=== PATIENT | female | born 1935 ===

== ENCOUNTER 2017-02-12 06:34 | Day surgery (SDC) | payer MEDICARE, BC ==
[2017-02-07 07:17] VITALS: BMI 22.8
[2017-02-12] MEDS ORDERED: Lidocaine 2% Inj (20ml) ONE (06:42)
[2017-02-12] MEDS ORDERED: Phenylephrine 10 mg/ml Inj ONE (06:43)
[2017-02-12] MEDS ORDERED: Iohexol 350mgl/ml 50 ML ONE (06:43)
[2017-02-12] MEDS ORDERED: Iodixanol 320 MG/ML 100 ML BOTTLE IV ONE (06:43)
[2017-02-12] MEDS ORDERED: Iodixanol 320 MG/ML 200 ML BOTTLE IV ONE (06:43)
[2017-02-12] MEDS ORDERED: Nitroglycerin 50mg in D5W 0 MG/0 ML BOTTLE IV ONE (06:44)
[2017-02-12] MEDS ORDERED: DiphenhydrAMINE 50 mg/ml Inj ONE (07:05)
[2017-02-12] MEDS ORDERED: Famotidine 20mg/50ml 20 MG/50 ML BAG IVPB ONE (07:05)
[2017-02-12] MEDS ORDERED: Midazolam 2 MG/2 ML VIAL ONE (07:13)
[2017-02-12 07:42] LABS: BASO # 0.03 K/mm3 (0.0-2.0); BASO % 0.3 % (0.0-3.0); EOS # 0.2 (0.0-0.7); EOS % 2.5 % (1.5-5.0); GRAN # 6.09 (1.4-6.5); GRAN % 68.8 % (50.0-68.0); HEMATOCRIT 46.9 % (36.0-48.0); LYMPH # 1.7 (1.2-3.4); MEAN CELL VOLUME 86.4 fl (80.0-105.0); MEAN CORPUSCULAR HEMOGLOBIN 28.4 pg (25.0-35.0); MEAN CORPUSCULAR HGB CONC 32.8 g/dl (31.0-37.0); MEAN PLATELET VOLUME 11.8 fl (7.0-11.0); MONO # 0.8 (0.1-0.6); MONO % 9.4 % (1.0-6.0); RED CELL DISTRIBUTION WIDTH 15.3 % (11.5-14.5); WHITE BLOOD COUNT 8.9 10^3/ul (4.5-11.0)
[2017-02-12 07:51] LABS: INR 1.02 (0.93-1.08); PARTIAL THROMBOPLASTIN TIME 27.1 Seconds (23.7-30.8)
[2017-02-12 07:53] LABS: CALCIUM 10.1 mg/dL (8.4-10.5); POTASSIUM 3.8 mmol/L (3.6-5.0)
[2017-02-12 08:03] VITALS: O2SAT 98
--- NOTE | 2017-02-12 08:28 | HP ---
REASON FOR ADMISSION: Left heart catheterization, possible angioplasty, and abnormal stress test. BRIEF CLINICAL HISTORY: An 81-year-old female with past medical history significant for coronary artery disease, hypertension, hyperlipidemia, history of lymphocytic leukemia, pulmonary embolism in the past, history of DVT, was on Coumadin in 2016, and had a recent stress test abnormal suggestive of ischemia. The patient is scheduled for elective cardiac cath possible angioplasty. PAST MEDICAL HISTORY: Significant for lymphocytic leukemia, anemia, hypertension, hyperlipidemia, diabetes, pulmonary embolism, and history of DVT in the past. SOCIAL HISTORY: Denies any history of alcohol abuse. PREVIOUS CARDIAC WORKUP: As follows; the patient had echocardiography on 12/14/2015 that showed ejection fraction of 55% to 60%, mitral regurgitation, mild tricuspid regurgitation, and small pericardial effusion. The patient had pacemaker placed on 01/20/2016 and a single-chamber VVI pacemaker was placed with multiple pauses. Recently, the patient had a stress test done on 01/29/2017 that showed abnormal myocardial perfusion study, partially reversible inferolateral defect suspicious for ischemia. So, the patient is scheduled for elective cardiac cath possible angioplasty. CURRENT MEDICATIONS: The patient is taking valsartan one tablet daily, hydrochlorothiazide 25 mg daily, metformin, and glipizide. ALLERGIES: ALLERGY TO IODINE AND AMBIEN. REVIEW OF SYSTEMS: As per HPI. PHYSICAL EXAMINATION: As follows: VITAL SIGNS: Temperature afebrile, heart rate 64, and blood pressure 140/62. Height of the patient is 5 feet. Weight of the patient is 125 pounds. HEENT: PERRLA. Extraocular muscles intact. NECK: Supple. No carotid bruits. No thyromegaly. CHEST: Clear to auscultation. HEART: S1 and S2 regular. ABDOMEN: Soft. EXTREMITIES: Clubbing and cyanosis negative. LABORATORY DATA: Blood workup pending. IMPRESSION: Abnormal stress test suspicious for ischemia, ejection fraction of 56%, partial reversible inferolateral defect suspicious for ischemia, diabetes, hypertension, hyperlipidemia, history of pacemaker, and single-chamber VVI on 01/20/2016. RECOMMENDATIONS: We will order for the Plavix and aspirin. Find the blood workup and If the blood workup is within normal limits, we will pursue for cardiac catheterization. Further recommendation after cardiac catheterization. We will follow with you. Thank you Dr. Yeh for providing me the opportunity in taking care of the patient, [place]. James Man MD cc: William Yeh MD [facility] # [id number]
[2017-02-12] MEDS ORDERED: Eptifibatide 20 mg/10mL Inj IVP ONE (08:36)
[2017-02-12] MEDS ORDERED: Sodium Chloride 0.9% 1,000 ML IV SCH (09:15)
[2017-02-12 10:42] VITALS: RESP 20
[2017-02-12] MEDS ORDERED: Insulin Reg-MEDIUM-Coverage SC SCH (11:45)
--- NOTE | 2017-02-12 12:12 | CON ---
HISTORY OF PRESENT ILLNESS: An 81-year-old female with a history of hypertension, , hypothyroidism, CAD. The patient was most recently found to have a positive stress test and history of CAD. 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 Man, had a cardiac catheterization, was found to have an 80% blockage which was treated with a stent. The patient had been on Plavix in the past, however, developed a GI bleed and was taken off Plavix, but remained on aspirin. The patient will be put back on Plavix, but have her stool checked weekly for occult blood. The patient is seen with her daughter at the bedside, post catheterization and post stent. PHYSICAL EXAMINATION VITAL SIGNS: Stable. Blood pressure 162/94, temperature is 98.1. Blood sugar is 179, BUN and creatinine are stable at 24 and 1.1. H and H are within normal limits. GENERAL: She is a well-developed, well-nourished, female with a history of CVA with some right hemiparesis persistent. HEART EXAMINATION: Regular sinus rhythm. CHEST: Clear to auscultation. ABDOMEN: Obese, but benign. EXTREMITIES: Without cyanosis, clubbing, or edema. NEUROLOGIC EXAMINATION: Grossly intact. IMPRESSION: This is an 81-year-old female with a history of cerebrovascular accident, coronary artery disease, status post recent 80% blockage treated with stent, history of gastrointestinal bleed in the past. William Yeh MD
[2017-02-12 12:16] VITALS: TEMP 98.2
[2017-02-12] MEDS ORDERED: Potassium Chloride 20 mEq ER Tab PO ONE (13:00)
[2017-02-12 14:09] LABS: BASO # 0.02 K/mm3 (0.0-2.0); BASO % 0.2 % (0.0-3.0); GRAN # 8.27 (1.4-6.5); GRAN % 90.3 % (50.0-68.0); HEMATOCRIT 41.7 % (36.0-48.0); LYMPH # 0.8 (1.2-3.4); LYMPH % 9.1 % (22.0-35.0); MEAN CELL VOLUME 85.8 fl (80.0-105.0); MEAN CORPUSCULAR HEMOGLOBIN 28.2 pg (25.0-35.0); MEAN CORPUSCULAR HGB CONC 32.9 g/dl (31.0-37.0); MEAN PLATELET VOLUME 11.8 fl (7.0-11.0); MONO % 0.4 % (1.0-6.0); PLATELET COUNT 177 10^3/uL (120.0-450.0); RED CELL DISTRIBUTION WIDTH 15.2 % (11.5-14.5); WHITE BLOOD COUNT 9.2 10^3/ul (4.5-11.0)
[2017-02-12 14:16] LABS: CALCIUM 9.1 mg/dL (8.4-10.5); POTASSIUM 4.1 mmol/L (3.6-5.0)
[2017-02-12 14:28] LABS: BAND 2 % (0-2); NEUTROPHIL 94 % (50.0-70.0); PLATELET ESTIMATE NORMAL (NORMAL)
[2017-02-12 15:36] VITALS: BP 109/54; PULSE 69
--- NOTE | 2017-02-12 22:29 | CARD ---
APPROVED REPORT Procedure(s) performed: Left Heart Catheterization PTCA with Stenting of Proximal LAD HISTORY The patient is a 81 year-old female with a history of : most recent EF: 56%. (EF Method: RADIONUCLIDE), previous CVA remote >= 2 weeks, diabetes mellitus with oral treatment , hypertension , dyslipidemia , cerebrovascular disease , Hx. of lymphocytic leukemia,DVT,PE,S/p PPM on 01/20/2016 who has recent abnormal stress test , reversible infero-lateral ischemia.. INDICATION The indication(s) include : positive stress test. CASE TECHNIQUE The patient was brought electively to the Cardiac Catheterization Laboratory in a fasting state and was prepped and draped in a sterile manner. The right femoral groin was infiltrated with 2% Lidocaine subcutaneous anesthesia. A 6 Fr x 11 cm Edel sheath was inserted into the right femoral artery without difficulty. Coronary angiography was performed using coronary diagnostic catheters. The left coronary system was accessed and visualized with a Diagnostic ,5 Fr JL 3.5 catheter. The right coronary system was accessed and visualized with a Diagnostic ,5 Fr JR 3.5 catheter. The left ventricle was accessed and visualized with a 5 Fr Pigtail 145 (Angled) catheter. Left ventricular/Aortic Valve gradient assessed on pullback. Left ventriculogram was performed in CHURCH projection. Closure device was deployed with a 6 Fr Angio-Seal without any complications. The patient tolerated the procedure well and there were no complications associated with the procedure. Vessel Analysis The patient's coronary anatomy is right dominant. The left main coronary artery is a medium size vessel with diffuse calcification noted throughout this vessel and without significant stenosis. The left main bifurcates to the left anterior descending and circumflex. The left anterior descending artery is a large size vessel with diffuse calcification noted throughout this vessel and with significant stenosis. There is a 80% stenosis in the proximal segment. long tubular stenosis The first diagonal branch is a medium size vessel with diffuse calcification noted throughout this vessel and without significant stenosis. The second diagonal branch is a medium size vessel with diffuse calcification noted throughout this vessel and without significant stenosis. The third diagonal branch is a medium size vessel with diffuse calcification noted throughout this vessel and without significant stenosis. The circumflex artery is a medium size vessel with diffuse calcification noted throughout this vessel and without significant stenosis. The first obtuse marginal branch is a large size vessel with diffuse calcification noted throughout this vessel and with significant stenosis. There is a 60% stenosis in the proximal segment. long tubular stenosis The right coronary artery is a large size vessel with diffuse calcification noted throughout this vessel and without significant stenosis. There is a 40% stenosis in the mid segment. The right posterior descending artery is a large size vessel with diffuse calcification noted throughout this vessel and with significant stenosis. There is a 100% stenosis in the mid segment. multiple stenoses The right posterolateral branch is a large size vessel with diffuse calcification noted throughout this vessel and without significant stenosis. R PDA iswell collateralized from LAD Left Ventricle The left ventricle is normal in size with normal contractility. There was no cardiomyopathy. The left ventricular ejection fraction is estimated to be 55%. The left ventricular end diastolic pressure is 25 mmHg. There was no gradient across the aortic valve upon pullback. PCI Technique Lesion Anticoagulation was achieved with Heparin. Percutaneous coronary intervention was performed on the proximal left anterior descending artery segment. The lesion stenosis prior to intervention was 80-90% with KEYANNA 2 flow. A 6 Fr XB 3 Guide Catheter was used to engage the ostium. A 0.014 x 182 cm Luge Interventional Guidewire was used to cross the lesion. BALLOON DILATION A Balloon catheter 2.5 x 10 mm Sprinter RX was inserted and inflated up to 8.00atm for 22seconds. STENT DEPLOYMENT A drug-eluting stent 3.0 x 15 mm Resolute JUAN was inserted and inflated up to 12.00atm for 15seconds. Final angiography reveals 0 % stenosis with KEYANNA 3 flow. 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 High grade Stenosis in proximal LAD Moderate diz in Cx( OM1). Preserved lv Fx,EF-55,EDP-25 mm of Hg Successful PTCA with JUAN of proximal LAD. Recommendations Daily ASA with Plavix for at least one year Aggressive Medical TherapyCardiac Risk Reduction Program CC;Shahzad / Yelena
--- NOTE | 2017-02-13 09:44 | CARD ---
APPROVED REPORT EKG Measurement Heart [id number] <Conclusion> Electronic ventricular pacemaker
--- NOTE | 2017-02-13 09:44 | CARD ---
APPROVED REPORT EKG Measurement Heart [id number] <Conclusion> Electronic ventricular pacemaker
[2017-02-13] MEDS ORDERED: Non Formulary Medication (Valsartan/Hydrochlorothiazide [Valsartan-Hctz 320-25 Mg Tab] 1 T PO SCH (10:00)
== END 2017-02-12 18:03 | disposition home or self-care (01) ==
LOC: CATH 06:34 → 2RSO 09:00 → CATH 18:03
PROVIDERS: ATTEND Internal Medicine Cardiovascular Disease
DX: I25.10 Atherosclerotic heart disease of native coronary artery without angina pectoris (principal); I10 Essential (primary) hypertension; I69.351 Hemiplegia and hemiparesis following cerebral infarction affecting right dominant side; E78.5 Hyperlipidemia, unspecified; C91.90 Lymphoid leukemia, unspecified not having achieved remission; E11.9 Type 2 diabetes mellitus without complications; I08.1 Rheumatic disorders of both mitral and tricuspid valves; E03.9 Hypothyroidism, unspecified; Z86.711 Personal history of pulmonary embolism; Z86.718 Personal history of other venous thrombosis and embolism; Z95.0 Presence of cardiac pacemaker
CPT/HCPCS: 36415; 80048; 80061; 82948; 85025; 85175; 85610; 85730; 86850; 86900; 93005; 93458; 99152; C1725; C1760; C1769 ×2; C1874; C1887 ×2; C2629; C9600; J1200; J1327; J1644; J1940; J2250; J2930; J3010; J7040 ×2; Q9967

== ENCOUNTER 2018-05-27 09:00 | Outpatient (CLI) | payer MEDICARE, BC | END 2018-05-27 09:15 | disposition home or self-care (01) | LOC: CARDIO 09:00 ==

== ENCOUNTER 2018-06-20 13:26 | Inpatient (IN) | payer MEDICARE, BC ==
[2018-06-20 13:26] VITALS: BMI 22.1
--- NOTE | 2018-06-20 13:39 | ED PDOC ---
Arrival/HPI - General Time Seen by Provider: 06/20/18 13:27 Historian: Patient, Spouse - History of Present Illness Narrative History of Present Illness (Text): 06/20/18 13:53 82 year old female, whose past medical history includes CVA, hypertension, NIDD M, chronic lymphocytic leukemia, and anemia, who presents to the emergency department complaining of ulcer on the left foot for the past 2 weeks. Patient states the ulcer is between the 4th and 5th digit on the left foot. She saw her clay house worker for the presenting complaint and he sent her to the emergency department for further evaluation with rx saying "painful ischemic ulcer left 4th digit. Please admit patient and consult Dr. Okeefe. Needs vascular consult." She denies any injury to the area, fevers, chills, headache, dizziness, chest pain, shortness of breath, dyspnea on exertion, cough, abdominal pain, nausea, vomiting, diarrhea, back pain, neck pain, or any other complaint. PMD: Dr. Dalton Yeh Sprayer Hand: Dr. Paz 06/20/18 15:07 Time/Duration: < month (2 weeks) Symptom Onset: Gradual Symptom Course: Unchanged Activities at Onset: Light Context: Home Past Medical History - Provider Review Nursing Documentation Reviewed: Yes - Infectious Disease Hx of Infectious Diseases: None - Tetanus Immunization Tetanus Immunization: Up to Date - Cardiac Hx Pacemaker: Yes - Pulmonary Hx Asthma: No (family denies) - Neurological Hx Paralysis: No - HEENT Hx Cataracts: Yes (left eye) Hx Glaucoma: Yes (left eye had sx. right eye needs sx) - Renal Hx Renal Disorder: No - Endocrine/Metabolic Hx Diabetes Mellitus Type 1: Yes - Hematological/Oncological Hx Blood Transfusions: No Hx Blood Transfusion Reaction: No - Integumentary Other/Comment: shingle - Musculoskeletal/Rheumatological Hx Arthritis: Yes - Gastrointestinal Hx Gastroesophageal Reflux: Yes - Genitourinary/Gynecological Hx Genitourinary Disorders: No Hx Reproductive Disorders: No - Psychiatric Hx Emotional Abuse: No Hx Physical Abuse: No Hx Substance Use: No - Surgical History Hx Cardiac Catheterization: Yes (stent x1) - Anesthesia Hx Anesthesia Reactions: No Hx Malignant Hyperthermia: No - Suicidal Assessment Feels Threatened In Home Enviroment: No Family/Social History - Physician Review Nursing Documentation Reviewed: Yes Family/Social History: No Known Family HX Smoking Status: Never Smoked Hx Alcohol Use: No Hx Substance Use: No Hx Substance Use Treatment: No Allergies/Home Meds Allergies/Adverse Reactions: Allergies iodine Allergy (Verified 05/22/16 16:53) ANAPHYLAXIS zolpidem tartrate [From Ambien] Adverse Reaction (Verified 05/22/16 16:53) DIZZINESS Home Medications: Home Meds Medication Instructions Recorded Confirmed RX: Glipizide 10 mg PO BID 08/20/14 02/25/18 Linagliptin/Metformin HCl 1 tab PO BID 12/13/15 02/25/18 [Jentadueto 2.5 mg-500 mg] Valsartan/Hydrochlorothiazide 1 tab PO DAILY 12/13/15 02/25/18 [Valsartan and Hydrochlorothiazide 25 mg-320 M] Dorzolamide 2%/Timolol 0.5% 1 uci BOTHEYES DAILY 02/12/17 02/25/18 [Cosopt Ocumeter Plus 2%-0.5% 10 Ml] Aspirin [Adult Aspirin] 81 mg PO DAILY 02/25/18 02/25/18 Clopidogrel [Plavix] 75 mg PO DAILY 02/25/18 02/25/18 Review of Systems - Review of Systems Constitutional: absent: Fevers Eyes: absent: Vision Changes Respiratory: absent: SOB, Cough Cardiovascular: absent: Chest Pain Gastrointestinal: absent: Abdominal Pain, Diarrhea, Nausea, Vomiting Genitourinary Female: absent: Dysuria Musculoskeletal: absent: Back Pain, Neck Pain Skin: Ulcer (to the left foot between the 4th and 5th digit). absent: Rash Neurological: absent: Headache, Dizziness Endocrine: absent: Diaphoresis Physical Exam Vital Signs Reviewed: Yes Temperature: Afebrile Blood Pressure: Normal Pulse: Regular Respiratory Rate: Normal Appearance: Positive for: Well-Appearing, Non-Toxic, Comfortable Pain Distress: None Mental Status: Positive for: Alert and Oriented X 3 - Systems Exam Head: Present: Atraumatic, Normocephalic Pupils: Present: PERRL Extroacular Muscles: Present: EOMI Conjunctiva: Present: Normal Mouth: Present: Moist Mucous Membranes Neck: Present: Normal Range of Motion Respiratory/Chest: Present: Clear to Auscultation, Good Air Exchange. No: Respiratory Distress, Accessory Muscle Use Cardiovascular: Present: Regular Rate and Rhythm, Normal S1, S2. No: Murmurs Abdomen: No: Tenderness, Distention, Peritoneal Signs Back: Present: Normal Inspection Upper Extremity: Present: Normal Inspection. No: Cyanosis, Edema Lower Extremity: Present: NORMAL PULSES (positive doppler pulses to the left foot ), Other (dime size lesion to the lateral side of the 4th toe, small amount of erythema around the lesion. ). No: Edema Neurological: Present: GCS=15, CN II-XII Intact, Speech Normal Skin: Present: Warm, Dry, Normal Color. No: Rashes Psychiatric: Present: Alert, Oriented x 3, Normal Insight, Normal Concentration Medical Decision Making ED Course and Treatment: 06/20/18 14:01 Impression: 82 year old female who presents to the complaining of ulcer to the left foot. Plan: -- Labs -- Blood Culture -- Left lower extremity ultra sound -- Reassess and disposition Prior Visits: Notes and results from previous visits were reviewed. Progress Notes: 06/20/18 15:07 Podiatry resident aware of patient 06/20/18 15:19 Ultra Sound reviewed by radiologist, shows: IMPRESSION: 1. limited study due to calcified vessels. 2. Possible right SFA occlusive disease. 3. bilateral tibial disease. 06/20/18 15:50 Foot X-ray reviewed by radiologist, shows: IMPRESSION: No acute findings 06/20/18 17:15 evaluated and recommends admission for diabetic foot wound. Spoke to CEM[employer]ULT INSTALLER covering for Dr. Yeh who accepts patient. Wound cultures sent. - Lab Interpretations I have reviewed the lab results: Yes - Scribe Statement The provider has reviewed the documentation as recorded by the Scribe Ny Olver[place] Provider Scribe Attestation: All medical record entries made by the Scribe were at my direction and personally dictated by me. I have reviewed the chart and agree that the record accurately reflects my personal performance of the history, physical exam, medical decision making, and the department course for this patient. I have also personally directed, reviewed, and agree with the discharge instructions and disposition. Disposition/Present on Arrival - Present on Arrival Any Indicators Present on Arrival: No History of DVT/PE: Yes History of Uncontrolled Diabetes: No Urinary Catheter: No History Surgical Site Infection Following: None - Disposition Have Diagnosis and Disposition been Completed?: Yes Diagnosis: Wound, open, foot Disposition: HOSPITALIZED Disposition Time: 13:52 Patient Plan: Admission Condition: FAIR Referrals: William Yeh MD [Primary Care Provider] - Follow up with primary
[2018-06-20 14:59] LABS: BASO # 0.04 K/mm3 (0.0-2.0); BASO % 0.4 % (0.0-3.0); EOS # 0.3 (0.0-0.7); EOS % 2.8 % (1.5-5.0); HEMOGLOBIN 14.8 g/dL (12.0-16.0); LYMPH # 2.2 (1.2-3.4); LYMPH % 22.9 % (22.0-35.0); MEAN CELL VOLUME 86.6 fl (80.0-105.0); MEAN CORPUSCULAR HEMOGLOBIN 28.4 pg (25.0-35.0); MEAN CORPUSCULAR HGB CONC 32.7 g/dl (31.0-37.0); MEAN PLATELET VOLUME 11.4 fl (7.0-11.0); MONO % 10.6 % (1.0-6.0); RBC 5.22 10^6/uL (3.5-6.1); RED CELL DISTRIBUTION WIDTH 14.6 % (11.5-14.5); WHITE BLOOD COUNT 9.4 10^3/uL (4.5-11.0)
[2018-06-20 15:08] LABS: ALB/GLOB RATIO 1.6 (1.1-1.8); ALBUMIN 4.8 g/dL (3.0-4.8); ALT/SGPT 15 U/L (7-56); AST/SGOT 31 U/L (14-36); BLOOD UREA NITROGEN 32 mg/dL (7-21); GFR NON-AFRICAN AMERICAN 53
--- NOTE | 2018-06-20 15:17 | US ---
PROCEDURE: Lower extremity VERONICA exam HISTORY: Peripheral vascular disease with pain and ulceration. Diabetes.. PHYSICIAN(S): Manolo Armendariz MD. FINDINGS: The exam is very limited by calcified noncompressible vessels at all levels. The resting ABIs are not obtainable The brachial systolic pressures are symmetric. The high and low thigh PVR waveforms are relatively normal and symmetric. The left calf PVR waveform is normal and augments normally. The right calf PVR waveform does not augment. This could represent subtle right SFA occlusive disease. The ankle and metatarsal waveforms are severely blunted bilaterally and symmetric. This is consistent with bilateral tibial disease. IMPRESSION: 1. Limited study due to calcified vessels. 2. Possible right SFA occlusive disease. 3. Bilateral tibial disease.
--- NOTE | 2018-06-20 15:46 | RAD ---
Date of service: 06/20/2018 PROCEDURE: Left Foot Radiographs. HISTORY: lesion btw 4th and 5th toe COMPARISON: None. FINDINGS: BONES: Bone alignment is normal. There is diffuse bone demineralization. There is mild periarticular calcification in the 5th proximal interphalangeal joint and at the 4th meta tarsal phalangeal joint. No acute fracture or bone destruction JOINTS: Normal. SOFT TISSUES: Normal. OTHER FINDINGS: There are atherosclerotic vascular calcifications with. IMPRESSION: No acute findings.
--- NOTE | 2018-06-20 17:28 | CP.PCM.CON ---
<Harry Pickens - Last Filed: 06/21/18 07:55> History of Present Illness - History of Present Illness History of Present Illness: Podiatry consult note for Dr. Paz/Dr. Rice 82 year old female with PMHx of CVA, hypertension, NIDDM, chronic lymphocytic leukemia, and anemia presented to the emergency department complaining of ulcer on the left foot for the past 2 weeks. Patient saw her distance learning administrator who sent her to the emergency department for further evaluation with with vascular consult. [facility] present at bedside who denies any injury to the area, fevers, chills, headache, dizziness, chest pain, shortness of breath, dyspnea on exertion, cough, abdominal pain, nausea, vomiting, diarrhea, back pain, neck pain, or any other complaint. PMD: Dr. Dalton Yeh Emergency Management Director: Dr. Paz Review of Systems - Review of Systems All systems: reviewed and no additional remarkable complaints except Review of Systems: As per HPI Past Patient History - Infectious Disease Hx of Infectious Diseases: None - Tetanus Immunizations Tetanus Immunization: Up to Date - Past Medical History & Family History Past Medical History?: Yes - Past Social History Smoking Status: Never Smoked - CARDIAC Hx Pacemaker: Yes - PULMONARY Hx Asthma: No (family denies) - NEUROLOGICAL Hx Paralysis: No - HEENT Hx Cataracts: Yes (left eye) Hx Glaucoma: Yes (left eye had sx. right eye needs sx) - RENAL Hx Chronic Kidney Disease: No - ENDOCRINE/METABOLIC Hx Diabetes Mellitus Type 1: Yes - HEMATOLOGICAL/ONCOLOGICAL Hx Blood Transfusions: No Hx Blood Transfusion Reaction: No - INTEGUMENTARY Other/Comment: shingle - MUSCULOSKELETAL/RHEUMATOLOGICAL Hx Arthritis: Yes - GASTROINTESTINAL Hx Gastroesophageal Reflux: Yes - GENITOURINARY/GYNECOLOGICAL Hx Genitourinary Disorders: No Hx Reproductive Disorders: No - PSYCHIATRIC Hx Emotional Abuse: No Hx Physical Abuse: No Hx Substance Use: No - SURGICAL HISTORY Hx Cardiac Catheterization: Yes (stent x1) - ANESTHESIA Hx Anesthesia Reactions: No Hx Malignant Hyperthermia: No Meds Allergies/Adverse Reactions: Allergies Allergy/AdvReac Type Severity Reaction Status Date / Time iodine Allergy ANAPHYLAXIS Verified 06/20/18 20:40 zolpidem tartrate AdvReac DIZZINESS Verified 06/20/18 20:40 [From Ambien] Physical Exam - Constitutional Appears: Well, Non-toxic, No Acute Distress - Head Exam Head Exam: ATRAUMATIC, NORMOCEPHALIC - Extremities Exam Additional comments: Bilateral Lower Extremity Exam VASC: DP and PT non-palpable bilaterally, CFT delayed, TG warm to cool, no edema noted NEURO: grossly intact DERM: 1 cm X 1 cm wound noted to the lateral aspect of the right 4th digit with 80% fibrotic base with a 20% necrotic eschar, no drainage, no probe to bone, no malodor, no tunneling or tracking ORTHO: significant pain on palpation to the wound, and pain with 4th and 5th digit ranges of motion - Neurological Exam Neurological exam: Alert, Oriented x3 - Psychiatric Exam Psychiatric exam: Normal Affect, Normal Mood Results - Vital Signs Recent Vital Signs: Last Vital Signs Temp 98.1 F 06/20/18 16:51 Pulse 52 L 06/20/18 16:51 Resp 18 06/20/18 16:51 BP 112/54 L 06/20/18 16:51 Pulse Ox 97 06/20/18 16:51 - Labs Result Diagrams: 06/20/18 14:30 06/20/18 14:30 Labs: Laboratory Results - last 24 hr 06/20/18 06/20/18 14:30 14:30 WBC 9.4 RBC 5.22 Hgb 14.8 Hct 45.2 MCV 86.6 MCH 28.4 MCHC 32.7 RDW 14.6 H Plt Count 231 MPV 11.4 H Neut % (Auto) 63.3 Lymph % (Auto) 22.9 [place] % (Auto) 10.6 H Eos % (Auto) 2.8 Baso % (Auto) 0.4 Lymph # (Auto) 2.2 [place] # (Auto) 1.0 H Eos # (Auto) 0.3 Baso # (Auto) 0.04 Absolute Neuts (auto) 5.93 Sodium 143 Potassium 3.9 Chloride 105 Carbon Dioxide 28 Anion Gap 14 BUN 32 H Creatinine 1.0 Est GFR ( Amer) > 60 Est GFR (Non-Af Amer) 53 Random Glucose 85 Calcium 11.0 H Total Bilirubin 0.5 AST 31 ALT 15 Alkaline Phosphatase 68 Total Protein 7.8 Albumin 4.8 Globulin 3.0 Albumin/Globulin Ratio 1.6 Assessment & Plan - Assessment and Plan (Free Text) Assessment: 82 y/o female patient was seen and evaluated for right 4th digit wound Plan: Patient seen and evaluated at bedside with Dr. Rice Plan discussed with attending Chart, labs and vitals reviewed Vascular placed on consult, recommendations appreciated VEROINCA/PVR ordered Wound dressed with betadine, DSD Podiatry will continue to follow patient - Date & Time Date: 06/21/18 Time: 08:13 <Too Rice - Last Filed: 06/21/18 14:37> Meds - Medications Medications: Current Medications Acetaminophen (Tylenol 325mg Tab) 650 mg PO Q4H PRN PRN Reason: Pain, moderate (4-7) Last Admin: 06/21/18 12:32 Dose: 650 mg Aspirin (Ecotrin) 81 mg PO DAILY [facility] Last Admin: 06/21/18 10:27 Dose: 81 mg Clopidogrel Bisulfate (Plavix) 75 mg PO DAILY [facility] Last Admin: 06/21/18 10:27 Dose: 75 mg Dorzolamide/Timolol (Cosopt 2%-0.5% Opht) 1 drop OU DAILY [facility] Glipizide (Glucotrol) 10 mg PO BID [facility] Last Admin: 06/21/18 10:27 Dose: 10 mg Home Med (Home Med) 1 unit PO HS [facility] Hydrochlorothiazide (Hydrodiuril) 25 mg PO DAILY [facility] Last Admin: 06/21/18 10:26 Dose: 25 mg Ampicillin Sodium/Sulbactam Sodium (Unasyn) 1 gm in 100 mls @ 100 mls/hr IVPB Q8 [facility]; Protocol Last Admin: 06/21/18 06:38 Dose: 100 mls/hr Linagliptin/Metformin Hcl [ Jentadueto 2.5 Mg- 500 Mg Tab] (Home Med) 1 tab PO BID [facility] Last Admin: 06/21/18 10:27 Dose: Not Given Valsartan (Diovan) 320 mg PO DAILY [facility] Last Admin: 06/21/18 10:27 Dose: 320 mg Results - Vital Signs Recent Vital Signs: Last Vital Signs Temp 98 F 06/21/18 06:00 Pulse 64 06/21/18 06:00 Resp 18 06/21/18 06:00 BP 137/72 06/21/18 06:00 Pulse Ox 97 06/21/18 06:00 - Labs Result Diagrams: 06/20/18 14:30 06/20/18 14:30 Labs: Laboratory Results - last 24 hr 02/07/19 02/07/19 02/07/19 14:30 14:30 18:42 WBC 9.4 RBC 5.22 Hgb 14.8 Hct 45.2 MCV 86.6 MCH 28.4 MCHC 32.7 RDW 14.6 H Plt Count 231 MPV 11.4 H Neut % (Auto) 63.3 Lymph % (Auto) 22.9 [place] % (Auto) 10.6 H Eos % (Auto) 2.8 Baso % (Auto) 0.4 Lymph # (Auto) 2.2 [place] # (Auto) 1.0 H Eos # (Auto) 0.3 Baso # (Auto) 0.04 Absolute Neuts (auto) 5.93 Sodium 143 Potassium 3.9 Chloride 105 Carbon Dioxide 28 Anion Gap 14 BUN 32 H Creatinine 1.0 Est GFR ( Amer) > 60 Est GFR (Non-Af Amer) 53 POC Glucose (mg/dL) 175 H Random Glucose 85 Calcium 11.0 H Total Bilirubin 0.5 AST 31 ALT 15 Alkaline Phosphatase 68 Total Protein 7.8 Albumin 4.8 Globulin 3.0 Albumin/Globulin Ratio 1.6 PTH Intact Whole Molec 06/20/18 06/20/18 06/21/18 20:57 21:00 07:06 WBC RBC Hgb Hct MCV MCH MCHC RDW Plt Count MPV Neut % (Auto) Lymph % (Auto) [place] % (Auto) Eos % (Auto) Baso % (Auto) Lymph # (Auto) [place] # (Auto) Eos # (Auto) Baso # (Auto) Absolute Neuts (auto) Sodium Potassium Chloride Carbon Dioxide Anion Gap BUN Creatinine Est GFR ( Amer) Est GFR (Non-Af Amer) POC Glucose (mg/dL) 281 H 72 Random Glucose Calcium Total Bilirubin AST ALT Alkaline Phosphatase Total Protein Albumin Globulin Albumin/Globulin Ratio PTH Intact Whole Molec 14 Attending/Attestation - Attestation I have personally seen and examined this patient.: Yes I have fully participated in the care of the patient.: Yes I have reviewed all pertinent clinical information: Yes
[2018-06-20] MEDS ORDERED: Morphine 2 mg/ml ISec IVP STA (18:56)
[2018-06-20] MEDS ORDERED: Influenza Vaccine 60 mcg/0.5 mL SYR (4YR UP) IM ONE (21:53)
[2018-06-20] MEDS ORDERED: Pneumococcal 23-Valent Vaccine IM ONE (21:53)
[2018-06-20] MEDS: AMPicillin/Sulbactam 1.5gm 1 GM/100 ML BAG IVPB SCH (22:56)
--- NOTE | 2018-06-21 02:16 | CP.PCM.PN ---
Subjective - Date & Time of Evaluation Date of Evaluation: 06/21/18 Time of Evaluation: 02:16 - Subjective Subjective: Patient was seen because she had requested pain medicine for pain left 4th toe. Has no other complaints. Medical record was reviewed. This 82 year old woman was admitted with ulcer on left foot for 2 weeks. Has PMH of NIDDM,HTN, CVA,CLL,anemia. Objective - Vital Signs/Intake and Output Vital Signs (last 24 hours): Temp Pulse Resp BP Pulse Ox 98 F 81 20 159/82 H 99 06/20/18 21:48 06/20/18 21:48 06/20/18 21:48 06/20/18 21:48 06/20/18 21:48 - Medications Medications: Current Medications Aspirin (Ecotrin) 81 mg PO DAILY [facility] Clopidogrel Bisulfate (Plavix) 75 mg PO DAILY [facility] Dorzolamide/Timolol (Cosopt 2%-0.5% Opht) 1 drop OU DAILY [facility] Glipizide (Glucotrol) 10 mg PO BID [facility] Hydrochlorothiazide (Hydrodiuril) 25 mg PO DAILY [facility] Ampicillin Sodium/Sulbactam Sodium (Unasyn) 1 gm in 100 mls @ 100 mls/hr IVPB Q8 [facility]; Protocol Last Admin: 06/20/18 22:56 Dose: 100 mls/hr Linagliptin/Metformin Hcl [ Jentadueto 2.5 Mg- 500 Mg Tab] (Home Med) 1 tab PO BID [facility] Valsartan (Diovan) 320 mg PO DAILY [facility] - Labs Labs: 06/20/18 14:30 06/20/18 14:30 - Constitutional Appears: Well, No Acute Distress - Head Exam Head Exam: ATRAUMATIC, NORMAL INSPECTION, NORMOCEPHALIC - Eye Exam Eye Exam: Normal appearance - ENT Exam ENT Exam: Normal External Ear Exam - Neck Exam Neck Exam: Normal Inspection - Respiratory Exam Respiratory Exam: NORMAL BREATHING PATTERN - Cardiovascular Exam Cardiovascular Exam: absent: JVD - GI/Abdominal Exam GI & Abdominal Exam: absent: Distended - Rectal Exam Rectal Exam: Deferred - Exam Additional comments: Deferred. - Extremities Exam Additional comments: Left 4th toe infection+ - Back Exam Back Exam: NORMAL INSPECTION - Neurological Exam Neurological Exam: Alert, Awake - Psychiatric Exam Psychiatric exam: Normal Affect, Normal Mood - Skin Skin Exam: Normal Color Assessment and Plan - Assessment and Plan (Free Text) Assessment: Left foot infection. NIDDM. HTN. Anemia. Chronic CLL. Plan: Tylenol 650 mg PO x 1. Continue present management.
[2018-06-21] MEDS: AMPicillin/Sulbactam 1.5gm 1 GM/100 ML BAG IVPB SCH ×3 (06:38→22:36)
[2018-06-21] MEDS ORDERED: Non Formulary Medication (Valsartan/Hydrochlorothiazide [Valsartan-Hctz 320-25 Mg Tab] 1 T PO SCH (10:00)
[2018-06-21] MEDS: LINAGLIPTIN PO SCH ×2 (10:27→19:34)
[2018-06-21] MEDS: METFORMIN HCL PO SCH ×2 (10:27→19:34)
--- NOTE | 2018-06-21 13:20 | CP.PCM.PN ---
<Harry Pickens - Last Filed: 06/21/18 13:16> Subjective - Date & Time of Evaluation Date of Evaluation: 06/21/18 Time of Evaluation: 13:16 - Subjective Subjective: Podiatry consult note for Dr. Paz/Dr. Rice 82 year old female seen and evaluated at bedside for left foot 4th digit wound. Patient's daughter is present at bedside. Patient and daughter both state patient is in pain to her left foot. Patient otherwise reports no acute events overnight. Objective - Vital Signs/Intake and Output Vital Signs (last 24 hours): Temp Pulse Resp BP Pulse Ox 98 F 64 18 137/72 97 06/21/18 06:00 06/21/18 06:00 06/21/18 06:00 06/21/18 06:00 06/21/18 06:00 Intake and Output: 06/21/18 06/21/18 06:59 18:59 Intake Total 120 Balance 120 - Medications Medications: Current Medications Acetaminophen (Tylenol 325mg Tab) 650 mg PO Q4H PRN PRN Reason: Pain, moderate (4-7) Last Admin: 06/21/18 12:32 Dose: 650 mg Aspirin (Ecotrin) 81 mg PO DAILY [facility] Last Admin: 06/21/18 10:27 Dose: 81 mg Clopidogrel Bisulfate (Plavix) 75 mg PO DAILY [facility] Last Admin: 06/21/18 10:27 Dose: 75 mg Dorzolamide/Timolol (Cosopt 2%-0.5% Opht) 1 drop OU DAILY [facility] Glipizide (Glucotrol) 10 mg PO BID [facility] Last Admin: 06/21/18 10:27 Dose: 10 mg Home Med (Home Med) 1 unit PO [facility] Hydrochlorothiazide (Hydrodiuril) 25 mg PO DAILY [facility] Last Admin: 06/21/18 10:26 Dose: 25 mg Ampicillin Sodium/Sulbactam Sodium (Unasyn) 1 gm in 100 mls @ 100 mls/hr IVPB Q8 [facility]; Protocol Last Admin: 06/21/18 06:38 Dose: 100 mls/hr Linagliptin/Metformin Hcl [ Jentadueto 2.5 Mg- 500 Mg Tab] (Home Med) 1 tab PO BID [facility] Last Admin: 06/21/18 10:27 Dose: Not Given Valsartan (Diovan) 320 mg PO DAILY [facility] Last Admin: 06/21/18 10:27 Dose: 320 mg - Labs Labs: 06/20/18 14:30 06/20/18 14:30 - Constitutional Appears: Well, Non-toxic, No Acute Distress - Head Exam Head Exam: ATRAUMATIC, NORMOCEPHALIC - Extremities Exam Additional comments: Bilateral Lower Extremity Exam VASC: DP and PT non-palpable bilaterally, CFT delayed, TG warm to cool, no edema noted NEURO: grossly intact DERM: 1 cm X 1 cm wound noted to the lateral aspect of the right 4th digit with 80% fibrotic base with a 20% necrotic eschar, no drainage, no probe to bone, no malodor, no tunneling or tracking ORTHO: significant pain on palpation to the wound, and pain with 4th and 5th digit ranges of motion - Neurological Exam Neurological Exam: Alert, Awake, Oriented x3 - Psychiatric Exam Psychiatric exam: Normal Affect, Normal Mood Assessment and Plan - Assessment and Plan (Free Text) Assessment: 82 y/o female patient was seen and evaluated for right 4th digit wound Plan: Patient seen and evaluated at bedside with Dr. Rice Plan discussed with attending Chart, labs and vitals reviewed Left foot X-ray: no acute findings on X-ray VERONICA/PVR: limited study, calcified vessels, possible right SFA occlusive disease Vascular placed on consult, recommendations appreciated Pending Vascular follow-up Wound Culture Pending Wound dressed with betadine, DSD Podiatry will continue to follow patient <Too Rice - Last Filed: 06/21/18 14:37> Objective - Vital Signs/Intake and Output Vital Signs (last 24 hours): Temp Pulse Resp BP Pulse Ox 98 F 64 18 137/72 97 06/21/18 06:00 06/21/18 06:00 06/21/18 06:00 06/21/18 06:00 06/21/18 06:00 Intake and Output: 06/21/18 06/21/18 06:59 18:59 Intake Total 120 Balance 120 - Medications Medications: Current Medications Acetaminophen (Tylenol 325mg Tab) 650 mg PO Q4H PRN PRN Reason: Pain, moderate (4-7) Last Admin: 06/21/18 12:32 Dose: 650 mg Aspirin (Ecotrin) 81 mg PO DAILY [facility] Last Admin: 02/08/19 10:27 Dose: 81 mg Clopidogrel Bisulfate (Plavix) 75 mg PO DAILY [facility] Last Admin: 06/21/18 10:27 Dose: 75 mg Dorzolamide/Timolol (Cosopt 2%-0.5% Opht) 1 drop OU DAILY [facility] Glipizide (Glucotrol) 10 mg PO BID [facility] Last Admin: 06/21/18 10:27 Dose: 10 mg Home Med (Home Med) 1 unit PO [facility] Hydrochlorothiazide (Hydrodiuril) 25 mg PO DAILY [facility] Last Admin: 06/21/18 10:26 Dose: 25 mg Ampicillin Sodium/Sulbactam Sodium (Unasyn) 1 gm in 100 mls @ 100 mls/hr IVPB Q8 [facility]; Protocol Last Admin: 06/21/18 06:38 Dose: 100 mls/hr Linagliptin/Metformin Hcl [ Jentadueto 2.5 Mg- 500 Mg Tab] (Home Med) 1 tab PO BID [facility] Last Admin: 06/21/18 10:27 Dose: Not Given Valsartan (Diovan) 320 mg PO DAILY [facility] Last Admin: 06/21/18 10:27 Dose: 320 mg - Labs Labs: 06/20/18 14:30 06/20/18 14:30 Attending/Attestation - Attestation I have personally seen and examined this patient.: Yes I have fully participated in the care of the patient.: Yes I have reviewed all pertinent clinical information, including history, physical exam and plan: Yes
--- NOTE | 2018-06-21 15:03 | PN ---
DATE: 06/21/2018 SUBJECTIVE: The patient has no complaints of any chest pain. No shortness of breath. No headaches or dizziness. PHYSICAL EXAMINATION: VITAL SIGNS: Temperature 98, pulse 64, blood pressure 137/72, respirations 18 and O2 saturation 97%. GENERAL: The patient is lying in bed, flat, comfortable. HEENT: No oral lesion. Anicteric sclerae. Moist mucosa. NECK: No JVD, adenopathy, or thyromegaly. CARDIOVASCULAR: S1 and S2, regular. No murmurs, rubs, or gallops. LUNGS: Clear to auscultation bilaterally. No wheeze, rales, or rhonchi. ABDOMEN: Bowel sounds are positive, soft, nontender and nondistended. EXTREMITIES: No cyanosis, clubbing or edema. ASSESSMENT: 1. Hypertension. 2. Diabetes type 2. 3. Chronic lymphocytic leukemia. 4. Left fourth digit wound. 5. Diabetes type 2. PLAN: The patient is currently on valsartan for blood pressure control. The patient is on Glucotrol for her diabetes type 2. The patient is on hydrochlorothiazide for hypertension as well she is receiving IV antibiotics. She is being seen by Dr. Manolo Armendariz and also by Dr. Rice. Wilmar Roca MD
[2018-06-21] MEDS: Dorzolamide 2%/Timolol 0.5% 100 DROP/10 ML BOTTLE OU SCH (17:21)
[2018-06-21] MEDS ORDERED: Oxycodone/Acetaminophen 5/325 mg Tab PO PRN (18:26)
[2018-06-21] MEDS: POLYETHYLENE GLYCOL 3350 17 GM/Dose PACKET PO SCH (18:39)
[2018-06-21] MEDS: METANX PO SCH (22:36)
[2018-06-22] MEDS: AMPicillin/Sulbactam 1.5gm 1 GM/100 ML BAG IVPB SCH ×3 (05:38→21:36)
[2018-06-22] MEDS: Dorzolamide 2%/Timolol 0.5% 100 DROP/10 ML BOTTLE OU SCH (09:25)
[2018-06-22] MEDS: POLYETHYLENE GLYCOL 3350 17 GM/Dose PACKET PO SCH (11:00)
--- NOTE | 2018-06-22 11:44 | CP.PCM.PN ---
<Harry Pickens - Last Filed: 06/22/18 11:42> Subjective - Date & Time of Evaluation Date of Evaluation: 06/22/18 Time of Evaluation: 11:42 - Subjective Subjective: Podiatry consult note for Dr. Paz/Dr. Rice 82 year old female seen and evaluated at bedside for left foot 4th digit wound. Patient seen to be sitting in chair at bedside and denies any complaints at this time. Patient denies any acute symptoms overnight as well. Objective - Vital Signs/Intake and Output Vital Signs (last 24 hours): Temp Pulse Resp BP Pulse Ox 98.2 F 63 20 128/65 98 06/22/18 08:07 06/22/18 08:07 06/22/18 08:07 06/22/18 08:07 06/22/18 08:07 Intake and Output: 06/22/18 06/22/18 06:59 18:59 Intake Total 640 Balance 640 - Medications Medications: Current Medications Acetaminophen (Tylenol 325mg Tab) 650 mg PO Q4H PRN PRN Reason: Pain, moderate (4-7) Last Admin: 06/21/18 17:20 Dose: 650 mg Aspirin (Ecotrin) 81 mg PO DAILY [facility] Last Admin: 06/22/18 09:24 Dose: 81 mg Clopidogrel Bisulfate (Plavix) 75 mg PO DAILY [facility] Last Admin: 06/22/18 09:23 Dose: 75 mg Dorzolamide/Timolol (Cosopt 2%-0.5% Opht) 1 drop OU DAILY [facility] Last Admin: 06/22/18 09:25 Dose: 1 drop Glipizide (Glucotrol) 10 mg PO BID [facility] Last Admin: 06/22/18 09:24 Dose: 10 mg Home Med (Home Med) 1 unit PO HS [facility] Last Admin: 06/21/18 22:36 Dose: 1 unit Hydrochlorothiazide (Hydrodiuril) 25 mg PO DAILY [facility] Last Admin: 06/22/18 09:24 Dose: 25 mg Ampicillin Sodium/Sulbactam Sodium (Unasyn) 1 gm in 100 mls @ 100 mls/hr IVPB Q8 [facility]; Protocol Last Admin: 06/22/18 05:38 Dose: 100 mls/hr Linagliptin/Metformin Hcl [ Jentadueto 2.5 Mg- 500 Mg Tab] (Home Med) 1 tab PO BID [facility] Last Admin: 06/21/18 19:34 Dose: Not Given Oxycodone/Acetaminophen (Percocet 5/325 Mg Tab) 1 tab PO Q6H PRN PRN Reason: Pain, severe (8-10) Stop: 06/24/18 18:27 Polyethylene Glycol (Miralax) 17 gm PO BID [facility] Last Admin: 06/21/18 18:39 Dose: 17 gm Valsartan (Diovan) 320 mg PO DAILY [facility] Last Admin: 06/22/18 09:24 Dose: 320 mg - Labs Labs: 06/20/18 14:30 06/20/18 14:30 - Constitutional Appears: Well, Non-toxic, No Acute Distress - Head Exam Head Exam: ATRAUMATIC, NORMOCEPHALIC - Extremities Exam Additional comments: Bilateral Lower Extremity Exam VASC: DP and PT non-palpable bilaterally, CFT delayed, TG warm to cool, no edema noted NEURO: grossly intact DERM: 1 cm X 1 cm wound noted to the lateral aspect of the right 4th digit with 60% fibrotic base, 10 % granular, and 20% necrotic eschar, no drainage, no probe to bone, no malodor, no tunneling or tracking ORTHO: significant pain on palpation to the wound, and pain with 4th and 5th digit ranges of motion - Neurological Exam Neurological Exam: Alert, Awake, Oriented x3 - Psychiatric Exam Psychiatric exam: Normal Affect, Normal Mood Assessment and Plan - Assessment and Plan (Free Text) Assessment: 82 y/o female patient was seen and evaluated for right 4th digit wound Plan: Patient seen and evaluated at bedside with Dr. Rice Plan discussed with attending Chart, labs and vitals reviewed Left foot X-ray: no acute findings on X-ray VERONICA/PVR: limited study, calcified vessels, possible right SFA occlusive disease Vascular placed on consult, recommendations appreciated Ordered MRI of the Left foot to r/o osteo Wound Culture: Staph A. Wound dressed with betadine, DSD Podiatry will continue to follow patient <Too Rice - Last Filed: 06/24/18 09:28> Objective - Vital Signs/Intake and Output Vital Signs (last 24 hours): Temp Pulse Resp BP Pulse Ox 98 F 67 17 148/81 98 06/24/18 06:00 06/24/18 06:00 06/24/18 06:00 06/24/18 06:00 06/24/18 06:00 Intake and Output: 06/24/18 06/24/18 06:59 18:59 Intake Total 660 Balance 660 - Medications Medications: Current Medications Acetaminophen (Tylenol 325mg Tab) 650 mg PO Q4H PRN PRN Reason: Pain, moderate (4-7) Last Admin: 06/22/18 12:22 Dose: 650 mg Aspirin (Ecotrin) 81 mg PO DAILY [facility] Last Admin: 06/23/18 10:20 Dose: 81 mg Clopidogrel Bisulfate (Plavix) 75 mg PO DAILY [facility] Last Admin: 06/23/18 10:20 Dose: 75 mg Dorzolamide/Timolol (Cosopt 2%-0.5% Opht) 1 drop OU DAILY [facility] Last Admin: 06/23/18 10:21 Dose: 1 drop Glipizide (Glucotrol) 10 mg PO BID [facility] Last Admin: 06/23/18 18:05 Dose: 10 mg Home Med (Home Med) 1 unit PO HS [facility] Last Admin: 06/23/18 21:46 Dose: 1 unit Hydrochlorothiazide (Hydrodiuril) 25 mg PO DAILY [facility] Last Admin: 06/23/18 10:21 Dose: 25 mg Lactic Acid (Lac-Hydrin 12% Cream (140 G)) 10 ea TOP DAILY [facility] Last Admin: 06/23/18 18:06 Dose: 1 applic Linagliptin/Metformin Hcl [ Jentadueto 2.5 Mg- 500 Mg Tab] (Home Med) 1 tab PO BIDWM [facility] Last Admin: 06/24/18 08:16 Dose: 1 tab Polyethylene Glycol (Miralax) 17 gm PO BID [facility] Last Admin: 06/23/18 18:05 Dose: 17 gm Trimethoprim/Sulfamethoxazole (Bactrim Ds Tab) 1 tab PO BID [facility]; Protocol Valsartan (Diovan) 320 mg PO DAILY [facility] Last Admin: 06/23/18 10:20 Dose: 320 mg - Labs Labs: 06/20/18 14:30 06/20/18 14:30 Attending/Attestation - Attestation I have personally seen and examined this patient.: Yes I have fully participated in the care of the patient.: Yes I have reviewed all pertinent clinical information, including history, physical exam and plan: Yes
--- NOTE | 2018-06-22 11:52 | CP.PCM.PN ---
Subjective - Date & Time of Evaluation Date of Evaluation: 06/22/18 Time of Evaluation: 11:30 - Subjective Subjective: Code Star Code star called on Chinese-speaking patient, translation provided by family at bedside. The patient went to use the restroom, and despite being instructed to use the call gonzales for assistance in and out of the restroom and bed, the patient did not call for help. She usually ambulates with a walker for balance. She did not use any assistive devices in going to the restroom and lost her balance, leading her to fall onto the floor behind her making contact with her hip with the floor. She denied trauma to the head. No obvious signs of trauma noted upon examination. Will obtain CTH and Hip Xray to evaluate for any fall associated pathologies. Patient is AAOx3. Her vital signs were stable, except her BP. Will reassess shortly and treat accordingly. Objective - Vital Signs/Intake and Output Vital Signs (last 24 hours): Temp Pulse Resp BP Pulse Ox 98.2 F 63 20 128/65 98 06/22/18 08:07 06/22/18 08:07 06/22/18 08:07 06/22/18 08:07 06/22/18 08:07 Intake and Output: 06/22/18 06/22/18 06:59 18:59 Intake Total 640 Balance 640 - Medications Medications: Current Medications Acetaminophen (Tylenol 325mg Tab) 650 mg PO Q4H PRN PRN Reason: Pain, moderate (4-7) Last Admin: 06/21/18 17:20 Dose: 650 mg Aspirin (Ecotrin) 81 mg PO DAILY [facility] Last Admin: 06/22/18 09:24 Dose: 81 mg Clopidogrel Bisulfate (Plavix) 75 mg PO DAILY [facility] Last Admin: 06/22/18 09:23 Dose: 75 mg Dorzolamide/Timolol (Cosopt 2%-0.5% Opht) 1 drop OU DAILY [facility] Last Admin: 06/22/18 09:25 Dose: 1 drop Glipizide (Glucotrol) 10 mg PO BID [facility] Last Admin: 06/22/18 09:24 Dose: 10 mg Home Med (Home Med) 1 unit PO HS [facility] Last Admin: 06/21/18 22:36 Dose: 1 unit Hydrochlorothiazide (Hydrodiuril) 25 mg PO DAILY [facility] Last Admin: 06/22/18 09:24 Dose: 25 mg Ampicillin Sodium/Sulbactam Sodium (Unasyn) 1 gm in 100 mls @ 100 mls/hr IVPB Q8 [facility]; Protocol Last Admin: 06/22/18 05:38 Dose: 100 mls/hr Linagliptin/Metformin Hcl [ Jentadueto 2.5 Mg- 500 Mg Tab] (Home Med) 1 tab PO BID [facility] Last Admin: 06/21/18 19:34 Dose: Not Given Oxycodone/Acetaminophen (Percocet 5/325 Mg Tab) 1 tab PO Q6H PRN PRN Reason: Pain, severe (8-10) Stop: 06/24/18 18:27 Polyethylene Glycol (Miralax) 17 gm PO BID [facility] Last Admin: 06/21/18 18:39 Dose: 17 gm Valsartan (Diovan) 320 mg PO DAILY [facility] Last Admin: 06/22/18 09:24 Dose: 320 mg - Labs Labs: 06/20/18 14:30 06/20/18 14:30 - Constitutional Appears: No Acute Distress - Head Exam Head Exam: ATRAUMATIC, NORMAL INSPECTION, NORMOCEPHALIC - Eye Exam Eye Exam: EOMI, Normal appearance, PERRL Pupil Exam: NORMAL ACCOMODATION, PERRL - ENT Exam ENT Exam: Mucous Membranes Moist, Normal Exam - Neck Exam Neck Exam: Full ROM, Normal Inspection. absent: Lymphadenopathy - Cardiovascular Exam Cardiovascular Exam: REGULAR RHYTHM, +S1, +S2 - GI/Abdominal Exam GI & Abdominal Exam: Soft, Normal Bowel Sounds. absent: Tenderness - Back Exam Back Exam: NORMAL INSPECTION - Neurological Exam Neurological Exam: Alert, Awake, CN II-XII Intact, Oriented x3. absent: Normal Gait - Psychiatric Exam Psychiatric exam: Normal Affect, Normal Mood - Skin Skin Exam: Dry, Intact, Normal Color, Warm
[2018-06-22] MEDS: LINAGLIPTIN PO SCH (17:26)
[2018-06-22] MEDS: METFORMIN HCL PO SCH (17:26)
[2018-06-22] MEDS: METANX PO SCH (21:38)
--- NOTE | 2018-06-23 00:41 | PN ---
DATE: 06/22/2018 SUBJECTIVE: The patient has no complaints of any chest pain. No shortness of breath. No headaches. PHYSICAL EXAMINATION: VITAL SIGNS: Temperature is 97.8, pulse is 64, blood pressure is 111/65, respirations 18. GENERAL: The patient is lying in bed, flat, comfortable. HEENT: No oral lesion. Anicteric sclerae. Moist mucosa. NECK: No JVD, adenopathy, or thyromegaly. CARDIOVASCULAR: S1 and S2, regular. No murmurs, rubs, or gallops. LUNGS: Clear to auscultation bilaterally. No wheeze, rales, or rhonchi. ABDOMEN: Bowel sounds are positive, soft, nontender and nondistended. EXTREMITIES: No cyanosis, clubbing, or edema. ASSESSMENT: 1. Hypertension. 2. Diabetes type 2. 3. Chronic lymphocytic leukemia. 4. Left fourth digit wound. PLAN: The patient is currently on valsartan for hypertension. Going to continue with glipizide for diabetes. The patient is on hydrochlorothiazide. Going to continue on Miralax for constipation. She is on Plavix daily. The patient is on antibiotics. CT of the head was ordered because she had a fall. I did speak to the patient's nurse. She was assessed by residential. She also has a hip x-ray that has been ordered and is pending. Wilmar Roca MD
[2018-06-23] MEDS: AMPicillin/Sulbactam 1.5gm 1 GM/100 ML BAG IVPB SCH ×3 (05:47→21:44)
[2018-06-23] MEDS: LINAGLIPTIN PO SCH ×2 (08:17→18:05)
[2018-06-23] MEDS: METFORMIN HCL PO SCH ×2 (08:17→18:05)
--- NOTE | 2018-06-23 09:42 | CT ---
Date of service: 06/22/2018 PROCEDURE: CT HEAD WITHOUT CONTRAST. HISTORY: s/p mechanical fall COMPARISON: 09/06/2013 TECHNIQUE: Axial computed tomography images were obtained through the head/brain without intravenous contrast. Radiation dose: Total exam DLP = 845.64 mGy-cm. This CT exam was performed using one or more of the following dose reduction techniques: Automated exposure control, adjustment of the mA and/or kV according to patient size, and/or use of iterative reconstruction technique. FINDINGS: HEMORRHAGE: No intracranial hemorrhage. BRAIN: No mass effect or edema. There is a large area of encephalomalacia in the left frontal lobe. This is unchanged VENTRICLES: Unremarkable. No hydrocephalus. CALVARIUM: Unremarkable. PARANASAL SINUSES: Unremarkable as visualized. No significant inflammatory changes. MASTOID AIR CELLS: Unremarkable as visualized. No inflammatory changes. OTHER FINDINGS: The report concurs with the preliminary [facility] report IMPRESSION: There is a large area of encephalomalacia in the left frontal lobe. This is unchanged No acute intracranial findings
[2018-06-23] MEDS: POLYETHYLENE GLYCOL 3350 17 GM/Dose PACKET PO SCH ×2 (10:20→18:05)
[2018-06-23] MEDS: Dorzolamide 2%/Timolol 0.5% 100 DROP/10 ML BOTTLE OU SCH (10:21)
--- NOTE | 2018-06-23 12:55 | CP.PCM.PN ---
<Harry Pickens - Last Filed: 06/23/18 12:53> Subjective - Date & Time of Evaluation Date of Evaluation: 06/23/18 Time of Evaluation: 12:53 - Subjective Subjective: Podiatry consult note for Dr. Paz/Dr. Rice 82 year old female seen and evaluated at bedside for left foot 4th digit wound. Patient seen to be sitting in chair at bedside and denies any complaints at this time. Patient family is present at bedside. As per nursing, and patient she fell while in the bathroom. Patient denies any other complaints, however. Objective - Vital Signs/Intake and Output Vital Signs (last 24 hours): Temp Pulse Resp BP Pulse Ox 97.7 F 60 20 131/61 97 06/23/18 06:00 06/23/18 06:00 06/23/18 06:00 06/23/18 06:00 06/23/18 06:00 Intake and Output: 06/23/18 06/23/18 06:59 18:59 Intake Total 540 Balance 540 - Medications Medications: Current Medications Acetaminophen (Tylenol 325mg Tab) 650 mg PO Q4H PRN PRN Reason: Pain, moderate (4-7) Last Admin: 06/22/18 12:22 Dose: 650 mg Aspirin (Ecotrin) 81 mg PO DAILY [facility] Last Admin: 06/23/18 10:20 Dose: 81 mg Clopidogrel Bisulfate (Plavix) 75 mg PO DAILY [facility] Last Admin: 06/23/18 10:20 Dose: 75 mg Dorzolamide/Timolol (Cosopt 2%-0.5% Opht) 1 drop OU DAILY [facility] Last Admin: 06/23/18 10:21 Dose: 1 drop Glipizide (Glucotrol) 10 mg PO BID [facility] Last Admin: 06/23/18 10:20 Dose: 10 mg Home Med (Home Med) 1 unit PO HS [facility] Last Admin: 06/22/18 21:38 Dose: 1 unit Hydrochlorothiazide (Hydrodiuril) 25 mg PO DAILY [facility] Last Admin: 06/23/18 10:21 Dose: 25 mg Ampicillin Sodium/Sulbactam Sodium (Unasyn) 1 gm in 100 mls @ 100 mls/hr IVPB Q8 [facility]; Protocol Last Admin: 06/23/18 05:47 Dose: 100 mls/hr Linagliptin/Metformin Hcl [ Jentadueto 2.5 Mg- 500 Mg Tab] (Home Med) 1 tab PO BIDWM [facility] Last Admin: 06/23/18 08:17 Dose: 1 tab Oxycodone/Acetaminophen (Percocet 5/325 Mg Tab) 1 tab PO Q6H PRN PRN Reason: Pain, severe (8-10) Stop: 06/24/18 18:27 Polyethylene Glycol (Miralax) 17 gm PO BID [facility] Last Admin: 06/23/18 10:20 Dose: 17 gm Valsartan (Diovan) 320 mg PO DAILY [facility] Last Admin: 06/23/18 10:20 Dose: 320 mg - Labs Labs: 06/20/18 14:30 06/20/18 14:30 - Constitutional Appears: Well, Non-toxic, No Acute Distress - Head Exam Head Exam: ATRAUMATIC, NORMOCEPHALIC - Extremities Exam Additional comments: Bilateral Lower Extremity Exam VASC: DP and PT non-palpable bilaterally, CFT delayed, TG warm to cool, no edema noted NEURO: grossly intact DERM: 1 cm X 1 cm wound noted to the lateral aspect of the right 4th digit with 60% fibrotic base, 10 % granular, and 20% necrotic eschar, no drainage, no probe to bone, no malodor, no tunneling or tracking ORTHO: significant pain on palpation to the wound, and pain with 4th and 5th digit ranges of motion - Neurological Exam Neurological Exam: Alert, Awake, Oriented x3 - Psychiatric Exam Psychiatric exam: Normal Affect, Normal Mood Assessment and Plan - Assessment and Plan (Free Text) Assessment: 82 y/o female patient was seen and evaluated for right 4th digit wound Plan: Patient seen and evaluated at bedside with Dr. Rice Plan discussed with attending Chart, labs and vitals reviewed Left foot X-ray: no acute findings on X-ray VERONICA/PVR: limited study, calcified vessels, possible right SFA occlusive disease Vascular placed on consult, recommendations appreciated MRI cancelled as patient has pacemaker Wound Culture: Staph A. Wound dressed with betadine, DSD Podiatry will continue to follow patient <Too Rice - Last Filed: 06/24/18 09:25> Objective - Vital Signs/Intake and Output Vital Signs (last 24 hours): Temp Pulse Resp BP Pulse Ox 98 F 67 17 148/81 98 06/24/18 06:00 02/11/19 06:00 06/24/18 06:00 06/24/18 06:00 06/24/18 06:00 Intake and Output: 06/24/18 06/24/18 06:59 18:59 Intake Total 660 Balance 660 - Medications Medications: Current Medications Acetaminophen (Tylenol 325mg Tab) 650 mg PO Q4H PRN PRN Reason: Pain, moderate (4-7) Last Admin: 06/22/18 12:22 Dose: 650 mg Aspirin (Ecotrin) 81 mg PO DAILY [facility] Last Admin: 06/23/18 10:20 Dose: 81 mg Clopidogrel Bisulfate (Plavix) 75 mg PO DAILY [facility] Last Admin: 06/23/18 10:20 Dose: 75 mg Dorzolamide/Timolol (Cosopt 2%-0.5% Opht) 1 drop OU DAILY [facility] Last Admin: 06/23/18 10:21 Dose: 1 drop Glipizide (Glucotrol) 10 mg PO BID [facility] Last Admin: 06/23/18 18:05 Dose: 10 mg Home Med (Home Med) 1 unit PO HS [facility] Last Admin: 06/23/18 21:46 Dose: 1 unit Hydrochlorothiazide (Hydrodiuril) 25 mg PO DAILY [facility] Last Admin: 06/23/18 10:21 Dose: 25 mg Lactic Acid (Lac-Hydrin 12% Cream (140 G)) 10 ea TOP DAILY [facility] Last Admin: 06/23/18 18:06 Dose: 1 applic Linagliptin/Metformin Hcl [ Jentadueto 2.5 Mg- 500 Mg Tab] (Home Med) 1 tab PO BIDWM [facility] Last Admin: 06/24/18 08:16 Dose: 1 tab Polyethylene Glycol (Miralax) 17 gm PO BID [facility] Last Admin: 06/23/18 18:05 Dose: 17 gm Trimethoprim/Sulfamethoxazole (Bactrim Ds Tab) 1 tab PO BID [facility]; Protocol Valsartan (Diovan) 320 mg PO DAILY [facility] Last Admin: 06/23/18 10:20 Dose: 320 mg - Labs Labs: 06/20/18 14:30 06/20/18 14:30 Attending/Attestation - Attestation I have personally seen and examined this patient.: Yes I have fully participated in the care of the patient.: Yes I have reviewed all pertinent clinical information, including history, physical exam and plan: Yes
[2018-06-23 15:31] VITALS: O2SAT 98
[2018-06-23] MEDS: Ammonium Lactate 12% Cream (140 g) TOP SCH (18:06)
--- NOTE | 2018-06-23 19:57 | PN ---
DATE: 06/23/2018 SUBJECTIVE: An 82-year-old female with history of CVA, hypertension, CAD, non-insulin diabetes mellitus, peripheral vascular disease seen in hospital with left third toe infection. The patient was seen as an outpatient by Dr. Rice, being treated, however, developed worsening infection possible cellulitis. Patient is being hospitalized for IV antibiotics. She is doing well. Vital signs are stable. She is afebrile. X-ray did not show any osteomyelitis. She has calcification possible peripheral vascular disease, but nonobstructive. LABORATORY DATA: Her white count is normal. Laboratory data is unremarkable. Her sugar is 85. Her blood pressure is 145/65. Her chest is clear to auscultation . There is no cellulitis. There is a healing ulceration of the third toe left foot. PLAN: Continue IV antibiotics. Discussed with vascular. Possible discharge home in the morning. William Yeh MD
[2018-06-23] MEDS: METANX PO SCH (21:46)
[2018-06-24 07:59] VITALS: BP 148/81; PULSE 67; RESP 17; TEMP 98
[2018-06-24] MEDS: METFORMIN HCL PO SCH (08:16)
[2018-06-24] MEDS: LINAGLIPTIN PO SCH (08:16)
[2018-06-24] MEDS ORDERED: Tmp-Smz 800 mg-160 mg DS Tab PO SCH (10:00)
[2018-06-24] MEDS: POLYETHYLENE GLYCOL 3350 17 GM/Dose PACKET PO SCH (10:32)
[2018-06-24] MEDS: Dorzolamide 2%/Timolol 0.5% 100 DROP/10 ML BOTTLE OU SCH (10:35)
[2018-06-24] MEDS: Ammonium Lactate 12% Cream (140 g) TOP SCH (10:48)
--- NOTE | 2018-06-24 12:35 | PN ---
DATE: 06/24/2018 SUBJECTIVE: An 82-year-old female admitted to the hospital with left third toe diabetic foot infection which grew Staph aureus, sensitive to oral penicillin, non-MRSA. The patient is on Bactrim. She was seen by Dr. Rice, seen Dr. Manolo Armendariz. PHYSICAL EXAMINATION: VITAL SIGNS: Stable. CHEST: Clear to auscultation. The patient there is no active cellulitis. Most likely, the patient will be discharged home after being seen by Manolo Armendariz. William Yeh MD
== END 2018-06-24 13:16 | disposition home or self-care (01) | DRG 638 ==
LOC: ED 13:26 → ERH 17:13 → 5RNO 20:04
PROVIDERS: ADMIT Internal Medicine; ATTEND Internal Medicine
DX: E11.621 Type 2 diabetes mellitus with foot ulcer (principal); C91.10 Chronic lymphocytic leukemia of B-cell type not having achieved remission; E11.51 Type 2 diabetes mellitus with diabetic peripheral angiopathy without gangrene; I10 Essential (primary) hypertension; L97.529 Non-pressure chronic ulcer of other part of left foot with unspecified severity; H40.9 Unspecified glaucoma; Z95.0 Presence of cardiac pacemaker; Z86.73 Personal history of transient ischemic attack (TIA), and cerebral infarction without residual deficits; Z79.84 Long term (current) use of oral hypoglycemic drugs

== ENCOUNTER 2018-07-04 12:30 | Day surgery (SDC) | payer MEDICARE, BC ==
[2018-07-04 13:11] LABS: BASO # 0.04 K/mm3 (0.0-2.0); BASO % 0.4 % (0.0-3.0); EOS # 0.4 (0.0-0.7); EOS % 3.8 % (1.5-5.0); HEMOGLOBIN 14.6 g/dL (12.0-16.0); LYMPH # 2.2 (1.2-3.4); LYMPH % 23.7 % (22.0-35.0); MEAN CELL VOLUME 87.3 fl (80.0-105.0); MEAN CORPUSCULAR HEMOGLOBIN 28.6 pg (25.0-35.0); MEAN CORPUSCULAR HGB CONC 32.7 g/dl (31.0-37.0); MONO # 0.7 (0.1-0.6); MONO % 7.5 % (1.0-6.0); RBC 5.11 10^6/uL (3.5-6.1); RED CELL DISTRIBUTION WIDTH 15.2 % (11.5-14.5); WHITE BLOOD COUNT 9.3 10^3/uL (4.5-11.0)
[2018-07-04 13:20] LABS: INR 1.06; PARTIAL THROMBOPLASTIN TIME 29.7 Seconds (26.9-38.3)
[2018-07-04 13:22] LABS: CALCIUM 10.6 mg/dL (8.4-10.5)
[2018-07-04] MEDS ORDERED: Lidocaine 2% Inj (20ml) ONE (13:57)
[2018-07-04] MEDS ORDERED: Iodixanol 320 MG/ML 200 ML BOTTLE IV ONE (13:58)
[2018-07-04] MEDS ORDERED: Iodixanol 320 mg/ml 150 ml Bottle IV ONE (13:58)
[2018-07-04] MEDS ORDERED: Nitroglycerin 50mg in D5W 50 MG/250 ML BOTTLE IV ONE (13:59)
[2018-07-04] MEDS ORDERED: DiphenhydrAMINE 50 mg/ml Inj ONE (16:07)
[2018-07-04] MEDS ORDERED: Midazolam 2 MG/2 ML VIAL ONE (16:11)
[2018-07-04] MEDS ORDERED: Iodixanol 320 MG/ML 100 ML BOTTLE IV ONE (17:20)
[2018-07-04] MEDS ORDERED: Sodium Chloride 0.45% 1,000 ML IV SCH (18:00)
[2018-07-04] MEDS ORDERED: LINAGLIPTIN PO SCH (18:00)
[2018-07-04] MEDS ORDERED: [UNRECOGNIZED DRUG - OTHER] PO SCH (18:00)
[2018-07-04] MEDS ORDERED: METFORMIN HCL PO SCH (18:00)
--- NOTE | 2018-07-04 19:06 | VASCULAR ---
Date of service: 07/04/2018 PROCEDURE: 1. Abdominal aortogram and bilateral lower extremity runoff with left selective views. 2. Distal left SFA and above knee popliteal artery jet stream atherectomy and drug-eluting balloon angioplasty 3. Left peroneal artery angioplasty 4. Left common iliac artery angioplasty and stent placement HISTORY: Severe peripheral vascular disease. Ischemic ulceration left 4th toe with severe rest pain PHYSICIAN(S): Manolo Armendariz M.D. TECHNIQUE: The relative risks and indications of the procedure were explained to the patient's daughter and consent obtained. The patient was hydrated prior to the procedure and the appropriate labs drawn. The patient was placed supine on the arteriogram table and the right groin prepped and draped in the usual sterile fashion. Conscious sedation and monitoring were provided throughout the procedure by a nurse. Via a right common femoral artery approach, a 5 Lithuanian sheath was placed in the right groin. Through the sheath and over a guidewire, a 5 Lithuanian flush catheter was placed in the abdominal aorta at the level of the renal arteries and a PA DSA abdominal aortogram performed. The catheter was pulled down to the aortic bifurcation and bilateral oblique DSA pelvic arteriograms performed. Overlapping bilateral lower extremity DSA arteriograms were obtained from the inguinal ligaments to the ankles. A 0.035 angled Glidewire was advanced over the bifurcation and placed in the mid left SFA. A 7 Lithuanian 65 cm destination sheath was placed in the mid left SFA. Heparin 5000 units IV and nitroglycerin in 250 mcg aliquots were given. The multifocal disease in the distal left SFA, popliteal, and peroneal arteries were crossed with a 5 Lithuanian catheter and angled Glidewire. Exchange is made for a 0.014 support wire. Jet stream atherectomy of the distal left SFA and left popliteal artery above the knee was performed with a 2.4/3.4 catheter. Three passes were performed. An improved but suboptimal result was obtained. The left popliteal artery was dilated with a 5 mm x 150 mm drug-eluting balloon. The distal left SFA was dilated with a 6 mm x 120 drug-eluting balloon. A good angiographic result was obtained and no stent was required. The left proximal to mid peroneal artery was dilated with a 2.5 x 200 balloon. A good angiographic result was obtained. Finally a 10 mm x 6 cm self expanding stent was deployed in the proximal left common iliac artery. This was dilated with a 9 mm balloon. Completion angiograms were obtained. The sheath was removed hemostasis obtained. The patient tolerated the procedure well. FINDINGS: Diffuse vascular calcification is noted. There are single renal arteries bilaterally which are widely patent and normal in appearance. The nephrograms are symmetric in appearance. The infrarenal abdominal aorta is smoothly calcified and patent.. The aortic bifurcation is patent.. There an eccentric severe stenosis of the proximal left common iliac artery. Mild disease of the right common iliac artery is noted. There is a high-grade stenosis of the left internal iliac artery origin. The right internal iliac artery is patent. External iliac arteries are patent bilaterally Right lower extremity: The right common femoral artery is patent. The right profunda femoral artery is patent. The right superficial femoral artery is diffusely diseased and calcified with multiple mild to moderate stenoses. There is severe disease throughout the right popliteal artery. There is severe right trifurcation and tibial occlusive disease. Two vessel runoff is seen with calcified diseased right peroneal and anterior tibial arteries. The right posterior tibial artery is occluded.. Left lower extremity: Left common femoral artery is patent. The left profunda femoral artery is patent. The left superficial femoral artery is diffusely diseased and calcified. There is a polypoid severe stenosis of the left SFA in the adductor canal. There are multifocal stenoses in the terminal left SFA and popliteal arteries. Once again there is severe left trifurcation and tibial occlusive disease. There single vessel runoff via left peroneal artery with multiple stenoses. The left anterior tibial and posterior tibial arteries are occluded. IMPRESSION: 1.Successful distal left SFA and popliteal artery jet stream atherectomy and drug-eluting balloon angioplasty 2. Successful proximal to mid left peroneal artery angioplasty 3. Left common iliac artery angioplasty and stent placement. 4. 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
[2018-07-05 07:03] VITALS: RESP 18; TEMP 98.4; O2SAT 96
[2018-07-05 07:14] LABS: MEAN CELL VOLUME 87.2 fl (80.0-105.0); MEAN CORPUSCULAR HEMOGLOBIN 27.5 pg (25.0-35.0); MEAN CORPUSCULAR HGB CONC 31.5 g/dl (31.0-37.0); MEAN PLATELET VOLUME 10.9 fl (7.0-11.0); RBC 4.37 10^6/uL (3.5-6.1); RED CELL DISTRIBUTION WIDTH 15.1 % (11.5-14.5); WHITE BLOOD COUNT 8.4 10^3/uL (4.5-11.0)
[2018-07-05 07:35] LABS: CALCIUM 9.5 mg/dL (8.4-10.5)
[2018-07-05 09:57] VITALS: BP 109/53; PULSE 64
--- NOTE | 2018-07-05 13:01 | CP.PCM.HP ---
<Tyree Camara - Last Filed: 07/05/18 12:56> History of Present Illness - History of Present Illness History of Present Illness: PGY-2 H&P for Dr Roca Mrs Bay is a 82 year old female with a PMhx of severe peripheral disease, ischemic ulceration of left 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 She was seen after the procedure and appeared to be doing well. She denied any pain or discomfort and denied any urinary, GI issues, fever, chills, nausea. She was again seen with family at bedside - family stated she appeared to be doing well. An mild ecchymosis was seen at surgical entry site near right flank. PMHx: severe peripheral disease, ischemic ulceration of left 4th digit toe, CVA with residual right-sided weakness, HTN, NIDDM, CLL, anemia PSHx Hysterectomy, tonsillectomy, carpal tunnel surgery, cataracts FamHx: Mother - heart disease SocialHx: Remote history of tobacco use. No EtOH. Lives with daughter. 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 ALLERGIES: No antibiotic allergies Present on Admission - Present on Admission Any Indicators Present on Admission: No Review of Systems - Review of Systems All systems: reviewed and no additional remarkable complaints except (as stated in HPI) Past Patient History - Infectious Disease Hx of Infectious Diseases: None - Tetanus Immunizations Tetanus Immunization: Up to Date - Past Medical History & Family History Past Medical History?: Yes - Past Social History Smoking Status: Never Smoked - CARDIAC Hx Pacemaker: Yes - PULMONARY Hx Asthma: No (family denies) - NEUROLOGICAL Hx Paralysis: No - HEENT Hx Cataracts: Yes (left eye) Hx Glaucoma: Yes (left eye had sx. right eye needs sx) - RENAL Hx Chronic Kidney Disease: No - ENDOCRINE/METABOLIC Hx Diabetes Mellitus Type 2: Yes - HEMATOLOGICAL/ONCOLOGICAL Hx Blood Transfusions: No - INTEGUMENTARY Other/Comment: shingle - MUSCULOSKELETAL/RHEUMATOLOGICAL Hx Musculoskeletal Disorders: Yes (LUMBAR RADICULOPATHY,ROTATOR CUFF DAMAGE,) - GASTROINTESTINAL Hx Gastroesophageal Reflux: Yes - GENITOURINARY/GYNECOLOGICAL Hx Genitourinary Disorders: No Hx Reproductive Disorders: No - PSYCHIATRIC Hx Emotional Abuse: No Hx Physical Abuse: No Hx Substance Use: No - SURGICAL HISTORY Hx Surgeries: Yes (LEFT EYE SX, CARD.CATH WITH STENT X 1,) - ANESTHESIA Hx Anesthesia Reactions: No Hx Malignant Hyperthermia: No Meds Allergies/Adverse Reactions: Allergies Allergy/AdvReac Type Severity Reaction Status Date / Time iodine Allergy ANAPHYLAXIS Verified 06/20/18 20:40 zolpidem tartrate AdvReac DIZZINESS Verified 06/20/18 20:40 [From Ambien] Physical Exam - Constitutional Appears: Well, Non-toxic, No Acute Distress - Head Exam Head Exam: ATRAUMATIC, NORMAL INSPECTION - Eye Exam Eye Exam: EOMI, Normal appearance, PERRL. absent: Scleral icterus - ENT Exam ENT Exam: Mucous Membranes Moist - Neck Exam Neck exam: Positive for: Normal Inspection - Respiratory Exam Respiratory Exam: Clear to Auscultation Bilateral, NORMAL BREATHING PATTERN. absent: Rales, Rhonchi, Wheezes - Cardiovascular Exam Cardiovascular Exam: REGULAR RHYTHM, +S1, +S2. absent: Tachycardia, Gallop, JVD, Systolic Murmur - GI/Abdominal Exam GI & Abdominal Exam: Normal Bowel Sounds, Soft. absent: Distended, Firm, Guarding, Hernia, Tenderness - Neurological Exam Neurological exam: Alert, Oriented x3 - Psychiatric Exam Psychiatric exam: Normal Affect, Normal Mood - Skin Skin Exam: Intact, Warm Additional comments: mild ecchymosis at right flank near catheter surgical site that appears to be a small hematoma - no tenderness Results - Vital Signs Recent Vital Signs: Last Vital Signs Temp 98.4 F 07/05/18 06:00 Pulse 64 07/05/18 09:56 Resp 18 07/05/18 09:00 BP 109/53 L 07/05/18 09:56 Pulse Ox 96 07/05/18 09:00 - Labs Result Diagrams: 07/05/18 06:50 07/05/18 06:50 Labs: Laboratory Results - last 24 hr 07/04/18 07/04/18 07/04/18 13:00 13:00 13:00 WBC 9.3 RBC 5.11 Hgb 14.6 Hct 44.6 MCV 87.3 MCH 28.6 MCHC 32.7 RDW 15.2 H Plt Count 252 MPV 11.0 Neut % (Auto) 64.6 Lymph % (Auto) 23.7 Ida % (Auto) 7.5 H Eos % (Auto) 3.8 Baso % (Auto) 0.4 Lymph # (Auto) 2.2 Ida # (Auto) 0.7 H Eos # (Auto) 0.4 Baso # (Auto) 0.04 Absolute Neuts (auto) 5.99 PT 12.0 INR 1.06 APTT 29.7 Sodium 138 Potassium 4.3 Chloride 101 Carbon Dioxide 27 Anion Gap 15 BUN 29 H Creatinine 1.1 Est GFR ( Amer) 57 Est GFR (Non-Af Amer) 47 POC Glucose (mg/dL) Random Glucose 146 H Calcium 10.6 H 07/04/18 07/04/18 07/05/18 18:06 21:38 06:50 WBC 8.4 RBC 4.37 Hgb 12.0 D Hct 38.1 MCV 87.2 MCH 27.5 MCHC 31.5 RDW 15.1 H Plt Count 201 MPV 10.9 Neut % (Auto) Lymph % (Auto) Ida % (Auto) Eos % (Auto) Baso % (Auto) Lymph # (Auto) Ida # (Auto) Eos # (Auto) Baso # (Auto) Absolute Neuts (auto) PT INR APTT Sodium Potassium Chloride Carbon Dioxide Anion Gap BUN Creatinine Est GFR ( Amer) Est GFR (Non-Af Amer) POC Glucose (mg/dL) 100 196 H Random Glucose Calcium 07/05/18 07/05/18 06:50 07:26 WBC RBC Hgb Hct MCV MCH MCHC RDW Plt Count MPV Neut % (Auto) Lymph % (Auto) Ida % (Auto) Eos % (Auto) Baso % (Auto) Lymph # (Auto) Ida # (Auto) Eos # (Auto) Baso # (Auto) Absolute Neuts (auto) PT INR APTT Sodium 139 Potassium 5.0 Chloride 105 Carbon Dioxide 28 Anion Gap 11 BUN 24 H Creatinine 1.1 Est GFR ( Amer) 57 Est GFR (Non-Af Amer) 47 POC Glucose (mg/dL) 132 H Random Glucose 131 H Calcium 9.5 Assessment & Plan - Assessment and Plan (Free Text) Plan: Mrs Bay is a 82 year old female with a PMhx of severe peripheral disease, ischemic ulceration of left 4th digit toe, CVA with residual right-sided weakness, HTN, NIDDM, CLL, anemia who presented for a planned lower extremity vascular procedure with Dr Manolo Armendariz: #Severe Peripheral Vascular Disease #NIDDM2 #CVA with residual right sided weakness #HTN Mrs Bay had a successful vascular interventional procedure with Dr Manolo Armendariz. She had a left SFA and popliteal artery atherectomy and drug-eluting angioplasty, a left peroneal artery antioplasty, a left common iliac artery angioplasty and stent placement (see full operative report from Dr Armendariz). 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 She was continued on her normal home medications to treat her chronic conditions including aspiring 81mg and plavix 75mg for her CVA, atenelol for her HTN, juentadueta and glipizide for her diabetes and her pain was controlled with tylenol. She had minimal pain after procedure. Case discussed with Dr Roca <Wilmar Roca S - Last Filed: 07/05/18 17:09> Results - Vital Signs Recent Vital Signs: Last Vital Signs Temp 98.4 F 07/05/18 06:00 Pulse 64 07/05/18 09:56 Resp 18 07/05/18 09:00 BP 109/53 L 07/05/18 09:56 Pulse Ox 96 07/05/18 09:00 - Labs Result Diagrams: 07/05/18 06:50 07/05/18 06:50 Labs: Laboratory Results - last 24 hr 07/04/18 07/04/18 07/05/18 18:06 21:38 06:50 WBC 8.4 RBC 4.37 Hgb 12.0 D Hct 38.1 MCV 87.2 MCH 27.5 MCHC 31.5 RDW 15.1 H Plt Count 201 MPV 10.9 Sodium Potassium Chloride Carbon Dioxide Anion Gap BUN Creatinine Est GFR ( Amer) Est GFR (Non-Af Amer) POC Glucose (mg/dL) 100 196 H Random Glucose Calcium 07/05/18 07/05/18 07/05/18 06:50 07:26 11:40 WBC RBC Hgb Hct MCV MCH MCHC RDW Plt Count MPV Sodium 139 Potassium 5.0 Chloride 105 Carbon Dioxide 28 Anion Gap 11 BUN 24 H Creatinine 1.1 Est GFR ( Amer) 57 Est GFR (Non-Af Amer) 47 POC Glucose (mg/dL) 132 H 243 H Random Glucose 131 H Calcium 9.5 Assessment & Plan - Assessment and Plan (Free Text) Plan: Pt seen and examined by me. I have reviewed the note of the medical translator and I agree with it. I have discussed the assessment and plan with the resident. I have reviewed the medications and the last labs. Pt with L PAD and had a angioplasty and stent placed. She is on Plavix and ASA. She has improvement of her symptoms. I saw the pt today and spoke to the family at bedside. She is on her DM-2 medications. Reviewed the IR note. She will go home today and continue her medications and f/u with Dr Yeh.
--- NOTE | 2018-07-05 13:10 | CP.PCM.DIS ---
<Tyree Camara - Last Filed: 07/05/18 13:08> Provider - Provider Attending physician: Manolo Armendariz MD Primary care physician: William Yeh MD Time Spent in preparation of Discharge (in minutes): 30 Diagnosis - Discharge Diagnosis (1) Severe peripheral arterial disease Status: Chronic Priority: High (2) History of CVA (cerebrovascular accident) Status: Chronic Priority: Medium (3) Diabetes mellitus Status: Chronic Priority: Medium Hospital Course - Lab Results Lab Results: Most Recent Lab Values WBC 8.4 10^3/uL (4.5-11.0) 07/05/18 06:50 RBC 4.37 10^6/uL (3.5-6.1) 07/05/18 06:50 Hgb 12.0 g/dL (12.0-16.0) D 07/05/18 06:50 Hct 38.1 % (36.0-48.0) 07/05/18 06:50 MCV 87.2 fl (80.0-105.0) 07/05/18 06:50 MCH 27.5 pg (25.0-35.0) 07/05/18 06:50 MCHC 31.5 g/dl (31.0-37.0) 07/05/18 06:50 RDW 15.1 % (11.5-14.5) H 07/05/18 06:50 Plt Count 201 10^3/uL (120.0-450.0) 07/05/18 06:50 MPV 10.9 fl (7.0-11.0) 07/05/18 06:50 Neut % (Auto) 64.6 % (50.0-68.0) 07/04/18 13:00 Lymph % (Auto) 23.7 % (22.0-35.0) 07/04/18 13:00 Andrews % (Auto) 7.5 % (1.0-6.0) H 07/04/18 13:00 Eos % (Auto) 3.8 % (1.5-5.0) 07/04/18 13:00 Baso % (Auto) 0.4 % (0.0-3.0) 07/04/18 13:00 Lymph # (Auto) 2.2 (1.2-3.4) 07/04/18 13:00 Andrews # (Auto) 0.7 (0.1-0.6) H 07/04/18 13:00 Eos # (Auto) 0.4 (0.0-0.7) 07/04/18 13:00 Baso # (Auto) 0.04 K/mm3 (0.0-2.0) 07/04/18 13:00 Absolute Neuts (auto) 5.99 (1.4-6.5) 07/04/18 13:00 PT 12.0 SECONDS (9.4-12.5) 07/04/18 13:00 INR 1.06 07/04/18 13:00 APTT 29.7 Seconds (26.9-38.3) 07/04/18 13:00 Sodium 139 mmol/L (132-148) 07/05/18 06:50 Potassium 5.0 mmol/L (3.6-5.0) 07/05/18 06:50 Chloride 105 mmol/L (98-107) 07/05/18 06:50 Carbon Dioxide 28 mmol/L (21-33) 07/05/18 06:50 Anion Gap 11 (10-20) 07/05/18 06:50 BUN 24 mg/dL (7-21) H 07/05/18 06:50 Creatinine 1.1 mg/dl (0.7-1.2) 07/05/18 06:50 Est GFR ( Amer) 57 07/05/18 06:50 Est GFR (Non-Af Amer) 47 07/05/18 06:50 POC Glucose (mg/dL) 132 mg/dL (65-110) H 07/05/18 07:26 Random Glucose 131 mg/dL (70-110) H 07/05/18 06:50 Calcium 9.5 mg/dL (8.4-10.5) 07/05/18 06:50 - Hospital Course Hospital Course: Mrs Bya is a 82 year old female with a PMhx of severe peripheral disease, ischemic ulceration of left 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 She was seen after the procedure and appeared to be doing well. She denied any pain or discomfort and denied any urinary, GI issues, fever, chills, nausea. She was again seen with family at bed side - family stated she appeared to be doing well. An mild ecchymosis was seen at surgical entry site near right flank. PMHx: severe peripheral disease, ischemic ulceration of left 4th digit toe, CVA with residual right-sided weakness, HTN, NIDDM, CLL, anemia PSHx Hysterectomy, tonsillectomy, carpal tunnel surgery, cataracts FamHx: Mother - heart disease SocialHx: Remote history of tobacco use. No EtOH. Lives with daughter. 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 ALLERGIES: No antibiotic allergies HOSPITAL COURSE: Mrs Bay had a successful vascular interventional procedure with Dr Manolo Armendariz. She had a left SFA and popliteal artery atherectomy and drug-eluting angioplasty, a left peroneal artery antioplasty, a left common iliac artery angioplasty and stent placement (see full operative report from Dr Armendariz). 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 She was continued on her normal home medications to treat her chronic conditions including aspiring 81mg and plavix 75mg for her CVA, atenelol for her HTN, juentadueta and glipizide for her diabetes and her pain was controlled with tylenol. She had minimal pain after procedure. Discharge Exam - Head Exam Head Exam: ATRAUMATIC, NORMAL INSPECTION - Additional Findings Additional findings: - Constitutional Appears: Well, Non-toxic, No Acute Distress - Head Exam Head Exam: ATRAUMATIC, NORMAL INSPECTION - Eye Exam Eye Exam: EOMI, Normal appearance, PERRL. absent: Scleral icterus - ENT Exam ENT Exam: Mucous Membranes Moist - Neck Exam Neck exam: Positive for: Normal Inspection - Respiratory Exam Respiratory Exam: Clear to Auscultation Bilateral, NORMAL BREATHING PATTERN. absent: Rales, Rhonchi, Wheezes - Cardiovascular Exam Cardiovascular Exam: REGULAR RHYTHM, +S1, +S2. absent: Tachycardia, Gallop, JVD, Systolic Murmur - GI/Abdominal Exam GI & Abdominal Exam: Normal Bowel Sounds, Soft. absent: Distended, Firm, Guarding, Hernia, Tenderness - Neurological Exam Neurological exam: Alert, Oriented x3 - Psychiatric Exam Psychiatric exam: Normal Affect, Normal Mood - Skin Skin Exam: Intact, Warm Additional comments: mild ecchymosis at right flank near catheter surgical site that appears to be a small hematoma - no tenderness Discharge Plan - Follow Up Plan Condition: GOOD Disposition: HOME/ ROUTINE Instructions: Femoropopliteal Bypass Surgery, Heart Healthy Diet, Diabetes Exchange Diet, Peripheral Vascular Stenting Additional Instructions: Please follow-up with your primary medical doctor, Dr Yeh, within 7 days. Please follow-up with your surgical services asst for continued foot care within 7 days. Please continue your plavix and aspirin. Please continue all your other normal home medications as usual. If symptoms return, please go to your nearest emergency department. If bleeding occurs from right lower abdominal area; go to the nearest emergency room. Diet: Heart Healthy; diabetic exchange menu Patient states she is up to date with regards to the flu vaccine and the pneumococcal vaccines. Referrals: Too Rice DPM [Staff Provider] - William Yeh MD [Primary Care Provider] - <Wilmar Roca S - Last Filed: 07/05/18 17:03> Provider - Provider Attending physician: Manolo Armendariz MD Primary care physician: William Yeh MD Hospital Course - Lab Results Lab Results: Most Recent Lab Values WBC 8.4 10^3/uL (4.5-11.0) 07/05/18 06:50 RBC 4.37 10^6/uL (3.5-6.1) 07/05/18 06:50 Hgb 12.0 g/dL (12.0-16.0) D 07/05/18 06:50 Hct 38.1 % (36.0-48.0) 07/05/18 06:50 MCV 87.2 fl (80.0-105.0) 07/05/18 06:50 MCH 27.5 pg (25.0-35.0) 07/05/18 06:50 MCHC 31.5 g/dl (31.0-37.0) 07/05/18 06:50 RDW 15.1 % (11.5-14.5) H 07/05/18 06:50 Plt Count 201 10^3/uL (120.0-450.0) 07/05/18 06:50 MPV 10.9 fl (7.0-11.0) 07/05/18 06:50 Neut % (Auto) 64.6 % (50.0-68.0) 07/04/18 13:00 Lymph % (Auto) 23.7 % (22.0-35.0) 07/04/18 13:00 Andrews % (Auto) 7.5 % (1.0-6.0) H 07/04/18 13:00 Eos % (Auto) 3.8 % (1.5-5.0) 07/04/18 13:00 Baso % (Auto) 0.4 % (0.0-3.0) 07/04/18 13:00 Lymph # (Auto) 2.2 (1.2-3.4) 07/04/18 13:00 Andrews # (Auto) 0.7 (0.1-0.6) H 07/04/18 13:00 Eos # (Auto) 0.4 (0.0-0.7) 07/04/18 13:00 Baso # (Auto) 0.04 K/mm3 (0.0-2.0) 07/04/18 13:00 Absolute Neuts (auto) 5.99 (1.4-6.5) 07/04/18 13:00 PT 12.0 SECONDS (9.4-12.5) 07/04/18 13:00 INR 1.06 07/04/18 13:00 APTT 29.7 Seconds (26.9-38.3) 07/04/18 13:00 Sodium 139 mmol/L (132-148) 07/05/18 06:50 Potassium 5.0 mmol/L (3.6-5.0) 07/05/18 06:50 Chloride 105 mmol/L (98-107) 07/05/18 06:50 Carbon Dioxide 28 mmol/L (21-33) 07/05/18 06:50 Anion Gap 11 (10-20) 07/05/18 06:50 BUN 24 mg/dL (7-21) H 07/05/18 06:50 Creatinine 1.1 mg/dl (0.7-1.2) 07/05/18 06:50 Est GFR ( Amer) 57 07/05/18 06:50 Est GFR (Non-Af Amer) 47 07/05/18 06:50 POC Glucose (mg/dL) 243 mg/dL (65-110) H 07/05/18 11:40 Random Glucose 131 mg/dL (70-110) H 07/05/18 06:50 Calcium 9.5 mg/dL (8.4-10.5) 07/05/18 06:50 - Hospital Course Hospital Course: Pt seen and examined by me. I have reviewed the note of the medical service representative and I agree with it. I have discussed the assessment and plan with the resident. I have reviewed the medications and the last labs. Please see H and P note.
== END 2018-07-05 13:50 | disposition home or self-care (01) ==
LOC: SDSVAS 12:30 → 2RSO 19:15 → SDSVAS 07-05 13:50
PROVIDERS: ATTEND Radiology Vascular & Interventional Radiology
DX: E11.51 Type 2 diabetes mellitus with diabetic peripheral angiopathy without gangrene (principal); E11.621 Type 2 diabetes mellitus with foot ulcer; L97.529 Non-pressure chronic ulcer of other part of left foot with unspecified severity; I10 Essential (primary) hypertension; I69.351 Hemiplegia and hemiparesis following cerebral infarction affecting right dominant side; D64.9 Anemia, unspecified; Z79.02 Long term (current) use of antithrombotics/antiplatelets; Z79.82 Long term (current) use of aspirin; Z88.8 Allergy status to other drugs, medicaments and biological substances; Z95.0 Presence of cardiac pacemaker; Z82.49 Family history of ischemic heart disease and other diseases of the circulatory system
CPT/HCPCS: 36415 ×2; 37221; 37225; 37228; 75625; 75716; 80048 ×2; 82948 ×2; 85025; 85027; 85610; 85730; 99152; 99153; C1725 ×7; C1760; C1769 ×4; C1876; C1887 ×2; C1894; J1200; J1644 ×2; J2250; J2405; J3010; J7030; Q9966; Q9967 ×2

== ENCOUNTER 2018-07-20 16:32 | Inpatient (IN) | payer MEDICARE, BC ==
[2018-07-20 16:38] VITALS: BMI 22.8
--- NOTE | 2018-07-20 17:25 | ED PDOC ---
Arrival/HPI - General Chief Complaint: Lower Extremity Problem/Injury Historian: Patient, Family (daughter (who translates for patient)) - History of Present Illness Narrative History of Present Illness (Text): 07/20/18 17:35 A 83 year old female, whose past medical history includes diabetes and pacemaker, presents to the emergency department complaining of 4th digit left foot pain for 3 days, worse day. Translated by daughter. Patient describes pain as a pulsing sensation. Patient's daughter reports she noticed swelling to 4th digit today, and is uncertain if it was swollen before. States patient complains pain is worse when she lays flat. On 07/04/2018, patient was admitted for 4th digit left foot ulcer, and toe was evaluated by podiatry and treated by Dr. Manolo Armendariz. Also, patient had an angiogram on left leg performed outpatient, and was admitted overnight due to angiogram results. Today, patient notes pain is worse than usual and daughter became concerned. Daughter contacted Dr. Yeh's nurse practitioner, who directed for patient to be brought to the ER for evaluation. Pain has been "throbbing" for past three days. Pain is worse when laying down and not as severe when she is up and ambulating. States pain is similar to past admission. Denies calf pain or thigh pain. Daughter states she noticed swelling to the foot. PMD: Ruba 07/20/18 17:41 Past Medical History - Provider Review Nursing Documentation Reviewed: Yes - Infectious Disease Hx of Infectious Diseases: None - Tetanus Immunization Tetanus Immunization: Up to Date - Reproductive Menopause: Yes - Cardiac Hx Pacemaker: Yes - Pulmonary Hx Asthma: No (family denies) - Neurological Hx Paralysis: No - HEENT Hx Cataracts: Yes (left eye) Hx Glaucoma: Yes (left eye had sx. right eye needs sx) - Renal Hx Renal Disorder: No - Endocrine/Metabolic Hx Diabetes Mellitus Type 2: Yes - Hematological/Oncological Hx Blood Transfusions: No - Integumentary Other/Comment: shingle - Musculoskeletal/Rheumatological Hx Musculoskeletal Disorders: Yes (LUMBAR RADICULOPATHY,ROTATOR CUFF DAMAGE,) Other/Comment: ulcer to L foot - Gastrointestinal Hx Gastroesophageal Reflux: Yes - Genitourinary/Gynecological Hx Genitourinary Disorders: No Hx Reproductive Disorders: No - Psychiatric Hx Emotional Abuse: No Hx Physical Abuse: No Hx Substance Use: No - Surgical History Hx Cardiac Catheterization: Yes (stent x1) - Anesthesia Hx Anesthesia Reactions: No Hx Malignant Hyperthermia: No - Suicidal Assessment Feels Threatened In Home Enviroment: No Family/Social History - Physician Review Nursing Documentation Reviewed: Yes Family/Social History: Unknown Family HX Smoking Status: Never Smoked Hx Alcohol Use: No Hx Substance Use: No Hx Substance Use Treatment: No Allergies/Home Meds Allergies/Adverse Reactions: Allergies iodine Allergy (Verified 06/20/18 20:40) ANAPHYLAXIS zolpidem tartrate [From Ambien] Adverse Reaction (Verified 06/20/18 20:40) DIZZINESS Home Medications: Home Meds Medication Instructions Recorded Confirmed Glipizide 10 mg PO BID 08/20/14 07/20/18 Linagliptin/Metformin HCl 2.5 - 500 mg PO BID 12/13/15 07/20/18 [Jentadueto 2.5 mg-500 mg Tab] Dorzolamide 2%/Timolol 0.5% 1 uci BOTHEYES DAILY 02/12/17 07/20/18 [Cosopt 2%-0.5% Opht] Aspirin [Adult Aspirin] 81 mg PO DAILY 02/25/18 07/20/18 Clopidogrel [Plavix] 75 mg PO DAILY 02/25/18 07/20/18 Atenolol [Tenormin] 25 mg PO DAILY 06/21/18 07/20/18 Losartan/Hydrochlorothiazide 1 tab PO DAILY 06/21/18 07/20/18 [Losartan-Hctz 100-25 mg Tab] Glipizide [Glipizide ER] 10 mg PO BID 07/20/18 07/20/18 Review of Systems - Review of Systems Systems not reviewed;Unavailable: Language Barrier (family translates) Constitutional: absent: Fevers Eyes: absent: Vision Changes ENT: absent: Hearing Changes Respiratory: absent: SOB, Cough Cardiovascular: absent: Chest Pain Gastrointestinal: absent: Abdominal Pain Genitourinary Female: absent: Frequency Musculoskeletal: Other (pain to left foot and fourth toe) Skin: Ulcer Neurological: absent: Headache, Focal Weakness Endocrine: absent: Polyuria Physical Exam - Physical Exam Narrative Physical Exam (Text): Head: Atraumatic. Normocephalic. Eyes: PERRL. EOMI. Conjunctivae are not pale. ENT: Mucous membranes are moist and intact. No stridor. No drooling. Neck: Supple. Full ROM. No JVD. No lymphadenopathy. No meningeal signs. Cardiovascular: Regular rate. Regular rhythm. Systolic murmur. Pulmonary/Chest: No evidence of respiratory distress. Clear to auscultation bilaterally. No wheezing, rales or rhonchi. Abdominal: Soft and non-distended. There is no tenderness. No rebound, guarding, or rigidity. No organomegaly. Good bowel sounds. Back: No CVA tenderness. Extremities: Left foot with edema. Ulcer noted between fourth and fifth digits with erythema, no active drainage. DP and PT pulses not palpable although foot is warm. No calf pain or edema. No thigh pain or edema. Skin: Ulcer and erythema noted to left foot as noted above. Neurological: No focal motor or sensory deficits. Psychiatric: In pain, but typical affect and interaction as per family. Vital Signs Reviewed: Yes Vital Signs Temp Pulse Resp BP Pulse Ox 07/20/18 16:32 98.8 F 83 18 141/75 99 Temperature: Afebrile Pulse: Regular Appearance: Positive for: Uncomfortable Pain Distress: Moderate Mental Status: Positive for: Alert and Oriented X 3 Medical Decision Making ED Course and Treatment: 07/20/18 17:38 Impression: 83 year old female with left foot 4th digit pain/swelling. Plan: -- EKG -- Venous Blood Gas -- Labs -- Chest X-Ray -- Left Foot X-Ray -- Morphine -- IV Fluids -- Blood Culture -- Urine Culture -- Fingerstick -- Urinalysis -- Reassess and disposition Progress Notes: Patient's past admission reviewed. History reviewed with patient and family who translates. Pain has developed gradually over the past three days. On exam, she has localized pain to fourth digit of left foot with no calf pain or edema noted. After review of her past mediations, iv fluids and iv morphine ordered. I consulted Dr. Manolo Armendariz and discussed history and exam and recent history with database consultant, will continue Plavix, iv hydration, pain medication, and anti biotics. VERONICA will be ordered. Plan will be to admit patient for serial exams, consultations, iv antibiotics and fluids. Patient took her Plavix already today. Patient denies any fevers or chills. Not hypotensive or tachycardic. Not septic at this time. Case discussed with Dr. Vásquez, covering for Dr. Yeh. - Scribe Statement The provider has reviewed the documentation as recorded by the Leodan Wilson Provider Scribe Attestation: All medical record entries made by the Leodan were at my direction and personally dictated by me. I have reviewed the chart and agree that the record accurately reflects my personal performance of the history, physical exam, medical decision making, and the department course for this patient. I have also personally directed, reviewed, and agree with the discharge instructions and disposition. Disposition/Present on Arrival - Present on Arrival Any Indicators Present on Arrival: No History of DVT/PE: No History of Uncontrolled Diabetes: No Urinary Catheter: No History of Decub. Ulcer: No History Surgical Site Infection Following: None - Disposition Have Diagnosis and Disposition been Completed?: Yes Diagnosis: Cellulitis, Toe pain, Peripheral vascular disease Disposition: HOSPITALIZED Disposition Time: 18:30 Patient Plan: Admission Patient Problems: Current Active Problems Problem Status Onset Cellulitis Acute Peripheral vascular disease Acute Toe pain Acute Condition: FAIR
[2018-07-20] MEDS ORDERED: Morphine 2 mg/ml ISec IVP STA (17:34)
[2018-07-20] MEDS ORDERED: Piperacillin/Tazobact 3.375 gm 100 ML IVPB STA (17:39)
[2018-07-20] MEDS: Sodium Chloride 0.9% 1,000 ML IV SCH (17:51)
[2018-07-20 18:02] LABS: BASO # 0.04 K/mm3 (0.0-2.0); BASO % 0.4 % (0.0-3.0); EOS # 0.2 (0.0-0.7); HEMOGLOBIN 13.2 g/dL (12.0-16.0); LYMPH # 1.6 (1.2-3.4); MEAN CELL VOLUME 88.5 fl (80.0-105.0); MEAN CORPUSCULAR HGB CONC 31.7 g/dl (31.0-37.0); MONO # 1.2 (0.1-0.6); MONO % 11.7 % (1.0-6.0); RBC 4.71 10^6/uL (3.5-6.1); RED CELL DISTRIBUTION WIDTH 15.3 % (11.5-14.5); WHITE BLOOD COUNT 10.3 10^3/uL (4.5-11.0)
[2018-07-20 18:05] LABS: VENOUS BLOOD GAS BASE EXCESS 0.3 mmol/L (0.0-2.0); VENOUS BLOOD GAS PO2 30 mm/Hg (30-55); VENOUS BLOOD PH 7.35 (7.32-7.43)
[2018-07-20 18:09] LABS: INR 1.1; PARTIAL THROMBOPLASTIN TIME 32.9 Seconds (26.9-38.3); PROTHROMBIN TIME 12.2 SECONDS (9.4-12.5)
[2018-07-20 19:10] LABS: ALB/GLOB RATIO 1.3 (1.1-1.8); ALBUMIN 4.6 g/dL (3.0-4.8); CALCIUM 10.2 mg/dL (8.4-10.5)
--- NOTE | 2018-07-20 21:36 | US ---
PROCEDURE: Lower extremity VERONICA exam HISTORY: Peripheral vascular disease with pain in left 5th toe ischemia. Recent left lower extremity endovascular intervention. PHYSICIAN(S): Manolo Armendariz MD. FINDINGS: The exam is limited by calcified, noncompressible vessels at all levels. The resting ABIs are not obtainable The brachial systolic pressures are symmetric. The left calf and distal waveforms are improved compared to the pre intervention test. The ankle and metatarsal waveforms are moderately blunted bilaterally but pulsatile. This is consistent with bilateral tibial disease IMPRESSION: 1. Bilateral tibial disease. 2. The left calf and distal waveforms are improved when compared to the pre intervention study.
[2018-07-20 21:54] LABS: VENOUS BLOOD GAS PO2 28 mm/Hg (30-55)
[2018-07-20] MEDS ORDERED: Pneumococcal 23-Valent Vaccine IM ONE (22:39)
[2018-07-20] MEDS ORDERED: Morphine 2 mg/ml ISec IVP ONE (22:50)
--- NOTE | 2018-07-20 22:52 | CP.PCM.PCO ---
Physician Communication Note - Physician Communication Note Physician Communication Note: pt complained of foot pain, morphin given
[2018-07-21] MEDS ORDERED: Morphine 2 mg/ml ISec IVP ONE (01:06)
[2018-07-21 05:59] LABS: URINE BILIRUBIN NEGATIVE (NEGATIVE); URINE BLOOD NEGATIVE (NEGATIVE); URINE GLUCOSE (UA) NEGATIVE (NEGATIVE); URINE LEUKOCYTE ESTERASE SMALL Leu/uL (NEGATIVE); URINE PROTEIN NEGATIVE mg/dL (<30 mg/dL); URINE UROBILINOGEN 0.2 E.U./dL (<1 E.U./dL)
[2018-07-21 06:03] LABS: URINE APPEARANCE SL CLOUDY (CLEAR); URINE COLOR YELLOW (YELLOW)
[2018-07-21 06:09] LABS: URINE BACTERIA FEW /hpf; URINE EPITHELIAL CELLS 0 - 2 /hpf (0-5); URINE RBC 0 - 2 /hpf (0-2)
--- NOTE | 2018-07-21 09:14 | RAD ---
Date of service: 07/20/2018 PROCEDURE: FOURTH DIGIT LEFT FOOT RADIOGRAPHS HISTORY: eval for osteomyelitis COMPARISON: Fourth digit left foot radiographs 06/20/2017. TECHNIQUE: Three views left 4th digit been submitted capturing majority of left foot as well. FINDINGS: Once again, there is no acute fracture or dislocation at the left 4th digit with the appearance of the low left foot bony elements appearing stable. No subluxation or dislocation throughout the left 4th digit. Degenerative changes are stable throughout the left foot including joint space narrowing and articular cortical sclerosis diffusely. Metatarsophalangeal joints appear in persistent dorsiflexion. Interphalangeal joints appear neutral. Heterotopic calcification at the region of the origins of a few of the collateral ligaments at the 4th and 5th digits surrounding the interphalangeal joints is reiterated. No overt pattern to suggest osteomyelitis. Large plantar calcaneal spur reiterated. Diffuse osteopenia suggests osteoporosis. IMPRESSION: No overt pattern to suggest osteomyelitis at this time. No acute fracture or dislocation identified once again throughout the left 4th digit with diffuse degenerative joint changes seen throughout the left foot.
--- NOTE | 2018-07-21 09:28 | RAD ---
Date of service: 07/20/2018 HISTORY: clearance COMPARISON: Chest radiographs 01/21/2016. FINDINGS: LUNGS: No active pulmonary disease. PLEURA: No significant pleural effusion identified, no pneumothorax apparent. CARDIOVASCULAR: Calcific atherosclerotic changes are seen related to the thoracic aorta. Stable appearing unipolar permanent cardiac pacemaker reiterated. Normal cardiac size. No pulmonary vascular congestion. OSSEOUS STRUCTURES: No significant abnormalities. VISUALIZED UPPER ABDOMEN: Normal. OTHER FINDINGS: None. IMPRESSION: No interval acute cardiopulmonary disease appreciated. Pacemaker reiterated.
[2018-07-21] MEDS: POLYETHYLENE GLYCOL 3350 17 GM/Dose PACKET PO SCH ×2 (09:30→17:06)
[2018-07-21] MEDS: GlipiZIDE 10 mg SR Tab PO SCH (09:30)
[2018-07-21] MEDS: Dorzolamide 2%/Timolol 0.5% 100 DROP/10 ML BOTTLE OU SCH (09:56)
[2018-07-21] MEDS: Ammonium Lactate 12% Cream (140 g) TOP SCH (09:57)
[2018-07-21] MEDS ORDERED: JENTADUETO PO SCH (10:00)
[2018-07-21] MEDS: Morphine 2 mg/ml ISec IVP PRN (11:40)
--- NOTE | 2018-07-21 13:31 | CP.PCM.CON ---
History of Present Illness - History of Present Illness History of Present Illness: Podiatry consult note for Dr. Rice 83 year old female with PMHx of CVA, hypertension, NIDDM, chronic lymphocytic leukemia, and anemia seen and evaluated at bedside for left foot fourth digit ulcer. Patients son is noted to be at bedside who states the ulcer has been present for 3 months and has been getting increasingly painful over time. States she was admitted and has had a full vascular workup recently however the ulcer has been getting larger. Denies fevers, chills, headache, dizziness, chest pain, shortness of breath, dyspnea on exertion, cough, abdominal pain, nausea, vomiting, diarrhea, back pain, neck pain, or any other complaint. PMD: Dr. Dalton Yeh Past Patient History - Infectious Disease Hx of Infectious Diseases: None - Tetanus Immunizations Tetanus Immunization: Up to Date - Past Medical History & Family History Past Medical History?: Yes - Past Social History Smoking Status: Never Smoked - CARDIAC Hx Pacemaker: Yes - PULMONARY Hx Asthma: No (family denies) - NEUROLOGICAL Hx Paralysis: No - HEENT Hx Cataracts: Yes (left eye) Hx Glaucoma: Yes (left eye had sx. right eye needs sx) - RENAL Hx Chronic Kidney Disease: No - ENDOCRINE/METABOLIC Hx Diabetes Mellitus Type 2: Yes - HEMATOLOGICAL/ONCOLOGICAL Hx Blood Transfusions: No - INTEGUMENTARY Other/Comment: shingle - MUSCULOSKELETAL/RHEUMATOLOGICAL Hx Musculoskeletal Disorders: Yes (LUMBAR RADICULOPATHY,ROTATOR CUFF DAMAGE,) Other/Comment: ulcer to L foot - GASTROINTESTINAL Hx Gastroesophageal Reflux: Yes - GENITOURINARY/GYNECOLOGICAL Hx Genitourinary Disorders: No Hx Reproductive Disorders: No - PSYCHIATRIC Hx Emotional Abuse: No Hx Physical Abuse: No Hx Substance Use: No - SURGICAL HISTORY Hx Cardiac Catheterization: Yes (stent x1) - ANESTHESIA Hx Anesthesia Reactions: No Hx Malignant Hyperthermia: No Meds Allergies/Adverse Reactions: Allergies Allergy/AdvReac Type Severity Reaction Status Date / Time iodine Allergy ANAPHYLAXIS Verified 06/20/18 20:40 zolpidem tartrate AdvReac DIZZINESS Verified 06/20/18 20:40 [From Ambien] - Medications Medications: Current Medications Aspirin (Aspirin Chewable) 81 mg PO DAILY [facility] Last Admin: 07/21/18 09:29 Dose: 81 mg Atenolol (Tenormin) 25 mg PO DAILY [facility] Last Admin: 07/21/18 09:30 Dose: 25 mg Clopidogrel Bisulfate (Plavix) 75 mg PO DAILY [facility] Last Admin: 07/21/18 09:29 Dose: 75 mg Dorzolamide/Timolol (Cosopt 2%-0.5% Opht) 1 drop OU DAILY [facility] Last Admin: 07/21/18 09:56 Dose: 1 drop Glipizide (Glucotrol Xl) 10 mg PO DAILY [facility] Last Admin: 07/21/18 09:30 Dose: 10 mg Hydrochlorothiazide (Hydrodiuril) 25 mg PO DAILY [facility] Last Admin: 07/21/18 09:29 Dose: 25 mg Sodium Chloride (Sodium Chloride 0.9%) 1,000 mls @ 100 mls/hr IV .Q10H [facility] Last Admin: 07/20/18 17:51 Dose: 100 mls/hr Ceftaroline Fosamil 400 mg/ (Sodium Chloride) 100 mls @ 100 mls/hr IVPB Q12 [facility]; Protocol Stop: 07/28/18 12:10 Lactic Acid (Lac-Hydrin 12% Cream (140 G)) 12 ea TOP DAILY [facility] Last Admin: 07/21/18 09:57 Dose: 1 applic Losartan Potassium (Cozaar) 100 mg PO DAILY [facility] Last Admin: 07/21/18 09:29 Dose: 100 mg Morphine Sulfate (Morphine) 2 mg IVP Q4H PRN PRN Reason: Pain, moderate (4-7) Last Admin: 07/21/18 11:40 Dose: 2 mg Jentadueto 2.5mg - (500 Mg (Home Med)) 2.5 - 500 mg PO BID [facility] Polyethylene Glycol (Miralax) 17 gm PO BID [facility] Last Admin: 07/21/18 09:30 Dose: 17 gm Physical Exam - Constitutional Appears: Well, Non-toxic, No Acute Distress - Head Exam Head Exam: ATRAUMATIC, NORMOCEPHALIC - Eye Exam Eye Exam: Normal appearance Pupil Exam: NORMAL ACCOMODATION - ENT Exam ENT Exam: Mucous Membranes Moist - Neck Exam Neck exam: Positive for: Normal Inspection - Respiratory Exam Respiratory Exam: NORMAL BREATHING PATTERN - Cardiovascular Exam Cardiovascular Exam: REGULAR RHYTHM - Extremities Exam Additional comments: Bilateral Lower Extremity Exam VASC: DP and PT non-palpable bilaterally, CFT delayed, TG warm to cool, no edema noted NEURO: grossly intact DERM: 2 cm X 1 cm wound noted to the lateral aspect of the right 4th digit with 100% necrotic base, no drainage, no probe to bone, no malodor, no tunneling or tracking ORTHO: significant pain on palpation to the wound, and pain with 4th and 5th digit ranges of motion Results - Vital Signs Recent Vital Signs: Last Vital Signs Temp 98.4 F 07/21/18 06:00 Pulse 68 07/21/18 09:30 Resp 16 07/21/18 06:00 BP 158/68 H 07/21/18 09:30 Pulse Ox 97 07/21/18 06:00 - Labs Result Diagrams: 07/20/18 17:30 07/20/18 17:30 Labs: Laboratory Results - last 24 hr 07/20/18 07/20/18 07/20/18 17:30 17:30 17:30 WBC 10.3 D RBC 4.71 Hgb 13.2 Hct 41.7 MCV 88.5 MCH 28.0 MCHC 31.7 RDW 15.3 H Plt Count 276 MPV 11.0 Neut % (Auto) 69.9 H Lymph % (Auto) 16.0 L White % (Auto) 11.7 H Eos % (Auto) 2.0 Baso % (Auto) 0.4 Lymph # (Auto) 1.6 White # (Auto) 1.2 H Eos # (Auto) 0.2 Baso # (Auto) 0.04 Absolute Neuts (auto) 7.17 H PT 12.2 INR 1.10 APTT 32.9 pO2 VBG pH VBG pCO2 VBG HCO3 VBG Total CO2 VBG O2 Sat (Calc) VBG Base Excess VBG Potassium Glucose Lactate FiO2 Crit Value Called To Crit Value Called By Blood Gas Notified Time Sodium 140 Potassium 4.4 Chloride 105 Carbon Dioxide 27 Anion Gap 13 BUN 31 H Creatinine 1.1 Est GFR ( Amer) 57 Est GFR (Non-Af Amer) 47 POC Glucose (mg/dL) Random Glucose 83 Calcium 10.2 Total Bilirubin 0.5 AST 41 H D ALT 9 Alkaline Phosphatase 61 Total Protein 8.1 Albumin 4.6 Globulin 3.4 Albumin/Globulin Ratio 1.3 Venous Blood Potassium Urine Color Urine Appearance Urine pH Ur Specific [place] Urine Protein Urine Glucose (UA) Urine Ketones Urine Blood Urine Nitrate Urine Bilirubin Urine Urobilinogen Ur Leukocyte Esterase Urine RBC Urine WBC Ur Epithelial Cells Urine Bacteria 07/20/18 07/20/18 07/20/18 17:47 18:00 21:35 WBC RBC Hgb Hct MCV MCH MCHC RDW Plt Count MPV Neut % (Auto) Lymph % (Auto) White % (Auto) Eos % (Auto) Baso % (Auto) Lymph # (Auto) White # (Auto) Eos # (Auto) Baso # (Auto) Absolute Neuts (auto) PT INR APTT pO2 30 28 L VBG pH 7.35 7.40 VBG pCO2 48.0 44.0 VBG HCO3 26.5 27.3 VBG Total CO2 28.0 28.7 H VBG O2 Sat (Calc) 62.7 57.4 VBG Base Excess 0.3 2.0 VBG Potassium 4.2 4.2 Glucose 83 167 H Lactate 2.4 H 1.4 FiO2 21.0 21.0 Crit Value Called To Nereida curtis Crit Value Called By Mrp Blood Gas Notified Time 1805 Sodium 140.0 141.0 Potassium Chloride 105.0 107.0 Carbon Dioxide Anion Gap BUN Creatinine Est GFR ( Amer) Est GFR (Non-Af Amer) POC Glucose (mg/dL) 83 Random Glucose Calcium Total Bilirubin AST ALT Alkaline Phosphatase Total Protein Albumin Globulin Albumin/Globulin Ratio Venous Blood Potassium 4.2 4.2 Urine Color Urine Appearance Urine pH Ur Specific [place] Urine Protein Urine Glucose (UA) Urine Ketones Urine Blood Urine Nitrate Urine Bilirubin Urine Urobilinogen Ur Leukocyte Esterase Urine RBC Urine WBC Ur Epithelial Cells Urine Bacteria 07/20/18 07/21/18 07/21/18 22:31 05:20 05:29 WBC RBC Hgb Hct MCV MCH MCHC RDW Plt Count MPV Neut % (Auto) Lymph % (Auto) White % (Auto) Eos % (Auto) Baso % (Auto) Lymph # (Auto) White # (Auto) Eos # (Auto) Baso # (Auto) Absolute Neuts (auto) PT INR APTT pO2 VBG pH VBG pCO2 VBG HCO3 VBG Total CO2 VBG O2 Sat (Calc) VBG Base Excess VBG Potassium Glucose Lactate FiO2 Crit Value Called To Crit Value Called By Blood Gas Notified Time Sodium Potassium Chloride Carbon Dioxide Anion Gap BUN Creatinine Est GFR ( Amer) Est GFR (Non-Af Amer) POC Glucose (mg/dL) 216 H 100 Random Glucose Calcium Total Bilirubin AST ALT Alkaline Phosphatase Total Protein Albumin Globulin Albumin/Globulin Ratio Venous Blood Potassium Urine Color Yellow Urine Appearance Sl cloudy Urine pH 6.0 Ur Specific [place] 1.020 Urine Protein Negative Urine Glucose (UA) Negative Urine Ketones Negative Urine Blood Negative Urine Nitrate Negative Urine Bilirubin Negative Urine Urobilinogen 0.2 Ur Leukocyte Esterase Small H Urine RBC 0 - 2 Urine WBC 5 - 10 H Ur Epithelial Cells 0 - 2 Urine Bacteria Few Assessment & Plan - Assessment and Plan (Free Text) Assessment: 83 y/o female patient was seen and evaluated for right 4th digit ischemic ulcer; no signs of infectino Plan: Patient seen and evaluated at bedside Plan discussed with attending Chart, labs and vitals reviewed Vascular surgery on board; appreciate recs ID on board; appreciate recs Foot x-ray reviewed; no osseous abnormalities noted f/u Wound cx and Blood cx Continue iV antibiotics per ID MRI of the left foot ordered. Podiatry will continue to follow patient
[2018-07-21] MEDS: JENTADUETO PO SCH (17:07)
[2018-07-21] MEDS: Sodium Chloride 0.9% 1,000 ML IV SCH ×2 (18:45→20:58)
--- NOTE | 2018-07-21 19:53 | CARD ---
APPROVED REPORT Date of service: 07/20/2018 EKG Measurement Heart [id number] <Conclusion> Electronic ventricular pacemaker
--- NOTE | 2018-07-21 20:05 | CON ---
DATE OF CONSULTATION: 07/21/2018 The patient is seen in room 561, bed 1. CHIEF COMPLAINT: Left foot infection times several days. HISTORY OF PRESENT ILLNESS: This is an 83-year-old female with diabetes mellitus, GERD, hypertension, high cholesterol, cataract of left eye, history of small bowel obstruction, and history of cerebrovascular accident, who is admitted with diagnosis of cellulitis. Infectious Disease consultation requested. The patient is complaining of significant pain in her left foot, especially in the fourth toe, and no nausea or vomiting. No chest pain. No abdominal pain, diarrhea, or constipation. No bright red blood per rectum. No melena. REVIEW OF SYSTEMS: Twelve-point review systems is performed. PAST MEDICAL HISTORY: Significant for diabetes mellitus, GERD, hypertension, high cholesterol, left eye cataract, small bowel obstructions and cerebrovascular accident. PAST SURGICAL HISTORY: Significant for a pacemaker, left eye surgery, tonsillectomy, and hysterectomy. ALLERGIES: THE PATIENT IS ALLERGIC TO IODINE. MEDICATIONS: Medications at home revealed the patient to be on glipizide, aspirin, Plavix, and atenolol. PHYSICAL EXAMINATION: GENERAL: The patient is in bed. VITAL SIGNS: Temperature of 98, blood pressure is 158/60, respiratory rate of 18, and a heart rate of 75. HEENT: Examination of HEENT is unremarkable. NECK: Supple. LUNGS: Have decreased breath sounds. HEART: Normal S1, S2. ABDOMEN: Soft, nontender. LABORATORY DATA: Laboratory examination reveals a white count of 10,000, hemoglobin of 13, platelets of 276. Chemistries revealed a creatinine of 1.1. Urinalysis is noted. Microbiology reveals cultures positive for sensitive staph aureus from 06/20/2018. The patient had a chest x-ray, which is reported to be no active disease. X-ray of the foot, which shows no fractures, diffuse changes, no evidence of osteo. The patient also had an ultrasound, which was an arterial ultrasound, which showed bilateral tibial disease. ASSESSMENT AND PLAN: An 83-year-old female, on exam, fourth toe is erythematous, it is warm to touch. On lateral part there is an ulcer present and left foot fourth toe cellulitis, and diabetic, must rule out underlying vascular disease in a patient with renal deficiency, and we will start the patient on Teflaro to cover methicillin-resistant Staphylococcus aureus in addition to Gram negatives in a renal patient at 400 mg IV every 12 hours, must rule out underlying osteomyelitis and vascular workup for arterial disease in progress. Podiatry and Vascular consultation. Sed rate and C-reactive protein. We will follow with you. Valeriano Ann MD
--- NOTE | 2018-07-22 00:03 | PN ---
DATE: 07/21/2018 SUBJECTIVE: The patient is an 83-year-old female, admitted on 07/20/2018 with pain in the left foot. The patient has had approximately a six-week period of pain in the foot associated with peripheral vascular disease, status post admission for antibiotics, status post vascular intervention with Dr. Manolo Armendariz to attempt to increase the circulation on the left foot. The patient was readmitted with severe pain, swelling, and erythema of the foot. The patient denies any fever, chills. Denies any nausea, vomiting, and denies any drainage from the foot. REVIEW OF SYSTEMS: CARDIAC: Negative for chest pain, palpitations, shortness of breath. RESPIRATORY: Negative for cough, sputum production, hemoptysis. GASTROINTESTINAL: Negative for nausea, vomiting, diarrhea. NEUROLOGICAL: Negative for syncope, headache. Loss of strength in the upper and lower extremities. PAST MEDICAL HISTORY: The patient has a history of non-insulin dependent diabetes mellitus, hypertension, history of CVA in the past, history of DVT in the past. PHYSICAL EXAMINATION: GENERAL: Shows a well-developed, well-nourished white female, in no apparent distress. HEENT: Essentially within normal limits. HEART: Regular sinus rhythm. No S3 or murmurs. CHEST: Clear to auscultation and percussion. EXTREMITIES: Shows tenderness on palpation. Somewhat slight erythema at the dorsum of the left foot. There is also decreased strength approximately 4 to 5/5 of the left upper and left lower extremity from a history of history of CVA in the past. IMPRESSION: Peripheral vascular disease, cellulitis of the left foot, diabetic, hypertensive. The patient has history of cerebrovascular in the past. William Yeh MD
[2018-07-22] MEDS: Sodium Chloride 0.9% 1,000 ML IV SCH ×2 (02:28→09:19)
[2018-07-22] MEDS ORDERED: Oxycodone/Acetaminophen 5/325 mg Tab PO ONE (03:24)
--- NOTE | 2018-07-22 03:31 | CP.PCM.PN ---
Subjective - Date & Time of Evaluation Date of Evaluation: 07/22/18 Time of Evaluation: 03:27 - Subjective Subjective: It was requested to co sign order for tylenol which was given for left foot pain. Patient was seen at bedside. States that tylenol did not help. Patient has an order of morphine for pain but she did not want that. Medical record was reviewed. This 83 year old woman was admitted with left 4 th toe pain and ischemic changes,cellulitis. Has PMH of DM, PVD, pacemaker. Objective - Vital Signs/Intake and Output Vital Signs (last 24 hours): Temp Pulse Resp BP Pulse Ox 98.4 F 65 18 122/56 L 99 07/21/18 14:00 07/21/18 14:00 07/21/18 14:00 07/21/18 14:00 07/21/18 14:00 - Medications Medications: Current Medications Aspirin (Aspirin Chewable) 81 mg PO DAILY [facility] Last Admin: 07/21/18 09:29 Dose: 81 mg Atenolol (Tenormin) 25 mg PO DAILY [facility] Last Admin: 07/21/18 09:30 Dose: 25 mg Clopidogrel Bisulfate (Plavix) 75 mg PO DAILY [facility] Last Admin: 07/21/18 09:29 Dose: 75 mg Dorzolamide/Timolol (Cosopt 2%-0.5% Opht) 1 drop OU DAILY [facility] Last Admin: 07/21/18 09:56 Dose: 1 drop Glipizide (Glucotrol Xl) 10 mg PO DAILY [facility] Last Admin: 07/21/18 09:30 Dose: 10 mg Hydrochlorothiazide (Hydrodiuril) 25 mg PO DAILY [facility] Last Admin: 07/21/18 09:29 Dose: 25 mg Sodium Chloride (Sodium Chloride 0.9%) 1,000 mls @ 100 mls/hr IV .Q10H [facility] Last Admin: 07/22/18 02:28 Dose: Not Given Ceftaroline Fosamil 400 mg/ (Sodium Chloride) 100 mls @ 100 mls/hr IVPB Q12 [facility]; Protocol Stop: 07/28/18 12:10 Last Admin: 07/21/18 13:36 Dose: 100 mls/hr Lactic Acid (Lac-Hydrin 12% Cream (140 G)) 12 ea TOP DAILY [facility] Last Admin: 07/21/18 09:57 Dose: 1 applic Losartan Potassium (Cozaar) 100 mg PO DAILY [facility] Last Admin: 07/21/18 09:29 Dose: 100 mg Morphine Sulfate (Morphine) 2 mg IVP Q4H PRN PRN Reason: Pain, moderate (4-7) Last Admin: 07/21/18 11:40 Dose: 2 mg Jentadueto 2.5mg - (500 Mg (Home Med)) 2.5 - 500 mg PO BID [facility] Last Admin: 07/21/18 17:07 Dose: 2.5 mg Polyethylene Glycol (Miralax) 17 gm PO BID [facility] Last Admin: 07/21/18 17:06 Dose: 17 gm - Labs Labs: 07/20/18 17:30 07/20/18 17:30 PT 12.2 SECONDS (9.4-12.5) 07/20/18 17:30 INR 1.10 07/20/18 17:30 APTT 32.9 Seconds (26.9-38.3) 07/20/18 17:30 - Constitutional Appears: Well, No Acute Distress - Head Exam Head Exam: ATRAUMATIC, NORMAL INSPECTION, NORMOCEPHALIC - Eye Exam Eye Exam: Normal appearance - ENT Exam ENT Exam: Normal External Ear Exam - Neck Exam Neck Exam: Normal Inspection - Respiratory Exam Respiratory Exam: NORMAL BREATHING PATTERN - Cardiovascular Exam Cardiovascular Exam: absent: JVD - GI/Abdominal Exam GI & Abdominal Exam: absent: Distended - Rectal Exam Rectal Exam: Deferred - Exam Additional comments: Deferred. - Extremities Exam Additional comments: Left fourth toe ischemic changes. - Back Exam Back Exam: NORMAL INSPECTION - Neurological Exam Neurological Exam: Alert, Awake - Psychiatric Exam Psychiatric exam: Normal Affect, Normal Mood - Skin Skin Exam: Warm Assessment and Plan - Assessment and Plan (Free Text) Assessment: Left fourth toe pain. Left fourth toe cellulitis/ischemic changes. DM. PVD. Pacemaker. Plan: Tylenol 650 mg PO x 1 given. Percocet 5/325 , I PO x 1. Continue present management.
[2018-07-22] MEDS: Dorzolamide 2%/Timolol 0.5% 100 DROP/10 ML BOTTLE OU SCH (09:07)
[2018-07-22] MEDS: Ammonium Lactate 12% Cream (140 g) TOP SCH (09:08)
[2018-07-22] MEDS: JENTADUETO PO SCH (09:09)
[2018-07-22] MEDS: GlipiZIDE 10 mg SR Tab PO SCH (09:11)
[2018-07-22] MEDS: POLYETHYLENE GLYCOL 3350 17 GM/Dose PACKET PO SCH ×2 (09:18→18:15)
[2018-07-22] MEDS: Morphine 2 mg/ml ISec IVP PRN (09:50)
--- NOTE | 2018-07-22 11:57 | CP.PCM.PN ---
Subjective - Date & Time of Evaluation Date of Evaluation: 07/22/18 Time of Evaluation: 11:52 - Subjective Subjective: Podiatry consult note: Dr. Cade Patient seen and evaluated this morning. Patient resting comfortably and in NAD. Patient reports signifcant pain to her L 4th digit at this time. She states that it started as a small ulceration however got significantly more painful and larger in short period of time. She is accompanied by her daughter at today's visit. Denies nausea/vomiting/fever/shortness of breath/chest pain/chills. Objective - Vital Signs/Intake and Output Vital Signs (last 24 hours): Temp Pulse Resp BP Pulse Ox 98.6 F 68 20 142/59 L 99 07/22/18 06:00 07/22/18 09:26 07/22/18 06:00 07/22/18 09:26 07/22/18 06:00 Intake and Output: 07/22/18 07/22/18 06:59 18:59 Intake Total 180 Balance 180 - Medications Medications: Current Medications Aspirin (Aspirin Chewable) 81 mg PO DAILY [facility] Last Admin: 07/22/18 09:11 Dose: 81 mg Atenolol (Tenormin) 25 mg PO DAILY [facility] Last Admin: 07/22/18 09:26 Dose: 25 mg Clopidogrel Bisulfate (Plavix) 75 mg PO DAILY [facility] Last Admin: 07/22/18 09:11 Dose: 75 mg Dorzolamide/Timolol (Cosopt 2%-0.5% Opht) 1 drop OU DAILY [facility] Last Admin: 07/22/18 09:07 Dose: 1 drop Glipizide (Glucotrol Xl) 10 mg PO DAILY [facility] Last Admin: 07/22/18 09:11 Dose: 10 mg Sodium Chloride (Sodium Chloride 0.9%) 1,000 mls @ 100 mls/hr IV .Q10H [facility] Last Admin: 07/22/18 09:19 Dose: 100 mls/hr Ceftaroline Fosamil 400 mg/ (Sodium Chloride) 100 mls @ 100 mls/hr IVPB Q12 [facility]; Protocol Stop: 07/28/18 12:10 Last Admin: 07/22/18 09:28 Dose: 100 mls/hr Insulin Human Regular (Humulin R Low) 0 units SC ACHS [facility]; Protocol Lactic Acid (Lac-Hydrin 12% Cream (140 G)) 12 ea TOP DAILY [facility] Last Admin: 07/22/18 09:08 Dose: 1 applic Losartan Potassium (Cozaar) 100 mg PO DAILY [facility] Last Admin: 07/22/18 09:10 Dose: 100 mg Morphine Sulfate (Morphine) 2 mg IVP Q4H PRN PRN Reason: Pain, moderate (4-7) Last Admin: 07/22/18 09:50 Dose: 2 mg Polyethylene Glycol (Miralax) 17 gm PO BID [facility] Last Admin: 07/22/18 09:18 Dose: 17 gm Sitagliptin Phosphate (Januvia) 100 mg PO DAILY [facility] Last Admin: 07/22/18 10:33 Dose: Not Given - Labs Labs: 07/20/18 17:30 07/20/18 17:30 PT 12.2 SECONDS (9.4-12.5) 07/20/18 17:30 INR 1.10 07/20/18 17:30 APTT 32.9 Seconds (26.9-38.3) 07/20/18 17:30 - Constitutional Appears: Non-toxic, No Acute Distress - Head Exam Head Exam: ATRAUMATIC, NORMOCEPHALIC - Extremities Exam Additional comments: B/L lower extremity exam: VASC: DP and PT non-palpable bilaterally, CFT delayed, TG warm to cool, no edema noted ORTHO: significant pain on palpation to the wound, and pain with 4th and 5th digit ranges of motion NEURO: grossly intact, protective sensation diminished DERM: 2 cm X 1 cm wound noted to the lateral aspect of the right 4th digit with 100% necrotic base, no drainage, no probe to bone, no malodor, no tunneling or tracking - Neurological Exam Neurological Exam: Alert, Awake, Oriented x3 - Psychiatric Exam Psychiatric exam: Normal Affect, Normal Mood Assessment and Plan - Assessment and Plan (Free Text) Assessment: 83 year old female patient was seen and evaluated for right 4th digit ischemic ulcer, stable Plan: Patient seen and evaluated at bedside with attending, Dr. Alyssia WAN Vascular surgery on board; recs appreciated Foot x-ray reviewed; no osseous abnormalities noted Wound culture; gram + cocci prelim Blood culture; no growth Local wound care; DSD Continue IV abx per ID reccs Will continue to follow patient
[2018-07-22] MEDS: Insulin Reg-LOW-Coverage SC SCH ×3 (12:18→22:00)
--- NOTE | 2018-07-22 15:31 | PN ---
DATE: 07/22/2018 SUBJECTIVE: An 83-year-old white female with peripheral vascular disease, diabetes mellitus non-insulin dependent, hypertension, history of CVA, admitted with cellulitis and possible gangrene of the left fourth toe. The patient is on IV antibiotics. She had an ultrasound, which showed better flow since her last procedure with Dr. Manolo Armendariz with stent. She does have left tibial disease. LABORATORY DATA: Her sed rate is only 24. Her white count is normal. PHYSICAL EXAMINATION: VITAL SIGNS: She is afebrile, vital signs are stable. Physical examination is unchanged. SKIN: There is some discoloration and tenderness of the left fourth toe. There is no erythema or red streaks of the foot. CHEST: Clear to auscultation and percussion. HEART: Regular sinus rhythm. ABDOMEN: There is some discoloration of the lower abdomen secondary to her angiogram. PLAN: Continue IV antibiotics. Discussed with Dr. Manolo Armendariz, discussed with Dr. Cade possible amputation if Hopefully we can avoid this. Possible angiogram to re-assess whether this is a small versus large vessel disease. William Yeh MD
--- NOTE | 2018-07-22 22:45 | PN ---
DATE: 07/22/2018 SUBJECTIVE: The patient is seen in room 561 earlier this morning. No fevers and no chills. PHYSICAL EXAMINATION: VITAL SIGNS: Temperature is 98, blood pressure is 130/60, respiratory rate of 18. HEENT: Unremarkable. NECK: Supple. LUNGS: Have decreased breath sounds. HEART: Normal S1, S2. ABDOMEN: Soft. LABORATORY DATA: White count of 10,000 and chemistries are noted. The patient has a BUN of 31, creatinine of 1.1. Urinalysis is noted. Microbiology reveals the left foot with gram-positive cocci. The blood cultures and urine cultures are negative. Review of orders reveals the patient to be on Teflaro.. ASSESSMENT AND PLAN: This is an 83-year-old female with erythema and cellulitis of the left fourth toe and a diabetic with a gram-positive cocci. We will check on identification and sensitivity. Currently on Teflaro, must rule out underlying vascular peripheral arterial disease and also osteomyelitis. Valeriano Ann MD
[2018-07-23] MEDS: Sodium Chloride 0.9% 1,000 ML IV SCH (03:22)
[2018-07-23] MEDS: Morphine 2 mg/ml ISec IVP PRN ×2 (03:23→10:18)
[2018-07-23 06:44] VITALS: PULSE 64
[2018-07-23] MEDS: Insulin Reg-LOW-Coverage SC SCH ×3 (07:21→16:47)
--- NOTE | 2018-07-23 08:51 | CP.PCM.APN ---
Subjective - Date & Time of Evaluation Date of Evaluation: 07/23/18 Time of Evaluation: 08:40 - Subjective Subjective: Pt seen and examined at bedside. Still c/o pain to L 4th toe, which is worse on palpation. Otherwise, pt is in no acute distress. Objective - Vital Signs/Intake and Output Vital Signs (last 24 hours): Temp Pulse Resp BP Pulse Ox 98 F 64 18 169/74 H 97 07/23/18 06:00 07/23/18 06:38 07/23/18 06:00 07/23/18 06:38 07/23/18 06:00 Intake and Output: 07/23/18 07/23/18 06:59 18:59 Intake Total 3180 Output Total 2 Balance 3178 - Medications Medications: Current Medications Amlodipine Besylate (Norvasc) 5 mg PO DAILY [facility] Aspirin (Aspirin Chewable) 81 mg PO DAILY [facility] Last Admin: 07/22/18 09:11 Dose: 81 mg Atenolol (Tenormin) 25 mg PO DAILY [facility] Last Admin: 07/23/18 06:38 Dose: 25 mg Clopidogrel Bisulfate (Plavix) 75 mg PO DAILY [facility] Last Admin: 07/22/18 09:11 Dose: 75 mg Dorzolamide/Timolol (Cosopt 2%-0.5% Opht) 1 drop OU DAILY [facility] Last Admin: 07/22/18 09:07 Dose: 1 drop Glipizide (Glucotrol Xl) 10 mg PO DAILY [facility] Last Admin: 07/22/18 09:11 Dose: 10 mg Sodium Chloride (Sodium Chloride 0.9%) 1,000 mls @ 100 mls/hr IV .Q10H [facility] Last Admin: 07/23/18 03:22 Dose: 100 mls/hr Ceftaroline Fosamil 400 mg/ (Sodium Chloride) 100 mls @ 100 mls/hr IVPB Q12 [facility]; Protocol Stop: 07/28/18 12:10 Last Admin: 07/22/18 21:24 Dose: 100 mls/hr Insulin Human Regular (Humulin R Low) 0 units SC ACHS [facility]; Protocol Last Admin: 07/22/18 22:00 Dose: Not Given Lactic Acid (Lac-Hydrin 12% Cream (140 G)) 12 ea TOP DAILY [facility] Last Admin: 07/22/18 09:08 Dose: 1 applic Losartan Potassium (Cozaar) 100 mg PO DAILY [facility] Last Admin: 07/22/18 09:10 Dose: 100 mg Morphine Sulfate (Morphine) 2 mg IVP Q4H PRN PRN Reason: Pain, moderate (4-7) Last Admin: 07/23/18 03:23 Dose: 2 mg Polyethylene Glycol (Miralax) 17 gm PO BID [facility] Last Admin: 07/22/18 18:15 Dose: Not Given Sitagliptin Phosphate (Januvia) 100 mg PO DAILY [facility] Last Admin: 07/22/18 10:33 Dose: Not Given - Labs Labs: 07/20/18 17:30 07/20/18 17:30 PT 12.2 SECONDS (9.4-12.5) 07/20/18 17:30 INR 1.10 07/20/18 17:30 APTT 32.9 Seconds (26.9-38.3) 07/20/18 17:30 Assessment and Plan - Assessment and Plan (Free Text) Assessment: Pt is an 83 y.o. female with pmhx of DM, PVD, CVA, DVT, and pacemaker who presented in ED 2/2 L 4th toe pain. The lateral side of L 4th toe has an ulcer which is necrotic and painful on palpation. D/W PMD, no vascular intervention at this time. ITS Impressions Foot X-Ray 07/20/18 17:29 IMPRESSION: No overt pattern to suggest osteomyelitis at this time. No acute fracture or dislocation identified once again throughout the left 4th digit with diffuse degenerative joint changes seen throughout the left foot. Extremity Ultrasound 07/20/18 17:50 IMPRESSION: 1. Bilateral tibial disease. 2. The left calf and distal waveforms are improved when compared to the pre intervention study. Chest X-Ray 07/20/18 18:46 IMPRESSION: No interval acute cardiopulmonary disease appreciated. Pacemaker reiterated. Plan: Awaiting final results of WCX Pending CT Lower ext results - r/o osteo On Teflaro per ID recs ID, Podiatry and Vascular on consult Meds per MAR Physical therapy recommends TCU Will continue to follow
[2018-07-23] MEDS: Dorzolamide 2%/Timolol 0.5% 100 DROP/10 ML BOTTLE OU SCH (10:16)
[2018-07-23] MEDS: POLYETHYLENE GLYCOL 3350 17 GM/Dose PACKET PO SCH ×2 (10:16→17:05)
--- NOTE | 2018-07-23 10:16 | PN ---
DATE: 07/23/2018 SUBJECTIVE: This is an 83-year-old white female with diabetic foot infection, peripheral vascular disease, diabetes mellitus, history of CVA, history of CAD and pacemaker. The patient has a partially gangrenous lateral fourth toe left foot. The patient has had a stent recently by Dr. Manolo Armendariz. She has decent flow, but she has small vessel disease. She was recommended for partial amputation of the toe, the patient is refusing at this point. Vital signs are stable. She is afebrile. She has less pain today as well as she has poor appetite. The case was discussed with the daughter. The patient would possibly try a course of antibiotics to heal and see if she will demarcate and have some resolution of this diabetic foot infection, otherwise the patient will need amputation. Case discussed with social, with the nurse practitioner on the floor. We will look for possible TCU and she did have a CT. We will discuss possible multi antibiotics for the patient. William Yeh MD
[2018-07-23] MEDS: GlipiZIDE 10 mg SR Tab PO SCH (10:17)
[2018-07-23] MEDS: Ammonium Lactate 12% Cream (140 g) TOP SCH (10:20)
--- NOTE | 2018-07-23 10:55 | CP.PCM.PN ---
Subjective - Date & Time of Evaluation Date of Evaluation: 07/23/18 Time of Evaluation: 10:52 - Subjective Subjective: Podiatry consult note: Dr. Cade Patient seen and evaluated this AM. Patient resting comfortably and in NAD. She reports pain to her left toe this morning upon palpation. Denies nausea/vomiting/fever/shortness of breath/chest pain/chills. Objective - Vital Signs/Intake and Output Vital Signs (last 24 hours): Temp Pulse Resp BP Pulse Ox 98 F 64 18 170/74 H 97 07/23/18 06:00 07/23/18 10:18 07/23/18 06:00 07/23/18 10:18 07/23/18 06:00 Intake and Output: 07/23/18 07/23/18 06:59 18:59 Intake Total 3180 Output Total 2 Balance 3178 - Medications Medications: Current Medications Amlodipine Besylate (Norvasc) 5 mg PO DAILY [facility] Last Admin: 07/23/18 10:17 Dose: 5 mg Aspirin (Aspirin Chewable) 81 mg PO DAILY [facility] Last Admin: 07/23/18 10:17 Dose: 81 mg Atenolol (Tenormin) 25 mg PO DAILY [facility] Last Admin: 07/23/18 10:18 Dose: 25 mg Clopidogrel Bisulfate (Plavix) 75 mg PO DAILY [facility] Last Admin: 07/23/18 10:17 Dose: 75 mg Dorzolamide/Timolol (Cosopt 2%-0.5% Opht) 1 drop OU DAILY [facility] Last Admin: 07/23/18 10:16 Dose: 1 drop Glipizide (Glucotrol Xl) 10 mg PO DAILY [facility] Last Admin: 07/23/18 10:17 Dose: 10 mg Sodium Chloride (Sodium Chloride 0.9%) 1,000 mls @ 100 mls/hr IV .Q10H [facility] Last Admin: 07/23/18 03:22 Dose: 100 mls/hr Ceftaroline Fosamil 400 mg/ (Sodium Chloride) 100 mls @ 100 mls/hr IVPB Q12 [facility]; Protocol Stop: 07/28/18 12:10 Last Admin: 07/23/18 10:20 Dose: 100 mls/hr Insulin Human Regular (Humulin R Low) 0 units SC ACHS [facility]; Protocol Last Admin: 07/23/18 07:21 Dose: Not Given Lactic Acid (Lac-Hydrin 12% Cream (140 G)) 12 ea TOP DAILY [facility] Last Admin: 07/23/18 10:20 Dose: 1 applic Losartan Potassium (Cozaar) 100 mg PO DAILY [facility] Last Admin: 07/23/18 10:17 Dose: 100 mg Morphine Sulfate (Morphine) 2 mg IVP Q4H PRN PRN Reason: Pain, moderate (4-7) Last Admin: 07/23/18 10:18 Dose: 2 mg Polyethylene Glycol (Miralax) 17 gm PO BID [facility] Last Admin: 07/23/18 10:16 Dose: 17 gm Sitagliptin Phosphate (Januvia) 100 mg PO DAILY [facility] Last Admin: 07/23/18 10:17 Dose: 100 mg - Labs Labs: 07/20/18 17:30 07/20/18 17:30 PT 12.2 SECONDS (9.4-12.5) 07/20/18 17:30 INR 1.10 07/20/18 17:30 APTT 32.9 Seconds (26.9-38.3) 07/20/18 17:30 - Constitutional Appears: Non-toxic, No Acute Distress - Head Exam Head Exam: ATRAUMATIC, NORMOCEPHALIC - Extremities Exam Additional comments: B/L lower extremity exam: VASC: DP and PT non-palpable bilaterally, CFT delayed, TG warm to cool, no edema noted ORTHO: significant pain on palpation to the wound, and pain with 4th and 5th digit ranges of motion NEURO: grossly intact, protective sensation diminished DERM: 2 cm X 1 cm wound noted to the lateral aspect of the right 4th digit with 100% necrotic base, no drainage, no probe to bone, no malodor, no tunneling or tracking - Neurological Exam Neurological Exam: Alert, Awake, Oriented x3 - Psychiatric Exam Psychiatric exam: Normal Affect, Normal Mood Assessment and Plan - Assessment and Plan (Free Text) Assessment: 83 year old female patient was seen and evaluated for right 4th digit ischemic ulcer, stable Plan: Patient seen and evaluated at bedside with attending, Dr. Cade VSBruno Vascular surgery on board; recs appreciated Foot x-ray reviewed; no osseous abnormalities noted Wound culture; Staph aureus LE CT taken; final read pending Blood culture; no growth Local wound care; DSD Continue IV abx per ID reccs No surgical intervention at this time Will continue to follow patient
--- NOTE | 2018-07-23 12:42 | CT ---
Date of service: 07/23/2018 PROCEDURE: CT of the left foot without contrast HISTORY: ulcer 4th toe COMPARISON: Comparison is made to the previous x-ray of the left foot dated 07/20/2018 TECHNIQUE: Axial and reformatted coronal and sagittal CT images of the left foot were obtained without contrast administration. Total exam DLP: 292.46 FINDINGS: There is no evidence of focal cortical destruction or periosteal reaction in the left foot to suggest active osteomyelitis. Soft tissue swelling noted in the distal left foot more prominent at the 4th and 5th toes. No evidence of soft tissue pneumatosis. No CT evidence of discrete fluid collection. Moderate arthritic degenerative changes noted in the tarsal, tarsal metatarsal and metatarsal-phalangeal joints. There is subluxation of the metatarsal-phalangeal joint noted. IMPRESSION: Suboptimal evaluation without IV contrast administration. No CT evidence of acute osteomyelitis. No evidence of soft tissue pneumatosis or discrete fluid collection.
[2018-07-23 14:23] VITALS: RESP 20; TEMP 99; O2SAT 96
[2018-07-23 15:45] VITALS: BP 131/69
--- NOTE | 2018-07-24 02:21 | PN ---
DATE: 07/23/2018 SUBJECTIVE: The patient is seen in the bed, in no acute distress. The patient was seen early this morning in room 561, bed 1. Tolerating the antibiotics well. PHYSICAL EXAMINATION: VITAL SIGNS: Temperature is 99, blood pressure 130/60, and respiratory rate of 18. HEENT: Unremarkable. NECK: Supple. LUNGS: Have decreased breath sounds. HEART: Normal S1 and S2. ABDOMEN: Soft and nontender. LABORATORY DATA: Reveals a white count of 10,000 and hemoglobin of 13. BUN of 31 and creatinine of 1.1. The patient has sensitive Staph aureus with a CAT scan, with no evidence of osteomyelitis. Case discussed with nursing and nurse practitioner. ASSESSMENT AND PLAN: This is an 83 year old with erythema and cellulitis of the left fourth toe with a sensitive Staph aureus with a negative osteomyelitis, maybe able to use p.o. cephalosporin . Dr. Yeh's progress note from today is reviewed. She will follow with him as outpatient. Valeriano Ann MD
== END 2018-07-23 19:03 | DRG 300 ==
LOC: ED 16:32 → ERH 19:20 → 5RNO 21:56
PROVIDERS: ADMIT Internal Medicine Medical Oncology; ATTEND Internal Medicine Medical Oncology
DX: E11.52 Type 2 diabetes mellitus with diabetic peripheral angiopathy with gangrene (principal); L03.116 Cellulitis of left lower limb; E11.621 Type 2 diabetes mellitus with foot ulcer; L97.529 Non-pressure chronic ulcer of other part of left foot with unspecified severity; Z79.84 Long term (current) use of oral hypoglycemic drugs; Z79.82 Long term (current) use of aspirin; Z79.02 Long term (current) use of antithrombotics/antiplatelets; Z79.899 Other long term (current) drug therapy; Z86.73 Personal history of transient ischemic attack (TIA), and cerebral infarction without residual deficits; Z85.6 Personal history of leukemia; I10 Essential (primary) hypertension; D64.9 Anemia, unspecified; L03.032 Cellulitis of left toe; M79.673 Pain in unspecified foot; E11.36 Type 2 diabetes mellitus with diabetic cataract; E11.628 Type 2 diabetes mellitus with other skin complications; E78.00 Pure hypercholesterolemia, unspecified; H40.9 Unspecified glaucoma; I25.10 Atherosclerotic heart disease of native coronary artery without angina pectoris; K21.9 Gastro-esophageal reflux disease without esophagitis; Z86.718 Personal history of other venous thrombosis and embolism; Z90.710 Acquired absence of both cervix and uterus; Z88.8 Allergy status to other drugs, medicaments and biological substances; Z87.892 Personal history of anaphylaxis; A49.01 Methicillin susceptible Staphylococcus aureus infection, unspecified site

== ENCOUNTER 2018-07-23 19:07 | Inpatient (IN) | payer OTHER, BC ==
[2018-07-23 19:49] VITALS: BMI 23.3
[2018-07-23] MEDS: Morphine 2 mg/ml ISec IVP PRN (20:48)
[2018-07-23] MEDS: Insulin Reg-LOW-Coverage SC SCH (22:05)
[2018-07-23] MEDS ORDERED: Pneumococcal 23-Valent Vaccine IM ONE (23:20)
[2018-07-23] MEDS ORDERED: Influenza Vaccine 60 mcg/0.5 mL SYR (4YR UP) IM ONE (23:20)
[2018-07-24] MEDS: Morphine 2 mg/ml ISec IVP PRN ×3 (05:46→21:15)
[2018-07-24] MEDS: GlipiZIDE 10 mg SR Tab PO SCH (08:00)
[2018-07-24] MEDS: Dorzolamide 2%/Timolol 0.5% 100 DROP/10 ML BOTTLE OU SCH (10:11)
[2018-07-24] MEDS: POLYETHYLENE GLYCOL 3350 17 GM/Dose PACKET PO SCH ×2 (10:12→17:31)
[2018-07-24] MEDS: Insulin Reg-LOW-Coverage SC SCH ×3 (12:29→21:52)
--- NOTE | 2018-07-24 13:13 | CP.PCM.PN ---
<Jillian Qureshi - Last Filed: 07/24/18 13:09> Subjective - Date & Time of Evaluation Date of Evaluation: 07/24/18 Time of Evaluation: 13:10 - Subjective Subjective: Podiatry consult note: Dr. Rice Patient seen and evaluated this AM in TCU. Patient resting comfortably and in NAD. She reports pain to her L toe this morning, especially when she moves it. Denies nausea/vomiting/fever/shortness of breath/chest pain/chills. Objective - Vital Signs/Intake and Output Vital Signs (last 24 hours): Temp Pulse Resp BP Pulse Ox 98.7 F 71 18 120/63 07/23/18 23:02 07/24/18 10:14 07/23/18 23:02 07/24/18 10:14 - Medications Medications: Current Medications Amlodipine Besylate (Norvasc) 5 mg PO DAILY [facility]; Protocol Last Admin: 07/24/18 10:13 Dose: 5 mg Aspirin (Aspirin Chewable) 81 mg PO DAILY [facility]; Protocol Last Admin: 07/24/18 10:10 Dose: 81 mg Atenolol (Tenormin) 25 mg PO DAILY [facility]; Protocol Last Admin: 07/24/18 10:14 Dose: 25 mg Cephalexin Monohydrate (Keflex) 500 mg PO Q8 [facility]; Protocol Last Admin: 07/24/18 05:46 Dose: 500 mg Clopidogrel Bisulfate (Plavix) 75 mg PO DAILY [facility]; Protocol Last Admin: 07/24/18 10:14 Dose: 75 mg Dorzolamide/Timolol (Cosopt 2%-0.5% Opht) 0 drop OU DAILY [facility]; Protocol Last Admin: 07/24/18 10:11 Dose: 1 drop Glipizide (Glucotrol Xl) 10 mg PO 0800 [facility]; Protocol Last Admin: 07/24/18 08:00 Dose: 10 mg Insulin Human Regular (Humulin R Low) 0 units SC ACHS [facility]; Protocol Last Admin: 07/24/18 12:29 Dose: 2 units Lactic Acid (Lac-Hydrin 12% Cream (140 G)) 0 ea TOP DAILY [facility]; Protocol Losartan Potassium (Cozaar) 100 mg PO DAILY [facility]; Protocol Last Admin: 07/24/18 10:11 Dose: 100 mg Morphine Sulfate (Morphine) 2 mg IVP Q4H [facility]; Protocol PRN Reason: Pain, moderate (4-7) Last Admin: 07/24/18 05:46 Dose: 2 mg Polyethylene Glycol (Miralax) 17 gm PO BID [facility]; Protocol Last Admin: 07/24/18 10:12 Dose: 17 gm Sitagliptin Phosphate (Januvia) 100 mg PO DAILY [facility]; Protocol Last Admin: 07/24/18 10:12 Dose: 100 mg - Constitutional Appears: Non-toxic, No Acute Distress - Head Exam Head Exam: ATRAUMATIC, NORMOCEPHALIC - Extremities Exam Additional comments: B/L lower extremity exam: VASC: DP and PT non-palpable bilaterally, CFT delayed, TG warm to cool, no edema noted ORTHO: significant pain on palpation to the wound, and pain with 4th and 5th digit ranges of motion NEURO: grossly intact, protective sensation diminished DERM: 2 cm X 1 cm wound noted to the lateral aspect of the right 4th digit with 100% necrotic base, mild serous drainage today, no probe to bone, no malodor, no tunneling or tracking - Neurological Exam Neurological Exam: Alert, Awake Assessment and Plan - Assessment and Plan (Free Text) Assessment: 83 year old female patient with right 4th digit ischemic ulcer, stable Plan: Patient seen and evaluated at bedside Discussed with attending, Dr. Rice ESR 24 Vascular surgery on board; recs appreciated Foot x-ray reviewed; no osseous abnormalities noted Wound culture; Staph aureus LE CT take; No CT evidence of acute osteomyelitis. No evidence of acute OM at this time. Blood culture; no growth Local wound care; DSD Continue IV abx per ID reccs No surgical intervention at this time Will continue to follow patient <Too Rice - Last Filed: 07/25/18 09:38> Objective - Vital Signs/Intake and Output Vital Signs (last 24 hours): Temp Pulse Resp BP Pulse Ox 98 F 78 18 132/68 98 07/24/18 16:00 07/24/18 16:00 07/24/18 16:00 07/24/18 16:00 07/24/18 16:00 - Medications Medications: Current Medications Amlodipine Besylate (Norvasc) 5 mg PO DAILY [facility]; Protocol Last Admin: 07/24/18 10:13 Dose: 5 mg Aspirin (Aspirin Chewable) 81 mg PO DAILY [facility]; Protocol Last Admin: 07/24/18 10:10 Dose: 81 mg Atenolol (Tenormin) 25 mg PO DAILY [facility]; Protocol Last Admin: 07/24/18 10:14 Dose: 25 mg Cephalexin Monohydrate (Keflex) 500 mg PO Q8 [facility]; Protocol Last Admin: 07/25/18 05:16 Dose: 500 mg Clopidogrel Bisulfate (Plavix) 75 mg PO DAILY [facility]; Protocol Last Admin: 07/24/18 10:14 Dose: 75 mg Dorzolamide/Timolol (Cosopt 2%-0.5% Opht) 0 drop OU DAILY [facility]; Protocol Last Admin: 07/24/18 10:11 Dose: 1 drop Glipizide (Glucotrol Xl) 10 mg PO 0800 [facility]; Protocol Last Admin: 07/25/18 08:24 Dose: 10 mg Insulin Human Regular (Humulin R Low) 0 units SC ACHS [facility]; Protocol Last Admin: 07/25/18 06:33 Dose: Not Given Lactic Acid (Lac-Hydrin 12% Cream (140 G)) 0 ea TOP DAILY [facility]; Protocol Last Admin: 07/24/18 17:30 Dose: Not Given Losartan Potassium (Cozaar) 100 mg PO DAILY [facility]; Protocol Last Admin: 07/24/18 10:11 Dose: 100 mg Morphine Sulfate (Morphine) 2 mg IVP Q4H PRN; Protocol PRN Reason: Pain, moderate (4-7) Last Admin: 07/24/18 21:15 Dose: 2 mg Polyethylene Glycol (Miralax) 17 gm PO BID [facility]; Protocol Last Admin: 07/24/18 17:31 Dose: 17 gm Sitagliptin Phosphate (Januvia) 100 mg PO DAILY [facility]; Protocol Last Admin: 07/24/18 10:12 Dose: 100 mg Attending/Attestation - Attestation I have personally seen and examined this patient.: Yes I have fully participated in the care of the patient.: Yes I have reviewed all pertinent clinical information, including history, physical exam and plan: Yes
--- NOTE | 2018-07-24 14:38 | PN ---
DATE: 07/24/2018 SUBJECTIVE: An 83-year-old female admitted to the hospital with left fourth toe cellulitis, possibly early gangrene. The patient is refusing surgery at this point. Her circulation has improved. She has less cellulitis of the foot and less red streaking up the left leg. She still has tenderness, but less than previous. She is tolerating her antibiotics well. PHYSICAL EXAMINATION: VITAL SIGNS: Her vital signs are stable. She is afebrile. ASSESSMENT AND PLAN: The patient was seen with her daughter. Plan is to continue intravenous antibiotics, local wound care, and consideration for possible amputation. William Yeh MD
[2018-07-24] MEDS: Ammonium Lactate 12% Cream (140 g) TOP SCH (17:30)
--- NOTE | 2018-07-25 02:41 | CON ---
DATE: 07/24/2018 LOCATION: The patient is seen in Transitional Care, in room 303. CHIEF COMPLAINT: Foot infection times several days. HISTORY OF PRESENT ILLNESS: This is an 83-year-old female with diabetes mellitus, GERD, hypertension, high cholesterol, left eye cataract, history of small bowel obstruction, history of cerebrovascular accident, who has history of pacemaker. left eye surgery, tonsillectomy, and hysterectomy. THE PATIENT IS ALLERGIC TO IODINE. She is admitted with left foot cellulitis. The patient was managed and now transferred to transitional care for further treatment. REVIEW OF SYSTEMS: Twelve-point review systems is performed. PAST MEDICAL HISTORY: Significant for diabetes, GERD, hypertension, high cholesterol, left eye cataract, small bowel obstructions and cerebrovascular accident. PAST SURGICAL HISTORY: Significant for a pacemaker, left eye surgery, hysterectomy, and tonsillectomy. ALLERGIES: THE PATIENT IS ALLERGIC TO IODINE. PHYSICAL EXAMINATION: VITAL SIGNS: Temperature is 98, blood pressure is 130/60, respiratory rate is 18, and a heart rate of 71. HEENT: Unremarkable. NECK: Supple. LUNGS: Have decreased breath sounds. HEART: Normal S1 and S2. ABDOMEN: Soft and nontender. LABORATORY DATA: Reveals a white count of 10,000, hemoglobin of 13, and platelets of 276. Sed rate is 24. Creatinine is 1.1. C-reactive protein 7.5. Urinalysis noted. Foot culture has sensitive Staphylococcus aureus. The patient also had a CAT scan which was negative. ASSESSMENT AND PLAN: An 83-year-old with left fourth toe with a sensitive Staphylococcus aureus. Negative CAT scan for osteomyelitis. Would complete a short course of , currently on p.o. Keflex. Would complete five to seven days of antibiotics. Local wound care. Valeriano Ann MD
[2018-07-25] MEDS: Insulin Reg-LOW-Coverage SC SCH ×4 (06:33→22:57)
[2018-07-25] MEDS: GlipiZIDE 10 mg SR Tab PO SCH (08:24)
[2018-07-25] MEDS: Dorzolamide 2%/Timolol 0.5% 100 DROP/10 ML BOTTLE OU SCH (10:21)
[2018-07-25] MEDS: Ammonium Lactate 12% Cream (140 g) TOP SCH (10:22)
[2018-07-25] MEDS: POLYETHYLENE GLYCOL 3350 17 GM/Dose PACKET PO SCH ×3 (10:23→17:33)
--- NOTE | 2018-07-25 11:22 | PN ---
DATE: 07/25/2018 SUBJECTIVE: An 83-year-old female with cellulitis and small diabetic ulcer of the lateral aspect on the left fourth toe. The patient has decreased pain today. She had decreased erythema, decreased swelling. PHYSICAL EXAMINATION: VITAL SIGNS: She is afebrile. Vital signs are stable. PLAN: To continue IV antibiotics and physical therapy. William Yeh MD
[2018-07-25] MEDS: Morphine 2 mg/ml ISec IVP PRN ×3 (11:27→21:20)
--- NOTE | 2018-07-25 11:37 | PN ---
DATE: 07/25/2018 SUBJECTIVE: The patient is in bed, in no acute distress, nontoxic. The patient is comfortable and seen awake and alert. OBJECTIVE: VITAL SIGNS: Temperature of 98, blood pressure is 130/70, respiratory rate of 18. HEENT: Unremarkable. NECK: Supple. LUNGS: Have decreased breath sounds. HEART: Normal S1 and S2. ABDOMEN: Soft. LABORATORY EXAMINATION: Reveals the patient's labs are reviewed. REVIEW OF ORDERS: Reveals the patient to be on p.o. Keflex. ASSESSMENT AND PLAN: The patient is an 83-year-old female with a left fifth toe sensitive staph aureus cellulitis. CAT scan is negative for osteomyelitis, on Keflex currently, would complete 5-7 days of antibiotics. Valeriano Ann MD
--- NOTE | 2018-07-25 12:34 | CP.PCM.PN ---
<Jillian Qureshi - Last Filed: 07/25/18 12:34> Subjective - Date & Time of Evaluation Date of Evaluation: 07/25/18 Time of Evaluation: 12:32 - Subjective Subjective: Podiatry consult note: Dr. Cade Patient seen and evaluated this morning in TCU for R 4th digit ulceration. Patient resting comfortably and in NAD. She admits to pain with movement of her right 4th toe. Denies nausea/vomiting/fever/shortness of breath/chest pa in/chills. Objective - Vital Signs/Intake and Output Vital Signs (last 24 hours): Temp Pulse Resp BP Pulse Ox 98 F 66 18 130/72 98 07/24/18 16:00 07/25/18 10:23 07/24/18 16:00 07/25/18 10:23 07/24/18 16:00 - Medications Medications: Current Medications Amlodipine Besylate (Norvasc) 5 mg PO DAILY [facility]; Protocol Last Admin: 07/25/18 10:23 Dose: 5 mg Aspirin (Aspirin Chewable) 81 mg PO DAILY [facility]; Protocol Last Admin: 07/25/18 10:21 Dose: 81 mg Atenolol (Tenormin) 25 mg PO DAILY [facility]; Protocol Last Admin: 07/25/18 10:23 Dose: 25 mg Cephalexin Monohydrate (Keflex) 500 mg PO Q8 [facility]; Protocol Last Admin: 07/25/18 05:16 Dose: 500 mg Clopidogrel Bisulfate (Plavix) 75 mg PO DAILY [facility]; Protocol Last Admin: 07/25/18 10:23 Dose: 75 mg Dorzolamide/Timolol (Cosopt 2%-0.5% Opht) 0 drop OU DAILY [facility]; Protocol Last Admin: 07/25/18 10:21 Dose: 1 drop Glipizide (Glucotrol Xl) 10 mg PO 0800 [facility]; Protocol Last Admin: 07/25/18 08:24 Dose: 10 mg Insulin Human Regular (Humulin R Low) 0 units SC ACHS [facility]; Protocol Last Admin: 07/25/18 12:21 Dose: 3 units Lactic Acid (Lac-Hydrin 12% Cream (140 G)) 0 ea TOP DAILY [facility]; Protocol Last Admin: 07/25/18 10:22 Dose: 1 dose Losartan Potassium (Cozaar) 100 mg PO DAILY [facility]; Protocol Last Admin: 07/25/18 10:22 Dose: 100 mg Morphine Sulfate (Morphine) 2 mg IVP Q4H PRN; Protocol PRN Reason: Pain, moderate (4-7) Last Admin: 07/25/18 11:27 Dose: 2 mg Polyethylene Glycol (Miralax) 17 gm PO BID [facility]; Protocol Last Admin: 07/25/18 11:00 Dose: 17 gm Sitagliptin Phosphate (Januvia) 100 mg PO DAILY [facility]; Protocol Last Admin: 07/25/18 10:22 Dose: 100 mg - Constitutional Appears: Non-toxic, No Acute Distress - Head Exam Head Exam: ATRAUMATIC, NORMOCEPHALIC - Eye Exam Eye Exam: Normal appearance - Extremities Exam Additional comments: B/L lower extremity exam: VASC: DP and PT non-palpable bilaterally, CFT delayed, TG warm to cool, no edema noted ORTHO: significant pain on palpation to the wound, and pain with 4th and 5th digit ranges of motion NEURO: grossly intact, protective sensation diminished DERM: 2 cm X 1 cm wound noted to the lateral aspect of the right 4th digit with 100% necrotic base, mild serous drainage today, no probe to bone, no malodor, no tunneling or tracking - Neurological Exam Neurological Exam: Alert, Awake, Oriented x3 - Psychiatric Exam Psychiatric exam: Normal Affect, Normal Mood Assessment and Plan - Assessment and Plan (Free Text) Assessment: 83 year old female patient with right 4th digit ischemic ulcer; stable, no intervention at this time Plan: Patient seen and evaluated at bedside with attending, Dr. Cade Vascular surgery on board; recs appreciated Foot x-ray reviewed; no osseous abnormalities noted Wound culture; Staph aureus LE CT take; No CT evidence of acute osteomyelitis. No evidence of acute OM at this time. Blood culture; no growth Local wound care; bactroban, DSD Continue IV abx per ID reccs No surgical intervention at this time <Cady Cade - Last Filed: 07/28/18 19:34> Objective - Vital Signs/Intake and Output Vital Signs (last 24 hours): Temp Pulse Resp BP Pulse Ox 97.9 F 65 18 145/70 96 07/27/18 16:00 07/28/18 09:02 07/27/18 16:00 07/28/18 09:02 07/27/18 16:00 - Medications Medications: Current Medications Amlodipine Besylate (Norvasc) 5 mg PO DAILY [facility]; Protocol Last Admin: 07/28/18 09:02 Dose: 5 mg Aspirin (Aspirin Chewable) 81 mg PO 0800 [facility]; Protocol Atenolol (Tenormin) 25 mg PO DAILY [facility]; Protocol Last Admin: 07/28/18 09:02 Dose: 25 mg Cephalexin Monohydrate (Keflex) 500 mg PO Q8 [facility]; Protocol Last Admin: 07/28/18 13:54 Dose: 500 mg Clopidogrel Bisulfate (Plavix) 75 mg PO DAILY [facility]; Protocol Last Admin: 07/28/18 09:02 Dose: 75 mg Dorzolamide/Timolol (Cosopt 2%-0.5% Opht) 0 drop OU DAILY [facility]; Protocol Last Admin: 07/28/18 09:01 Dose: 1 drop Glipizide (Glucotrol Xl) 10 mg PO 0800 [facility]; Protocol Last Admin: 07/28/18 07:49 Dose: 10 mg Insulin Human Regular (Humulin R Low) 0 units SC ACHS [facility]; Protocol Last Admin: 07/28/18 17:29 Dose: Not Given Lactic Acid (Lac-Hydrin 12% Cream (140 G)) 0 ea TOP DAILY [facility]; Protocol Last Admin: 07/28/18 09:01 Dose: 1 dose Losartan Potassium (Cozaar) 100 mg PO DAILY [facility]; Protocol Last Admin: 07/28/18 09:01 Dose: 100 mg Morphine Sulfate (Morphine) 2 mg IVP Q4H PRN; Protocol PRN Reason: Pain, moderate (4-7) Last Admin: 07/28/18 17:27 Dose: 2 mg Polyethylene Glycol (Miralax) 17 gm PO BID [facility]; Protocol Last Admin: 07/28/18 17:28 Dose: 17 gm Sitagliptin Phosphate (Januvia) 100 mg PO DAILY [facility]; Protocol Last Admin: 07/28/18 09:01 Dose: 100 mg Attending/Attestation - Attestation I have personally seen and examined this patient.: Yes I have fully participated in the care of the patient.: Yes I have reviewed all pertinent clinical information, including history, physical exam and plan: Yes
[2018-07-26] MEDS: Morphine 2 mg/ml ISec IVP PRN ×3 (05:01→17:35)
[2018-07-26] MEDS: Insulin Reg-LOW-Coverage SC SCH ×5 (06:37→21:19)
[2018-07-26] MEDS: GlipiZIDE 10 mg SR Tab PO SCH (07:51)
--- NOTE | 2018-07-26 09:11 | CP.PCM.PN ---
<Michelle Westbrook - Last Filed: 07/26/18 11:36> Subjective - Date & Time of Evaluation Date of Evaluation: 07/26/18 Time of Evaluation: 07:45 - Subjective Subjective: IM Resident progress note for Dr. Roca's service Patient complained of foot pain overnight, states she was giving morphine with some relief. Patient states she's other gill doing better. Denies cp, sob, no fever or chills. Tolerating po. Objective - Vital Signs/Intake and Output Vital Signs (last 24 hours): Temp Pulse Resp BP Pulse Ox 98.5 F 66 18 130/72 98 07/25/18 10:00 07/25/18 10:23 07/25/18 10:00 07/25/18 10:23 07/25/18 10:00 - Medications Medications: Current Medications Amlodipine Besylate (Norvasc) 5 mg PO DAILY [facility]; Protocol Last Admin: 07/25/18 10:23 Dose: 5 mg Aspirin (Aspirin Chewable) 81 mg PO DAILY [facility]; Protocol Last Admin: 07/26/18 07:52 Dose: 81 mg Atenolol (Tenormin) 25 mg PO DAILY [facility]; Protocol Last Admin: 07/25/18 10:23 Dose: 25 mg Cephalexin Monohydrate (Keflex) 500 mg PO Q8 [facility]; Protocol Last Admin: 07/26/18 05:01 Dose: 500 mg Clopidogrel Bisulfate (Plavix) 75 mg PO DAILY [facility]; Protocol Last Admin: 07/25/18 10:23 Dose: 75 mg Dorzolamide/Timolol (Cosopt 2%-0.5% Opht) 0 drop OU DAILY [facility]; Protocol Last Admin: 07/25/18 10:21 Dose: 1 drop Glipizide (Glucotrol Xl) 10 mg PO 0800 [facility]; Protocol Last Admin: 07/26/18 07:51 Dose: 10 mg Insulin Human Regular (Humulin R Low) 0 units SC ACHS [facility]; Protocol Last Admin: 07/26/18 06:37 Dose: Not Given Lactic Acid (Lac-Hydrin 12% Cream (140 G)) 0 ea TOP DAILY [facility]; Protocol Last Admin: 07/25/18 10:22 Dose: 1 dose Losartan Potassium (Cozaar) 100 mg PO DAILY [facility]; Protocol Last Admin: 03/14/19 10:22 Dose: 100 mg Morphine Sulfate (Morphine) 2 mg IVP Q4H PRN; Protocol PRN Reason: Pain, moderate (4-7) Last Admin: 07/26/18 05:01 Dose: 2 mg Polyethylene Glycol (Miralax) 17 gm PO BID [facility]; Protocol Last Admin: 07/25/18 17:33 Dose: Not Given Sitagliptin Phosphate (Januvia) 100 mg PO DAILY [facility]; Protocol Last Admin: 07/25/18 10:22 Dose: 100 mg - Constitutional Appears: No Acute Distress - Head Exam Head Exam: ATRAUMATIC, NORMAL INSPECTION, NORMOCEPHALIC - Eye Exam Eye Exam: EOMI, Normal appearance, PERRL. absent: Scleral icterus Pupil Exam: NORMAL ACCOMODATION - ENT Exam ENT Exam: Mucous Membranes Moist - Neck Exam Neck Exam: Normal Inspection - Respiratory Exam Respiratory Exam: Clear to Ausculation Bilateral, NORMAL BREATHING PATTERN. absent: Rales, Rhonchi, Wheezes, Respiratory Distress, Stridor - Cardiovascular Exam Cardiovascular Exam: REGULAR RHYTHM, RRR, +S1, +S2. absent: Bradycardia, Tachycardia, Diastolic murmur, Gallop, Irregular Rhythm, JVD, Rubs, Murmur - GI/Abdominal Exam GI & Abdominal Exam: Soft, Normal Bowel Sounds. absent: Distended, Firm, Gu arding, Rigid, Tenderness, Hernia, Hyperactive Bowel Sounds, Organomegaly, Rebound - Extremities Exam Extremities Exam: absent: Pedal Edema - Back Exam Back Exam: NORMAL INSPECTION - Neurological Exam Neurological Exam: Alert, Awake, Oriented x3 - Psychiatric Exam Psychiatric exam: Normal Affect, Normal Mood - Skin Skin Exam: Warm Additional comments: Left 4th toes with less than a cm superficial ulcer, no draining, with mild surrounding erythema. Mild edema. Assessment and Plan - Assessment and Plan (Free Text) Assessment: 1- Left 4th toe with senstitive staphylococcus aureus diabetic foot ulcer and cullulitis 2- H/O CVA 3- HTN 4- NIDDM 5- CLL 6- Anemia 7- PVD 8- Constipation Plan: Patient had CT and x-ray revealing no osteomyolitis. Patient didn't get MRI due to pacemaker. Patient completed a course of IV teflora, now on po Keflex. Podiatry is following for wound care. Patient is on Cozaar, Norvasc and atenolol for htn, on ASA and plavix for stroke prevention, On ISS, januvia and glipizide for DM, miralalx for constipation, and morphine prn for pain. On carb consistent diet. Patient to continue with PT in tcu. Patient seen, examined and case discussed with Dr. Roca. <Wilmar Roca - Last Filed: 07/26/18 19:58> Objective - Vital Signs/Intake and Output Vital Signs (last 24 hours): Temp Pulse Resp BP Pulse Ox 98.1 F 79 18 122/67 96 07/26/18 16:00 07/26/18 16:40 07/26/18 16:00 07/26/18 16:00 07/26/18 16:40 - Medications Medications: Current Medications Amlodipine Besylate (Norvasc) 5 mg PO DAILY [facility]; Protocol Last Admin: 07/26/18 09:55 Dose: Not Given Aspirin (Aspirin Chewable) 81 mg PO DAILY [facility]; Protocol Last Admin: 07/26/18 09:25 Dose: Not Given Atenolol (Tenormin) 25 mg PO DAILY [facility]; Protocol Last Admin: 07/26/18 09:58 Dose: Not Given Cephalexin Monohydrate (Keflex) 500 mg PO Q8 [facility]; Protocol Last Admin: 07/26/18 13:43 Dose: 500 mg Clopidogrel Bisulfate (Plavix) 75 mg PO DAILY [facility]; Protocol Last Admin: 07/26/18 09:56 Dose: 75 mg Dorzolamide/Timolol (Cosopt 2%-0.5% Opht) 0 drop OU DAILY [facility]; Protocol Last Admin: 07/26/18 09:59 Dose: 1 drop Glipizide (Glucotrol Xl) 10 mg PO 0800 [facility]; Protocol Last Admin: 07/26/18 07:51 Dose: 10 mg Insulin Human Regular (Humulin R Low) 0 units SC ACHS [facility]; Protocol Last Admin: 07/26/18 17:14 Dose: 1 units Lactic Acid (Lac-Hydrin 12% Cream (140 G)) 0 ea TOP DAILY [facility]; Protocol Last Admin: 07/26/18 09:58 Dose: 1 dose Losartan Potassium (Cozaar) 100 mg PO DAILY [facility]; Protocol Last Admin: 07/26/18 10:00 Dose: Not Given Morphine Sulfate (Morphine) 2 mg IVP Q4H PRN; Protocol PRN Reason: Pain, moderate (4-7) Last Admin: 07/26/18 17:35 Dose: 2 mg Polyethylene Glycol (Miralax) 17 gm PO BID [facility]; Protocol Last Admin: 07/26/18 17:16 Dose: 17 gm Sitagliptin Phosphate (Januvia) 100 mg PO DAILY [facility]; Protocol Last Admin: 07/26/18 10:01 Dose: 100 mg Assessment and Plan - Assessment and Plan (Free Text) Plan: Pt was seen and examined. I agree with the note of the medical interpreter. I have reviewed the medications and the labs. I have gone over the plan of care with the resident.
[2018-07-26] MEDS: Ammonium Lactate 12% Cream (140 g) TOP SCH (09:58)
[2018-07-26] MEDS: POLYETHYLENE GLYCOL 3350 17 GM/Dose PACKET PO SCH ×2 (09:58→17:16)
[2018-07-26] MEDS: Dorzolamide 2%/Timolol 0.5% 100 DROP/10 ML BOTTLE OU SCH (09:59)
--- NOTE | 2018-07-26 12:28 | CP.PCM.PN ---
<Jillian Qureshi - Last Filed: 07/26/18 12:25> Subjective - Date & Time of Evaluation Date of Evaluation: 07/26/18 Time of Evaluation: 12:25 - Subjective Subjective: Podiatry consult note: Dr. Rice Patient seen and evaluated this morning in TCU for R 4th digit ulceration. Patient reports pain to 4th digit with movement and is discouraged to participate in physical therapy secondary to the pain. Denies nausea/vomiting/fever/shortness of breath/chest pain/chills. Objective - Vital Signs/Intake and Output Vital Signs (last 24 hours): Temp Pulse Resp BP Pulse Ox 98.5 F 66 18 114/48 L 98 07/25/18 10:00 07/25/18 10:23 07/25/18 10:00 07/26/18 09:55 07/25/18 10:00 - Medications Medications: Current Medications Amlodipine Besylate (Norvasc) 5 mg PO DAILY [facility]; Protocol Last Admin: 07/26/18 09:55 Dose: Not Given Aspirin (Aspirin Chewable) 81 mg PO DAILY [facility]; Protocol Last Admin: 07/26/18 09:25 Dose: Not Given Atenolol (Tenormin) 25 mg PO DAILY [facility]; Protocol Last Admin: 07/26/18 09:58 Dose: Not Given Cephalexin Monohydrate (Keflex) 500 mg PO Q8 [facility]; Protocol Last Admin: 07/26/18 05:01 Dose: 500 mg Clopidogrel Bisulfate (Plavix) 75 mg PO DAILY [facility]; Protocol Last Admin: 07/26/18 09:56 Dose: 75 mg Dorzolamide/Timolol (Cosopt 2%-0.5% Opht) 0 drop OU DAILY [facility]; Protocol Last Admin: 07/26/18 09:59 Dose: 1 drop Glipizide (Glucotrol Xl) 10 mg PO 0800 [facility]; Protocol Last Admin: 07/26/18 07:51 Dose: 10 mg Insulin Human Regular (Humulin R Low) 0 units SC ACHS [facility]; Protocol Last Admin: 07/26/18 06:37 Dose: Not Given Lactic Acid (Lac-Hydrin 12% Cream (140 G)) 0 ea TOP DAILY [facility]; Protocol Last Admin: 07/26/18 09:58 Dose: 1 dose Losartan Potassium (Cozaar) 100 mg PO DAILY [facility]; Protocol Last Admin: 07/26/18 10:00 Dose: Not Given Morphine Sulfate (Morphine) 2 mg IVP Q4H PRN; Protocol PRN Reason: Pain, moderate (4-7) Last Admin: 07/26/18 09:53 Dose: 2 mg Polyethylene Glycol (Miralax) 17 gm PO BID [facility]; Protocol Last Admin: 07/26/18 09:58 Dose: 17 gm Sitagliptin Phosphate (Januvia) 100 mg PO DAILY [facility]; Protocol Last Admin: 07/26/18 10:01 Dose: 100 mg - Constitutional Appears: Non-toxic, No Acute Distress - Head Exam Head Exam: ATRAUMATIC, NORMOCEPHALIC - Extremities Exam Additional comments: B/L lower extremity exam: VASC: DP and PT non-palpable bilaterally, CFT delayed, TG warm to cool, no edema noted ORTHO: significant pain on palpation to the wound, and pain with 4th and 5th digit ranges of motion NEURO: grossly intact, protective sensation diminished DERM: 2 cm X 1 cm wound noted to the lateral aspect of the right 4th digit with 100% necrotic base, mild serous drainage today, no probe to bone, no malodor, no tunneling or tracking - Neurological Exam Neurological Exam: Alert, Awake, Oriented x3 - Psychiatric Exam Psychiatric exam: Normal Affect, Normal Mood Assessment and Plan - Assessment and Plan (Free Text) Assessment: 83F patient with right 4th digit ischemic ulcer; stable, no intervention at this time Plan: Patient seen and evaluated at bedside with attending, Dr. Rice Foot x-ray reviewed; no osseous abnormalities noted Wound culture; Staph aureus LE CT take; No CT evidence of acute osteomyelitis. No evidence of acute OM at this time. Blood culture; no growth Local wound care; bactroban, DSD Continue abx per ID reccs No surgical intervention at this time <Too Rice - Last Filed: 07/26/18 18:25> Objective - Vital Signs/Intake and Output Vital Signs (last 24 hours): Temp Pulse Resp BP Pulse Ox 98.1 F 79 18 122/67 96 07/26/18 16:00 07/26/18 16:40 07/26/18 16:00 07/26/18 16:00 07/26/18 16:40 - Medications Medications: Current Medications Amlodipine Besylate (Norvasc) 5 mg PO DAILY [facility]; Protocol Last Admin: 07/26/18 09:55 Dose: Not Given Aspirin (Aspirin Chewable) 81 mg PO DAILY [facility]; Protocol Last Admin: 07/26/18 09:25 Dose: Not Given Atenolol (Tenormin) 25 mg PO DAILY [facility]; Protocol Last Admin: 07/26/18 09:58 Dose: Not Given Cephalexin Monohydrate (Keflex) 500 mg PO Q8 [facility]; Protocol Last Admin: 07/26/18 13:43 Dose: 500 mg Clopidogrel Bisulfate (Plavix) 75 mg PO DAILY [facility]; Protocol Last Admin: 07/26/18 09:56 Dose: 75 mg Dorzolamide/Timolol (Cosopt 2%-0.5% Opht) 0 drop OU DAILY [facility]; Protocol Last Admin: 07/26/18 09:59 Dose: 1 drop Glipizide (Glucotrol Xl) 10 mg PO 0800 [facility]; Protocol Last Admin: 07/26/18 07:51 Dose: 10 mg Insulin Human Regular (Humulin R Low) 0 units SC ACHS [facility]; Protocol Last Admin: 07/26/18 17:14 Dose: 1 units Lactic Acid (Lac-Hydrin 12% Cream (140 G)) 0 ea TOP DAILY [facility]; Protocol Last Admin: 07/26/18 09:58 Dose: 1 dose Losartan Potassium (Cozaar) 100 mg PO DAILY [facility]; Protocol Last Admin: 07/26/18 10:00 Dose: Not Given Morphine Sulfate (Morphine) 2 mg IVP Q4H PRN; Protocol PRN Reason: Pain, moderate (4-7) Last Admin: 07/26/18 17:35 Dose: 2 mg Polyethylene Glycol (Miralax) 17 gm PO BID [facility]; Protocol Last Admin: 07/26/18 17:16 Dose: 17 gm Sitagliptin Phosphate (Januvia) 100 mg PO DAILY [facility]; Protocol Last Admin: 07/26/18 10:01 Dose: 100 mg Attending/Attestation - Attestation I have personally seen and examined this patient.: Yes I have fully participated in the care of the patient.: Yes I have reviewed all pertinent clinical information, including history, physical exam and plan: Yes
--- NOTE | 2018-07-26 23:23 | PN ---
DATE: 07/26/2018 SUBJECTIVE: The patient is in bed, in no acute distress, nontoxic. She was seen early this morning in room 303. PHYSICAL EXAMINATION: VITAL SIGNS: Temperature is 98, blood pressure is 120/50, respiratory rate of 18, heart rate of 66. HEENT: Unremarkable. NECK: Supple. LUNGS: Decreased breath sounds. HEART: Normal S1 and S2. ABDOMEN: Soft, nontender. LABORATORY DATA: Laboratory examination is reviewed. ASSESSMENT AND PLAN: This is an 83-year-old female with left fifth toe sensitive Staphylococcus aureus cellulitis and CAT scan is negative for osteomyelitis. Currently on Keflex. Would complete a short course of Keflex. We will discuss this with Podiatry. Valeriano Ann MD
--- NOTE | 2018-07-26 23:23 | DS ---
HOSPITAL COURSE: The patient was seen and examined. I do agree with the note of the medical observer. The patient has left fourth toe wound secondary to diabetic foot ulcer. She has hypertension. She has dyslipidemia. The patient is going to continue with local wound care. She is on Transitional Care Unit. She is on Glucotrol for diabetes. She is going to continue Januvia. The patient was seen and examined. I do agree with the note of the medical observer. I was involved with plan of care. She is going to continue on Keflex her antibiotics. She is on Norvasc for hypertension. She is going to continue with physical therapy. I did tell her to check pain medications if pain worsened. Wilmar Roca MD
[2018-07-27] MEDS: GlipiZIDE 10 mg SR Tab PO SCH (08:15)
[2018-07-27] MEDS: Insulin Reg-LOW-Coverage SC SCH ×4 (08:16→22:57)
--- NOTE | 2018-07-27 08:21 | CP.PCM.PN ---
<Michelle Westbrook - Last Filed: 07/27/18 10:45> Subjective - Date & Time of Evaluation Date of Evaluation: 07/27/18 Time of Evaluation: 09:10 - Subjective Subjective: IM Resident progress note for Dr. Roca's service, covering for Dr. Yeh Patient complaining of foot pain post wound care by podiatry. Otherwise no acute events. Denies cp, or sob. No diarrhea, nausea or vomiting. Objective - Vital Signs/Intake and Output Vital Signs (last 24 hours): Temp Pulse Resp BP Pulse Ox 98.1 F 71 20 138/75 98 07/27/18 06:00 07/27/18 06:00 07/27/18 06:00 07/27/18 06:00 07/27/18 06:00 - Medications Medications: Current Medications Amlodipine Besylate (Norvasc) 5 mg PO DAILY [facility]; Protocol Last Admin: 07/26/18 09:55 Dose: Not Given Aspirin (Aspirin Chewable) 81 mg PO DAILY [facility]; Protocol Last Admin: 07/26/18 09:25 Dose: Not Given Atenolol (Tenormin) 25 mg PO DAILY [facility]; Protocol Last Admin: 07/26/18 09:58 Dose: Not Given Cephalexin Monohydrate (Keflex) 500 mg PO Q8 [facility]; Protocol Last Admin: 07/27/18 05:28 Dose: 500 mg Clopidogrel Bisulfate (Plavix) 75 mg PO DAILY [facility]; Protocol Last Admin: 07/26/18 09:56 Dose: 75 mg Dorzolamide/Timolol (Cosopt 2%-0.5% Opht) 0 drop OU DAILY [facility]; Protocol Last Admin: 07/26/18 09:59 Dose: 1 drop Glipizide (Glucotrol Xl) 10 mg PO 0800 [facility]; Protocol Last Admin: 07/27/18 08:15 Dose: 10 mg Insulin Human Regular (Humulin R Low) 0 units SC ACHS [facility]; Protocol Last Admin: 07/27/18 08:16 Dose: 1 units Lactic Acid (Lac-Hydrin 12% Cream (140 G)) 0 ea TOP DAILY [facility]; Protocol Last Admin: 07/26/18 09:58 Dose: 1 dose Losartan Potassium (Cozaar) 100 mg PO DAILY [facility]; Protocol Last Admin: 07/26/18 10:00 Dose: Not Given Morphine Sulfate (Morphine) 2 mg IVP Q4H PRN; Protocol PRN Reason: Pain, moderate (4-7) Last Admin: 07/26/18 17:35 Dose: 2 mg Polyethylene Glycol (Miralax) 17 gm PO BID [facility] [place]; Protocol Last Admin: 07/26/18 17:16 Dose: 17 gm Sitagliptin Phosphate (Januvia) 100 mg PO DAILY [facility]; Protocol Last Admin: 07/26/18 10:01 Dose: 100 mg - Constitutional Appears: No Acute Distress, Chronically Ill - Head Exam Head Exam: ATRAUMATIC, NORMAL INSPECTION, NORMOCEPHALIC - Eye Exam Eye Exam: Normal appearance Pupil Exam: NORMAL ACCOMODATION - ENT Exam ENT Exam: Mucous Membranes Moist - Neck Exam Neck Exam: Normal Inspection - Respiratory Exam Respiratory Exam: Clear to Ausculation Bilateral, NORMAL BREATHING PATTERN. absent: Rales, Rhonchi, Wheezes, Respiratory Distress, Stridor - Cardiovascular Exam Cardiovascular Exam: REGULAR RHYTHM, RRR, +S1, +S2. absent: Gallop, JVD, Rubs - GI/Abdominal Exam GI & Abdominal Exam: Soft, Normal Bowel Sounds. absent: Distended, Firm, Guarding, Rigid, Tenderness, Rebound - Extremities Exam Extremities Exam: Tenderness. absent: Pedal Edema - Back Exam Back Exam: NORMAL INSPECTION - Neurological Exam Neurological Exam: Alert, Awake, Oriented x3 - Psychiatric Exam Psychiatric exam: Normal Affect, Normal Mood - Skin Skin Exam: Warm Additional comments: Left 4th toes with less than a cm superficial ulcer, no draining, with mild surrounding erythema. Mild edema. Assessment and Plan - Assessment and Plan (Free Text) Assessment: 1- Left 4th toe with senstitive staphylococcus aureus diabetic foot ulcer and cullulitis 2- H/O CVA 3- HTN 4- NIDDM 5- CLL 6- Anemia 7- PVD 8- Constipation Plan: Continue with morphine prn for pain. Patient had CT revealing no osteomyolitis. Patient completed a course of IV teflora, now on po Keflex. Podiatry is following for wound care. ID is also on the case. Continue with Cozaar, Norvasc and atenolol for htn, on ASA and plavix for stroke prevention. On ISS, januvia and glipizide for DM. On miralalx for constipation. On carbohydrate consistent diet. Patient to continue with PT in tcu. Patient seen, examined and case discussed with Dr. Roca. <Wilmar Roca - Last Filed: 07/27/18 18:58> Objective - Vital Signs/Intake and Output Vital Signs (last 24 hours): Temp Pulse Resp BP Pulse Ox 97.9 F 77 18 144/61 96 07/27/18 16:00 07/27/18 16:00 07/27/18 16:00 07/27/18 16:00 07/27/18 16:00 - Medications Medications: Current Medications Amlodipine Besylate (Norvasc) 5 mg PO DAILY [facility]; Protocol Last Admin: 07/27/18 09:00 Dose: 5 mg Aspirin (Aspirin Chewable) 81 mg PO DAILY [facility]; Protocol Last Admin: 07/27/18 09:00 Dose: 81 mg Atenolol (Tenormin) 25 mg PO DAILY [facility]; Protocol Last Admin: 07/27/18 09:00 Dose: 25 mg Cephalexin Monohydrate (Keflex) 500 mg PO Q8 [facility]; Protocol Last Admin: 07/27/18 13:17 Dose: 500 mg Clopidogrel Bisulfate (Plavix) 75 mg PO DAILY [facility]; Protocol Last Admin: 07/27/18 09:01 Dose: 75 mg Dorzolamide/Timolol (Cosopt 2%-0.5% Opht) 0 drop OU DAILY [facility]; Protocol Last Admin: 07/27/18 09:01 Dose: 1 drop Glipizide (Glucotrol Xl) 10 mg PO 0800 [facility]; Protocol Last Admin: 07/27/18 08:15 Dose: 10 mg Insulin Human Regular (Humulin R Low) 0 units SC ACHS [facility]; Protocol Last Admin: 07/27/18 17:28 Dose: Not Given Lactic Acid (Lac-Hydrin 12% Cream (140 G)) 0 ea TOP DAILY [facility]; Protocol Last Admin: 07/27/18 10:16 Dose: Not Given Losartan Potassium (Cozaar) 100 mg PO DAILY [facility]; Protocol Last Admin: 07/27/18 09:00 Dose: 100 mg Morphine Sulfate (Morphine) 2 mg IVP Q4H PRN; Protocol PRN Reason: Pain, moderate (4-7) Last Admin: 07/27/18 18:20 Dose: 2 mg Polyethylene Glycol (Miralax) 17 gm PO BID [facility]; Protocol Last Admin: 07/27/18 17:29 Dose: 17 gm Sitagliptin Phosphate (Januvia) 100 mg PO DAILY [facility]; Protocol Last Admin: 07/27/18 09:01 Dose: 100 mg Assessment and Plan - Assessment and Plan (Free Text) Plan: Pt seen and examined. I agree with the note of the medical technologist chief. I was involved in the plan of care.
[2018-07-27] MEDS: Morphine 2 mg/ml ISec IVP PRN ×3 (08:53→18:20)
[2018-07-27] MEDS: Dorzolamide 2%/Timolol 0.5% 100 DROP/10 ML BOTTLE OU SCH (09:01)
[2018-07-27] MEDS: POLYETHYLENE GLYCOL 3350 17 GM/Dose PACKET PO SCH ×2 (10:15→17:29)
[2018-07-27] MEDS: Ammonium Lactate 12% Cream (140 g) TOP SCH (10:16)
--- NOTE | 2018-07-27 13:32 | CP.PCM.PN ---
<Delaney Webb - Last Filed: 07/27/18 13:25> Subjective - Date & Time of Evaluation Date of Evaluation: 07/27/18 Time of Evaluation: 13:25 - Subjective Subjective: Podiatry Progress Note - Dr. Rice 83F seen and evaluated in TCU this AM for right 4th digit ulceration. Family present at bedside. No acute events overnight. Patient reports pain in 4th digit remains unchanged. Patient states she does not like the surgical shoes and is discouraged to ambulate. Denies nausea/vomiting/fever/shortness of breath/chest pain/chills. Objective - Vital Signs/Intake and Output Vital Signs (last 24 hours): Temp Pulse Resp BP Pulse Ox 98.4 F 81 20 176/78 H 98 07/27/18 10:00 07/27/18 10:00 07/27/18 10:00 07/27/18 10:00 07/27/18 10:00 - Medications Medications: Current Medications Amlodipine Besylate (Norvasc) 5 mg PO DAILY JEFFERY; Protocol Last Admin: 07/27/18 09:00 Dose: 5 mg Aspirin (Aspirin Chewable) 81 mg PO DAILY JEFFERY; Protocol Last Admin: 07/27/18 09:00 Dose: 81 mg Atenolol (Tenormin) 25 mg PO DAILY JEFFERY; Protocol Last Admin: 07/27/18 09:00 Dose: 25 mg Cephalexin Monohydrate (Keflex) 500 mg PO Q8 JEFFERY; Protocol Last Admin: 07/27/18 13:17 Dose: 500 mg Clopidogrel Bisulfate (Plavix) 75 mg PO DAILY [facility]FFERY; Protocol Last Admin: 07/27/18 09:01 Dose: 75 mg Dorzolamide/Timolol (Cosopt 2%-0.5% Opht) 0 drop OU DAILY JEFFERY; Protocol Last Admin: 07/27/18 09:01 Dose: 1 drop Glipizide (Glucotrol Xl) 10 mg PO 0800 JEFFERY; Protocol Last Admin: 07/27/18 08:15 Dose: 10 mg Insulin Human Regular (Humulin R Low) 0 units SC ACHS JEFFERY; Protocol Last Admin: 07/27/18 11:46 Dose: 1 units Lactic Acid (Lac-Hydrin 12% Cream (140 G)) 0 ea TOP DAILY JEFFERY; Protocol Last Admin: 03/16/19 10:16 Dose: Not Given Losartan Potassium (Cozaar) 100 mg PO DAILY [facility]; Protocol Last Admin: 07/27/18 09:00 Dose: 100 mg Morphine Sulfate (Morphine) 2 mg IVP Q4H PRN; Protocol PRN Reason: Pain, moderate (4-7) Last Admin: 07/27/18 13:20 Dose: 2 mg Polyethylene Glycol (Miralax) 17 gm PO BID JEFFERY; Protocol Last Admin: 07/27/18 10:15 Dose: Not Given Sitagliptin Phosphate (Januvia) 100 mg PO DAILY JEFFERY; Protocol Last Admin: 07/27/18 09:01 Dose: 100 mg - Constitutional Appears: Non-toxic, No Acute Distress - Extremities Exam Additional comments: B/L lower extremity exam: VASC: DP and PT non-palpable bilaterally, CFT delayed, TG warm to cool, no edema noted ORTHO: significant pain on palpation to the wound, and pain with 4th and 5th digit ranges of motion NEURO: grossly intact, protective sensation diminished DERM: 2 cm X 1 cm wound noted to the lateral aspect of the right 4th digit with 100% necrotic base, mild serous drainage today, no probe to bone, no malodor, no tunneling or tracking - Neurological Exam Neurological Exam: Alert, Awake, Oriented x3 - Psychiatric Exam Psychiatric exam: Normal Affect, Normal Mood Assessment and Plan - Assessment and Plan (Free Text) Assessment: 83F patient with right 4th digit ischemic ulcer; stable Plan: Patient seen and evaluated at bedside with attending, Dr. Rice Foot x-ray reviewed; no osseous abnormalities noted Wound culture; Staph aureus LE CT taken; No CT evidence of acute osteomyelitis. No evidence of acute OM at this time. Blood culture; no growth Continue local wound care; bactroban, DSD Continue abx per ID reccs Continue PT/OT Encourage ambulation No surgical intervention at this time Podiatry will continue to follow <Too Rice - Last Filed: 07/30/18 08:09> Objective - Vital Signs/Intake and Output Vital Signs (last 24 hours): Temp Pulse Resp BP Pulse Ox 98 F 68 18 149/68 96 07/29/18 16:00 07/29/18 16:25 07/29/18 16:00 07/29/18 16:00 07/29/18 16:25 - Medications Medications: Current Medications Amlodipine Besylate (Norvasc) 5 mg PO DAILY [facility]; Protocol Last Admin: 07/29/18 10:20 Dose: 5 mg Aspirin (Aspirin Chewable) 81 mg PO 0800 JEFFERY; Protocol Last Admin: 07/29/18 08:22 Dose: 81 mg Atenolol (Tenormin) 25 mg PO DAILY [facility]; Protocol Last Admin: 07/29/18 10:20 Dose: 25 mg Cephalexin Monohydrate (Keflex) 500 mg PO Q8 [facility]FF[facility]; Protocol Last Admin: 07/30/18 05:58 Dose: 500 mg Clopidogrel Bisulfate (Plavix) 75 mg PO DAILY [facility]; Protocol Last Admin: 07/29/18 10:20 Dose: 75 mg Dorzolamide/Timolol (Cosopt 2%-0.5% Opht) 0 drop OU DAILY [facility]; Protocol Last Admin: 07/29/18 10:19 Dose: 1 drop Glipizide (Glucotrol Xl) 10 mg PO 0800 [facility]FFERY; Protocol Last Admin: 07/29/18 08:23 Dose: 10 mg Insulin Human Regular (Humulin R Low) 0 units SC ACHS [facility]; Protocol Last Admin: 07/30/18 07:13 Dose: 1 units Lactic Acid (Lac-Hydrin 12% Cream (140 G)) 0 ea TOP DAILY [facility]; Protocol Last Admin: 07/29/18 10:19 Dose: 1 dose Losartan Potassium (Cozaar) 100 mg PO DAILY [facility]; Protocol Last Admin: 07/29/18 10:19 Dose: 100 mg Morphine Sulfate (Morphine) 2 mg IVP Q4H PRN; Protocol PRN Reason: Pain, moderate (4-7) Last Admin: 07/29/18 16:26 Dose: 2 mg Mupirocin (Bactroban Ointment) 0 gm TOP BID JEFFERY Last Admin: 07/29/18 17:20 Dose: Not Given Polyethylene Glycol (Miralax) 17 gm PO BID [facility]FFERY; Protocol Last Admin: 07/29/18 17:20 Dose: Not Given Sitagliptin Phosphate (Januvia) 100 mg PO DAILY [facility]; Protocol Last Admin: 07/29/18 10:19 Dose: 100 mg Attending/Attestation - Attestation I have personally seen and examined this patient.: Yes I have fully participated in the care of the patient.: Yes I have reviewed all pertinent clinical information, including history, physical exam and plan: Yes
--- NOTE | 2018-07-27 20:14 | PN ---
DATE: 07/27/2018 HOSPITAL COURSE: The patient was seen and examined, I do agree with the note of the emergency medical services coordinator. I was involved in the plan of care. The patient is getting local wound care. She has a fourth toe, that is a diabetic foot ulcer. The patient has a history of hypertension and diabetes. The patient has CLL. She is currently on her aspirin. She is on losartan for hypertension. She is on Glucotrol for diabetes. She is on Januvia for diabetes. She is going to continue Miralax for constipation. She is on Norvasc for hypertension. This is covered for Dr. Yeh. Wilmar Roca MD
--- NOTE | 2018-07-27 22:53 | PN ---
DATE: 07/27/2018 SUBJECTIVE: The patient is in bed, in no acute distress. PHYSICAL EXAMINATION: VITAL SIGNS: Temperature is 98, blood pressure is 140/60, respiratory rate is 20, heart rate is 77. HEENT: Unremarkable. NECK: Supple. LUNGS: Decreased breath sounds. HEART: Normal S1 and S2. ABDOMEN: Soft. Laboratory examination is noted. Examination of foot is noted. ASSESSMENT AND PLAN: An 83-year-old female who was seen early this morning in room 303 with left fifth toe sensitive Staphylococcus aureus cellulitis. CAT scan is negative for osteomyelitis; however, does have significant cellulitis. Healing is poor because of poor blood supply. Review of orders reveals the patient to be on Keflex. Valeriano Ann MD
[2018-07-28] MEDS: Insulin Reg-LOW-Coverage SC SCH ×4 (06:40→21:53)
[2018-07-28] MEDS: GlipiZIDE 10 mg SR Tab PO SCH (07:49)
[2018-07-28] MEDS: Morphine 2 mg/ml ISec IVP PRN ×3 (09:00→21:03)
[2018-07-28] MEDS: Dorzolamide 2%/Timolol 0.5% 100 DROP/10 ML BOTTLE OU SCH (09:01)
[2018-07-28] MEDS: Ammonium Lactate 12% Cream (140 g) TOP SCH (09:01)
[2018-07-28] MEDS: POLYETHYLENE GLYCOL 3350 17 GM/Dose PACKET PO SCH ×2 (09:02→17:28)
--- NOTE | 2018-07-28 13:06 | PN ---
DATE: 07/28/2018 SUBJECTIVE: The patient is in bed in no acute distress, nontoxic. OBJECTIVE: VITAL SIGNS: On exam, temperature is 97, blood pressure is 140/70, respiratory rate of 20, heart rate of 81. HEENT: Unremarkable. NECK: Supple. LUNGS: Have decreased breath sounds. HEART: Normal S1, S2. ABDOMEN: Soft, nontender. LABORATORY EXAMINATION: Noted. ASSESSMENT AND PLAN: This is an 83-year-old female seen in room 303 this morning with a sensitive Staphylococcus aureus cellulitis which is resolved. CT scan is negative for osteomyelitis. The patient has a poor blood supply and currently on Keflex, will complete a short course. Examination of the toe reveals the chronic changes today and the ulcer in the lateral aspect of that toe is still positive. Valeriano Ann MD
--- NOTE | 2018-07-29 01:12 | PN ---
DATE: 07/28/2018 SUBJECTIVE: [place] is an 83-year-old female with cellulitis of the foot, left foot fourth toe lateral ischemic ulcer, peripheral vascular disease, non-insulin dependant diabetes mellitus, history of CVA, peripheral vascular disease in the past, hypertension. The patient doing well with physical therapy and occupational therapy, and IV antibiotics. She does have some slight swelling, but no cellulitis of the foot. There is pain when she does physical therapy and there is no pain at rest. PLAN: Continue platelet inhibitors, IV antibiotics, and blood sugar control. William Yeh MD
[2018-07-29] MEDS: Insulin Reg-LOW-Coverage SC SCH ×4 (07:35→22:41)
[2018-07-29] MEDS: GlipiZIDE 10 mg SR Tab PO SCH (08:23)
[2018-07-29] MEDS: Dorzolamide 2%/Timolol 0.5% 100 DROP/10 ML BOTTLE OU SCH (10:19)
[2018-07-29] MEDS: Ammonium Lactate 12% Cream (140 g) TOP SCH (10:19)
[2018-07-29] MEDS: POLYETHYLENE GLYCOL 3350 17 GM/Dose PACKET PO SCH ×2 (10:19→17:20)
--- NOTE | 2018-07-29 10:47 | PN ---
DATE: 07/29/2018 SUBJECTIVE: This 83-year-old white female being treated for diabetic ischemic left foot, left fourth toe diabetic ischemic ulcer, on IV antibiotics, doing physical therapy, occupational therapy. She is on antiplatelet therapy. She is status post a stent. Vital signs are stable. She has minimal swelling, but no erythema and no warmth in the foot. She is afebrile. Continue physical therapy. Continue IV antibiotics. William Yeh MD
--- NOTE | 2018-07-29 11:27 | CP.PCM.PN ---
Subjective - Date & Time of Evaluation Date of Evaluation: 07/29/18 Time of Evaluation: 11:26 - Subjective Subjective: Podiatry progress note - Drs. Rice/Alyssia 83F seen and evaluated in TCU this AM with Dr. Cade for right 4th digit ulceration. No acute events overnight. Patient reports pain in 4th digit remains unchanged. Patient states she does not like the surgical shoes and is discouraged to ambulate. Denies nausea/vomiting/fever/shortness of breath/chest pain/chills. Objective - Vital Signs/Intake and Output Vital Signs (last 24 hours): Temp Pulse Resp BP Pulse Ox 97.9 F 63 18 134/72 96 07/27/18 16:00 07/29/18 10:20 07/27/18 16:00 07/29/18 10:20 07/27/18 16:00 - Medications Medications: Current Medications Amlodipine Besylate (Norvasc) 5 mg PO DAILY [facility]; Protocol Last Admin: 07/29/18 10:20 Dose: 5 mg Aspirin (Aspirin Chewable) 81 mg PO 0800 [facility]ERY; Protocol Last Admin: 07/29/18 08:22 Dose: 81 mg Atenolol (Tenormin) 25 mg PO DAILY [facility]ERY; Protocol Last Admin: 07/29/18 10:20 Dose: 25 mg Cephalexin Monohydrate (Keflex) 500 mg PO Q8 [facility]; Protocol Last Admin: 07/29/18 05:37 Dose: 500 mg Clopidogrel Bisulfate (Plavix) 75 mg PO DAILY [facility]; Protocol Last Admin: 07/29/18 10:20 Dose: 75 mg Dorzolamide/Timolol (Cosopt 2%-0.5% Opht) 0 drop OU DAILY [facility]; Protocol Last Admin: 07/29/18 10:19 Dose: 1 drop Glipizide (Glucotrol Xl) 10 mg PO 0800 [facility]; Protocol Last Admin: 07/29/18 08:23 Dose: 10 mg Insulin Human Regular (Humulin R Low) 0 units SC ACHS [facility]; Protocol Last Admin: 07/29/18 07:35 Dose: Not Given Lactic Acid (Lac-Hydrin 12% Cream (140 G)) 0 ea TOP DAILY [facility]; Protocol Last Admin: 07/29/18 10:19 Dose: 1 dose Losartan Potassium (Cozaar) 100 mg PO DAILY [facility]; Protocol Last Admin: 07/29/18 10:19 Dose: 100 mg Morphine Sulfate (Morphine) 2 mg IVP Q4H PRN; Protocol PRN Reason: Pain, moderate (4-7) Last Admin: 07/28/18 21:03 Dose: 2 mg Polyethylene Glycol (Miralax) 17 gm PO BID [facility]FFERY; Protocol Last Admin: 07/29/18 10:19 Dose: 17 gm Sitagliptin Phosphate (Januvia) 100 mg PO DAILY [facility]; Protocol Last Admin: 07/29/18 10:19 Dose: 100 mg - Constitutional Appears: Non-toxic - Head Exam Head Exam: ATRAUMATIC - Extremities Exam Additional comments: B/L lower extremity exam: VASC: DP and PT non-palpable bilaterally, CFT delayed, TG warm to cool, no edema noted ORTHO: significant pain on palpation to the wound, and pain with 4th and 5th dig it ranges of motion NEURO: grossly intact, protective sensation diminished DERM: 2 cm X 1 cm wound noted to the lateral aspect of the right 4th digit with 100% necrotic base, mild serous drainage today, no probe to bone, no malodor, no tunneling or tracking - Neurological Exam Neurological Exam: Alert, Awake, Oriented x3 - Psychiatric Exam Psychiatric exam: Normal Affect, Normal Mood Assessment and Plan - Assessment and Plan (Free Text) Assessment: 83F patient with right 4th digit ischemic ulcer; stable Plan: Patient seen and evaluated at bedside with Dr. Cade Foot x-ray reviewed; no osseous abnormalities noted Wound culture; Staph aureus LE CT taken; No CT evidence of acute osteomyelitis. No evidence of acute OM at this time. Blood culture; no growth Continue local wound care; bactroban, DSD Continue abx per ID reccs Continue PT/OT Encourage ambulation No surgical intervention at this time Podiatry will continue to follow
[2018-07-29] MEDS: Morphine 2 mg/ml ISec IVP PRN (16:26)
[2018-07-29] MEDS: Mupirocin 2% Ointment 15 GM TUBE TOP SCH (17:20)
[2018-07-30] MEDS: Insulin Reg-LOW-Coverage SC SCH ×4 (07:13→21:23)
[2018-07-30] MEDS: GlipiZIDE 10 mg SR Tab PO SCH (08:09)
--- NOTE | 2018-07-30 08:13 | PN ---
DATE: 07/29/2018 SUBJECTIVE: Patient is in bed in no acute distress, nontoxic. PHYSICAL EXAMINATION VITAL SIGNS: Temperature is 98, blood pressure is 140/60, respiratory rate 18. HEENT: Unremarkable. NECK: Supple. LUNGS: Have decreased breath sounds. HEART: Normal S1 and S2. ABDOMEN: Soft and nontender. LABORATORY DATA: Reviewed. Dr. Yeh's note is reviewed. Review of orders reveals the patient is on Keflex p.o. . ASSESSMENT AND PLAN: This is an 83-year-old female seen in room 303 this morning with a sensitive Staphylococcus aureus cellulitis that is resolving. CAT scan is negative for osteomyelitis. Patient's blood supply is poor and she is currently on p.o. Keflex. We will discontinue the antibiotics in the next 24 to 48 hours. Valeriano Ann MD
[2018-07-30] MEDS ORDERED: Oxycodone/Acetaminophen 5/325 mg Tab PO PRN (08:15)
[2018-07-30] MEDS: Mupirocin 2% Ointment 15 GM TUBE TOP SCH ×2 (09:34→17:10)
[2018-07-30] MEDS: Dorzolamide 2%/Timolol 0.5% 100 DROP/10 ML BOTTLE OU SCH (09:34)
[2018-07-30] MEDS: Ammonium Lactate 12% Cream (140 g) TOP SCH (09:35)
[2018-07-30] MEDS: POLYETHYLENE GLYCOL 3350 17 GM/Dose PACKET PO SCH ×2 (09:36→17:11)
--- NOTE | 2018-07-30 09:53 | PN ---
DATE: 07/30/2018 SUBJECTIVE: An 83-year-old female admitted with diabetic foot and ischemic foot infection and cellulitis. The patient is doing well on physical therapy and occupational therapy. Finished the course of antibiotics. Vital signs are stable. The patent is scheduled for discharge in the morning. Plans to continue IV antibiotics, physical therapy and local wound care. PHYSICAL EXAMINATION CHEST: Clear to auscultation and percussion. HEART: Regular sinus rhythm. EXTREMITIES: Minimal edema left foot. No erythema. No cellulitis and minimal tenderness. There is still a scar on the lateral aspect of the fourth left toe. William Yeh MD
--- NOTE | 2018-07-30 13:46 | PN ---
DATE: 07/30/2018 SUBJECTIVE: The patient is seen in 303. No fevers. No chills. No nausea. No vomiting. PHYSICAL EXAMINATION: VITAL SIGNS: Temperature is 98, blood pressure is 168/70 and respiratory rate of 18. HEENT: Unremarkable. NECK: Supple. LUNGS: Decreased breath sounds. HEART: Normal, S1 and S2. ABDOMEN: Soft. LABORATORY DATA: Reviewed. Dr. Yeh note is reviewed. ASSESSMENT AND PLAN: Noted. This is an 83-year-old female, seen in room 303 earlier . She states she is tolerating the antibiotics well, who was admitted with sensitive Staphylococcus aureus cellulitis, which has resolved. CAT scan is negative for osteomyelitis. The patient has poor peripheral arterial disease. Currently, on Keflex. We will discontinue Keflex, no further antibiotics necessary. Valeriano Ann MD
[2018-07-30 16:46] VITALS: RESP 20; TEMP 97.8; O2SAT 98
[2018-07-31] MEDS: Insulin Reg-LOW-Coverage SC SCH ×2 (06:46→11:35)
[2018-07-31] MEDS: GlipiZIDE 10 mg SR Tab PO SCH (07:39)
[2018-07-31] MEDS: Mupirocin 2% Ointment 15 GM TUBE TOP SCH (09:44)
[2018-07-31] MEDS: Dorzolamide 2%/Timolol 0.5% 100 DROP/10 ML BOTTLE OU SCH (09:45)
[2018-07-31] MEDS: Ammonium Lactate 12% Cream (140 g) TOP SCH (09:45)
[2018-07-31] MEDS: POLYETHYLENE GLYCOL 3350 17 GM/Dose PACKET PO SCH (09:45)
[2018-07-31 09:56] VITALS: BP 150/75; PULSE 74
--- NOTE | 2018-07-31 11:57 | CP.PCM.PN ---
<Demetris Jones - Last Filed: 07/31/18 11:46> Subjective - Date & Time of Evaluation Date of Evaluation: 07/31/18 Time of Evaluation: 11:46 - Subjective Subjective: Podiatry progress note - Drs. Rice/Alyssia 83F seen and evaluated in TCU this AM. Reports mild pain to her fourth digit ulceration. Dressing is clean and intact. States she is scheduled to go home today and will follow up with Dr. Cade. Denies n/v/f/c today and has no other acute complaints. Objective - Vital Signs/Intake and Output Vital Signs (last 24 hours): Temp Pulse Resp BP Pulse Ox 97.8 F 74 20 150/75 98 07/30/18 16:00 07/31/18 09:46 07/30/18 16:00 07/31/18 09:46 07/30/18 16:00 - Medications Medications: Current Medications Amlodipine Besylate (Norvasc) 5 mg PO DAILY [facility]FFERY; Protocol Last Admin: 07/31/18 09:45 Dose: Not Given Aspirin (Aspirin Chewable) 81 mg PO 0800 JEFFERY; Protocol Last Admin: 07/31/18 07:39 Dose: 81 mg Atenolol (Tenormin) 25 mg PO DAILY [facility]ERY; Protocol Last Admin: 07/31/18 09:46 Dose: 25 mg Clopidogrel Bisulfate (Plavix) 75 mg PO DAILY [facility]ERY; Protocol Last Admin: 07/31/18 09:45 Dose: 75 mg Dorzolamide/Timolol (Cosopt 2%-0.5% Opht) 0 drop OU DAILY [facility]; Protocol Last Admin: 07/31/18 09:45 Dose: 2 drop Glipizide (Glucotrol Xl) 10 mg PO 0800 JEFFERY; Protocol Last Admin: 07/31/18 07:39 Dose: 10 mg Insulin Human Regular (Humulin R Low) 0 units SC ACHS [facility]FFERY; Protocol Last Admin: 07/31/18 11:35 Dose: Not Given Lactic Acid (Lac-Hydrin 12% Cream (140 G)) 0 ea TOP DAILY [facility]ERY; Protocol Last Admin: 07/31/18 09:45 Dose: 2 dose Losartan Potassium (Cozaar) 100 mg PO DAILY [facility]ERY; Protocol Last Admin: 07/31/18 09:45 Dose: 100 mg Mupirocin (Bactroban Ointment) 0 gm TOP BID EJFFERY Last Admin: 07/31/18 09:44 Dose: 1 applic Oxycodone/Acetaminophen (Percocet 5/325 Mg Tab) 1 tab PO Q6H PRN PRN Reason: Pain, moderate (4-7) Stop: 08/02/18 08:16 Last Admin: 07/30/18 17:17 Dose: 1 tab Polyethylene Glycol (Miralax) 17 gm PO BID JEFFERY; Protocol Last Admin: 07/31/18 09:45 Dose: 17 gm Sitagliptin Phosphate (Januvia) 100 mg PO DAILY [facility]FFERY; Protocol Last Admin: 07/31/18 09:45 Dose: 100 mg - Constitutional Appears: Non-toxic - Head Exam Head Exam: ATRAUMATIC - Extremities Exam Additional comments: B/L lower extremity exam: VASC: DP and PT non-palpable bilaterally, CFT delayed, TG warm to cool, no edema noted ORTHO: mild pain with palpation to wound in fourth interspace NEURO: grossly intact, protective sensation diminished DERM: 2 cm X 1 cm x 0.1 cm wound noted to the lateral aspect of the right 4th digit with fibrous base, no drainage today and no pus noted, no probe to bone, no malodor, no tunneling or tracking - Neurological Exam Neurological Exam: Alert, Awake, Oriented x3 - Psychiatric Exam Psychiatric exam: Normal Affect Assessment and Plan - Assessment and Plan (Free Text) Assessment: 83F patient with right 4th digit ischemic ulcer; stable Plan: Patient seen and evaluated at bedside Discussed with Dr. Rice Wound culture; Staph aureus No evidence of acute OM at this time. Blood culture; no growth Continue local wound care; bactroban, DSD Continue abx per ID reccs Continue PT/OT Stable for discharge and outpatient f/u with Dr. Cade Will continue to follow <Too Rice - Last Filed: 07/31/18 16:41> Objective - Vital Signs/Intake and Output Vital Signs (last 24 hours): Temp Pulse Resp BP Pulse Ox 97.8 F 74 20 150/75 98 07/30/18 16:00 07/31/18 09:46 07/30/18 16:00 07/31/18 09:46 07/30/18 16:00 Attending/Attestation - Attestation I have personally seen and examined this patient.: Yes I have fully participated in the care of the patient.: Yes I have reviewed all pertinent clinical information, including history, physical exam and plan: Yes
--- NOTE | 2018-07-31 13:27 | PN ---
DATE: 07/31/2018 SUBJECTIVE: The patient is in bed, in no acute distress, nontoxic. OBJECTIVE: VITAL SIGNS: Temperature is 98, blood pressure is 150/50, respiratory rate 16. HEENT: Unremarkable. NECK: Supple. LUNGS: Have decreased breath sounds. HEART: Normal S1 and S2. ABDOMEN: Soft. LABORATORY EXAMINATION: . ASSESSMENT AND PLAN: This is an 83-year-old, seen earlier today in no acute distress, nontoxic, was admitted with a sensitive staph aureus cellulitis, which has resolved. CAT scan is negative for osteo and peripheral artery disease and on Keflex. Discontinue the Keflex and now off of antibiotics. Local wound care and the patient is at risk for developing nosocomial infections. Valeriano Ann MD
--- NOTE | 2018-07-31 21:56 | DS ---
HISTORY OF PRESENT ILLNESS: An 83-year-old female who was admitted with a transfer from [facility] to [facility] for continue antibiotics for a diabetic left fourth toe infection, peripheral vascular disease, noninsulin-dependent diabetes mellitus, history of CVA in the past, and hypertension. The patient is completing her course of physical therapy, local wound care, and IV antibiotics. She will be discharged home in improved condition to follow up as an outpatient with myself and also with Dr. Cade. FINAL DISCHARGE DIAGNOSES: Ischemic diabetic left fourth toe infection, peripheral vascular disease, noninsulin-dependent diabetes mellitus, history of cerebrovascular accident, and hypertension. William Yeh MD
== END 2018-07-31 14:20 | disposition home or self-care (01) | DRG 638 ==
LOC: TRCU 19:07
PROVIDERS: ADMIT Internal Medicine Medical Oncology; ATTEND Internal Medicine
PROC: F07Z9FZ Gait Training/Functional Ambulation Treatment using Assistive, Adaptive, Supportive or Protective Equipment (ICD-10-PCS; principal; 2018-07-24)
PROC: F08Z4FZ Home Management Treatment using Assistive, Adaptive, Supportive or Protective Equipment (ICD-10-PCS; 2018-07-24)
DX: E11.621 Type 2 diabetes mellitus with foot ulcer (principal); C91.10 Chronic lymphocytic leukemia of B-cell type not having achieved remission; L03.116 Cellulitis of left lower limb; E11.51 Type 2 diabetes mellitus with diabetic peripheral angiopathy without gangrene; L97.509 Non-pressure chronic ulcer of other part of unspecified foot with unspecified severity; L03.032 Cellulitis of left toe; I10 Essential (primary) hypertension; K59.00 Constipation, unspecified; D64.9 Anemia, unspecified; E11.36 Type 2 diabetes mellitus with diabetic cataract; E78.00 Pure hypercholesterolemia, unspecified; Z86.73 Personal history of transient ischemic attack (TIA), and cerebral infarction without residual deficits; Z79.84 Long term (current) use of oral hypoglycemic drugs; Z79.2 Long term (current) use of antibiotics; Z95.0 Presence of cardiac pacemaker

== ENCOUNTER 2018-08-26 14:18 | Outpatient (CLI) | payer MEDICARE, BC | END 2018-08-26 14:19 | disposition home or self-care (01) | LOC: CARDIO 14:18 ==

== ENCOUNTER 2018-08-27 10:16 | Outpatient (CLI) | payer MEDICARE, BC | END 2018-08-27 10:17 | disposition home or self-care (01) | LOC: RAD 10:16 ==